=== PATIENT | female | born 1965 | race Caucasian/White ===

== ENCOUNTER 2016-06-07 19:28 | Inpatient (IN) | payer MEDICAID ==
[~2016-06-07] VITALS: Ht 157.5 cm; Wt 58.5 kg
[~2016-06-07 19:28] MED LIST: ADVAIR 250/501 DISK INH; ALBUTEROL2.5 MG/3 M UPD; AUGMENTIN 875-11 TAB PO; BENZONATATE200 MG PO; BROVANA15 MCG/2 M INH; CARDIZEM CD120 MG PO; CARDIZEM60 MG PO; CEFTIN PO; CLONAZEPAM2 MG/TAB; CLONAZEPAM2 MG/TAB PO; COMBIVENT RESPIM4 GM; COMBIVENT RESPIM4 GM INH; DALIRESP500 MCG PO; DIAMOX250 MG PO; DOXYCYCLINE HY100 M2 PO; DUONEB 2.5-0.5 M3 ML UPD; FLUTICASONE PRO16 GM NASAL; HYDROCODONE-APA1 TAB PO; IPRAT-ALBUT 0.5-3 ML UPD; KLONOPIN0.5 MG PO; KLONOPIN1 MG PO; LASIX20 MG PO; MEDROL DOSE PACK4 MG PO; MUCINEX DM ER1 EAC1 PO; MUCINEX600 MG PO; NORCO 10/325 TA1 TA1 PO; NORCO 7.5/325 T1 TA1 PO; OMEPRAZOLE20 M1 PO; OMNICEF300 MG PO; POTASSIUM20 MEQ/11 PO; PREDNISONE10 MG PO; PREDNISONE20 MG; PREDNISONE20 MG PO; PRILOSEC20 MG PO; PROLASTIN; PROTONIX40 MG PO; PROVENTIL/2.5 MG/3 M INH; PULMICORT0.5 MG/21 INH; PULMICORT0.5 MG/21 UPD; PULMICORT180 MCG/AE INH; SINGULAIR10 MG PO; SPIRIVA18 MCG INH; STERAPRED 5MG 125 MG PO; THEO-24300 MG PO; THEOCHRON200 MG; THEOCHRON300 MG PO; THEOPHYLLINE A300 MG PO; TIAZAC/CARDIZE180 MG PO; VENTOLIN HFA18 GM INH; VIBRAMYCIN 100100 MG PO; VIBRAMYCIN50 MG/5 ML PO; XANAX0.25 MG PO; XANAX0.5 MG PO; ZANTAC150 MG PO; ZITHROMAX500 MG PO
[2016-06-07 20:49] LABS: BASOPHILS 0.1 % (0.0-2.0); EOSINOPHILS 0 % (0-7); HEMATOCRIT 41.9 % (36.0-48.0); HEMOGLOBIN 13.3 g/dL (12-16); IMMATURE GRANULOCYTES 0.4 % (0-5); LYMPHOCYTES 6.6 % (15-50); MCH 28.3 pg (26.0-34.0); MCHC 31.7 g/dL (31.0-37.0); MCV 89.1 fL (80.0-100.0); MEAN PLATELET VOLUME 9.6 fL (7.4-10.4); MONOCYTES 8.4 % (2-11); NEUTROPHILS 84.5 % (40-80); RDW 14.7 % (11.5-14.5); WBC 8.2 10x3/uL (4.8-10.8)
[2016-06-07 20:50] LABS: PLATELET COUNT 230 10x3/uL (130-400)
[2016-06-07 21:00] LABS: ALBUMIN 3.2 g/dL (3.4-5.0); ALKALINE PHOSPHATASE 74 U/L (46-116); ALT (SGPT) 21 U/L (10-68); BILIRUBIN - TOTAL 0.82 mg/dL (0.2-1.3); CALC OSMOLALITY 270 mosm/kg (275-300); CALCIUM 9.6 mg/dL (8.5-10.1); CARBON DIOXIDE 28.3 mmol/L (21.0-32.0); CHLORIDE - SERUM 97 mmol/L (98-107); CREATININE - SERUM 0.5 mg/dL (0.6-1.3); GLUCOSE 117 mg/dL (74-106); POTASSIUM - SERUM 3.9 mmol/L (3.5-5.1); PROTEIN - SERUM 7.1 g/dL (6.4-8.2); SODIUM 136 mmol/L (136-145); UREA NITROGEN 8 mg/dL (7-18); eGFR NON AFRICAN AMERICAN > 90 mL/min (90-120)
[2016-06-07 21:05] LABS: THEOPHYLLINE 5.6 ug/mL (10.0-20.0)
[2016-06-07 21:11] LABS: TROPONIN-I < 0.017 ng/mL (0.000-0.060)
[2016-06-08 00:14] VITALS: BP 104/66; BMI 23.6
--- NOTE | 2016-06-08 05:07 | NUR ---
SOLUMEDROL GIVEN PER MAR ALONG WITH PRN NORCO FOR C/O BACK PAIN, ELTON WELL, CL IN REACH
[2016-06-08 05:30] LABS: BASOPHILS 0 % (0.0-2.0); EOSINOPHILS 0 % (0-7); HEMATOCRIT 39.5 % (36.0-48.0); HEMOGLOBIN 12.9 g/dL (12-16); IMMATURE GRANULOCYTES 0.4 % (0-5); LYMPHOCYTES 5.8 % (15-50); MCH 28.7 pg (26.0-34.0); MCHC 32.7 g/dL (31.0-37.0); MEAN PLATELET VOLUME 9.9 fL (7.4-10.4); MONOCYTES 3.1 % (2-11); NEUTROPHILS 90.7 % (40-80); PLATELET COUNT 238 10x3/uL (130-400); RBC 4.49 10x6/uL (4.00-5.40); RDW 14.5 % (11.5-14.5); WBC 8.4 10x3/uL (4.8-10.8)
[2016-06-08 05:55] LABS: CALC OSMOLALITY 276 mosm/kg (275-300); CALCIUM 9.1 mg/dL (8.5-10.1); CARBON DIOXIDE 29.8 mmol/L (21.0-32.0); CHLORIDE - SERUM 99 mmol/L (98-107); CREATININE - SERUM 0.5 mg/dL (0.6-1.3); GLUCOSE 129 mg/dL (74-106); POTASSIUM - SERUM 3.7 mmol/L (3.5-5.1); SODIUM 138 mmol/L (136-145); UREA NITROGEN 9 mg/dL (7-18); eGFR NON AFRICAN AMERICAN > 90 mL/min (90-120)
--- NOTE | 2016-06-08 07:15 | NUR ---
PATIENT RECEIVED ALERT IN HIGH PEREIRA POSITION. RESPIRATIONS EVEN AND UNLABORED. SIDE RAILS UP X1. BED IN LOW POSITION. CALL LIGHT IN REACH. GUEST AT BEDSIDE.
[2016-06-08 08:13] VITALS: BP 107/65
--- NOTE | 2016-06-08 09:27 | NUR ---
PATIENT ALERT IN BED. FAMILY AT BEDSIDE. SCHEDULED MEDICATION ADMINISTERED. SIDE RAILS UP X2. BED IN LOW POSITION. CALL LIGHT IN REACH.
--- NOTE | 2016-06-08 10:10 | NUR ---
IV TO LEFT HAND SALINE LOCKED PER ORDER.
--- NOTE | 2016-06-08 10:45 | NUR ---
ALERT IN BED WITH FAMILY PRESENT. REFUSES SCDS
[2016-06-08 11:00] VITALS: Ht 157.5 cm; Wt 58.5 kg
[2016-06-08 11:56] VITALS: BP 112/70
--- NOTE | 2016-06-08 13:30 | NUR ---
PATIENT SITTING UP IN BED ALERT. NO SIGNS OF DISTRESS NOTED. NORCO PER PRN ORDER. FAMILY AT BEDSIDE. SIDE RAILS UPX2. BED IN LOW POSITION. CALL LIGHT IN REACH.
[2016-06-08 15:52] VITALS: BP 119/64
--- NOTE | 2016-06-08 16:19 | NUR ---
Patient Name: NEEL MARIE Admission Status: ER Accout number: [id number] Admission Date: 06-07-2016 : 1965 Admission Diagnosis: Attending: LOS Current LOS: 1 Anticipated DC Date: 06-13-2016 Planned Disposition: Home with Home Health Primary Insurance: MEDICAID [place] Discharge Planning Comments: CM MET WITH PATIENT AND SPOUSE (SHWETHA) REGARDING D/C NEEDS AND PLANS. PATIENT STATED HER SPOUSE WILL DRIVE HER HOME AT DISCHARGE. THERE ARE 3 STEPS W/RAILS TO ENTER HOME AND NO STAIRS INSIDE. PATIENT STATED SHE WALKS WITH A WALKER AT HOME AND ALSO HAS A SHOWER CHAIR, OXYGEN, NEBULIZER, AND PORTABLE O2 AT HOME. PATIENTS PCP IS DR. MCCALL IN [facility] AND USES [facility] IN [place]. PATIENT IS CURRENT WITH [facility]. PCP DR MCCALL [facility] [place]- [phone] SHWETHA (SPOUSE) [phone] Sand Mixer: Ethel Florian
--- NOTE | 2016-06-08 16:30 | NUR ---
PATIENT SITTING UP IN BED. FAMILY AT BEDSIDE. SCHEDULED MEDICATION ADMINISTERED. DENIES NEEDS. SIDE RAILS UP X2. BED IN LOW POSITION. CALL LIGHT IN REACH.
--- NOTE | 2016-06-08 17:45 | NUR ---
SITTING UP ALERT IN BED. C/O PAIN 01/29. 1 TAB NORCO PER PRN ORDER. SIDE RAILS UP X2. BED IN LOW POSITION. CALL LIGHT IN REACH.
[2016-06-08 21:32] VITALS: BP 165/47
[2016-06-09 01:00] VITALS: BP 123/72
--- NOTE | 2016-06-09 02:30 | NUR ---
PATIENT STATED SHE NEEDS SOMETHING FOR 10/10 PAIN. ADMINISTERED PAIN MEDS DUE.
[2016-06-09 05:49] LABS: BASOPHILS 0 % (0.0-2.0); EOSINOPHILS 0 % (0-7); HEMATOCRIT 33.9 % (36.0-48.0); IMMATURE GRANULOCYTES 0.1 % (0-5); LYMPHOCYTES 4.3 % (15-50); MCH 28.4 pg (26.0-34.0); MCHC 32.4 g/dL (31.0-37.0); MCV 87.6 fL (80.0-100.0); MEAN PLATELET VOLUME 10.3 fL (7.4-10.4); MONOCYTES 5.1 % (2-11); NEUTROPHILS 90.5 % (40-80); PLATELET COUNT 235 10x3/uL (130-400); RBC 3.87 10x6/uL (4.00-5.40); RDW 14.6 % (11.5-14.5); WBC 7.7 10x3/uL (4.8-10.8)
[2016-06-09 06:24] LABS: ALBUMIN 2.8 g/dL (3.4-5.0); ALKALINE PHOSPHATASE 55 U/L (46-116); ALT (SGPT) 21 U/L (10-68); BILIRUBIN - TOTAL 0.32 mg/dL (0.2-1.3); CALC OSMOLALITY 281 mosm/kg (275-300); CALCIUM 9.4 mg/dL (8.5-10.1); CARBON DIOXIDE 33.4 mmol/L (21.0-32.0); CHLORIDE - SERUM 100 mmol/L (98-107); CREATININE - SERUM 0.5 mg/dL (0.6-1.3); GLUCOSE 149 mg/dL (74-106); MAGNESIUM - SERUM 1.8 mg/dL (1.8-2.4); PHOSPHOROUS 2.2 mg/dL (2.5-4.9); POTASSIUM - SERUM 3.8 mmol/L (3.5-5.1); PRO BNP 145 pg/mL (0-125); PROTEIN - SERUM 5.9 g/dL (6.4-8.2); SODIUM 140 mmol/L (136-145); UREA NITROGEN 12 mg/dL (7-18); eGFR NON AFRICAN AMERICAN > 90 mL/min (90-120)
--- NOTE | 2016-06-09 07:10 | NUR ---
PATIENT RECEIVED ALERT IN BED. NO SIGNS OF DISTRESS NOTED. IV TO LEFT HAND SALINE LOCKED. SIDE RAILS UP X2. BED IN LOW POSITION. CALL LIGHT IN REACH.
[2016-06-09 08:19] VITALS: BP 106/69
--- NOTE | 2016-06-09 08:43 | NUR ---
PATIENT SITTING UPRIGHT IN BED. FAMILY AT BEDSIDE. SCHEDULED MEDICATION ADMINISTERED WELL PRN ZOFRAN. BED IN LOW POSITION. CALL LIGHT IN REACH.
--- NOTE | 2016-06-09 11:45 | NUR ---
PATIENT IN MID PEREIRA POSITION RESTING WITH EYES CLOSED. RESPIRATIONS EVEN AND UNLABORED. SIDE RAILS UP X2. BED IN LOW POSITION. CALL LIGHT IN REACH.
[2016-06-09 11:53] VITALS: BP 148/62
--- NOTE | 2016-06-09 14:24 | NUR ---
ALERT IN BED. FAMILY AT BEDSIDE. SCHEDULED MEDICATION ADMINISTERED. BED IN LOW POSITION. CALL LIGHT IN REACH.
--- NOTE | 2016-06-09 17:32 | NUR ---
SITTING UP IN BED EATING DINNER. TOLERATING WELL. FAMILY AT BEDSIDE. SIDE RAILS UP X2. BED IN LOW POSITION. CALL LIGHT IN REACH.
[2016-06-09 17:34] VITALS: BP 121/74
[2016-06-09 21:00] VITALS: BP 118/67
[2016-06-10 01:00] VITALS: BP 110/68
[2016-06-10 05:00] VITALS: BP 133/84
[2016-06-10 05:40] LABS: BASOPHILS 0 % (0.0-2.0); EOSINOPHILS 0 % (0-7); HEMATOCRIT 33.3 % (36.0-48.0); HEMOGLOBIN 10.4 g/dL (12-16); IMMATURE GRANULOCYTES 0.5 % (0-5); LYMPHOCYTES 10.1 % (15-50); MCHC 31.2 g/dL (31.0-37.0); MCV 89.5 fL (80.0-100.0); MEAN PLATELET VOLUME 10.1 fL (7.4-10.4); MONOCYTES 5.6 % (2-11); NEUTROPHILS 83.8 % (40-80); PLATELET COUNT 225 10x3/uL (130-400); RBC 3.72 10x6/uL (4.00-5.40); RDW 14.6 % (11.5-14.5)
[2016-06-10 05:55] LABS: WBC 3.8 10x3/uL (4.8-10.8)
[2016-06-10 06:01] LABS: % SATURATION 37 % (15-55); IRON 100 ug/dl (35-150); TOTAL IRON BIND CAPACITY 268 ug/dl (260-445); UNSAT IRON BIND CAPACITY 168 ug/dl (150-375)
[2016-06-10 06:16] LABS: ALBUMIN 2.7 g/dL (3.4-5.0); ALKALINE PHOSPHATASE 60 U/L (46-116); BILIRUBIN - TOTAL 0.22 mg/dL (0.2-1.3); CARBON DIOXIDE 37.3 mmol/L (21.0-32.0); CHLORIDE - SERUM 100 mmol/L (98-107); CREATININE - SERUM 0.6 mg/dL (0.6-1.3); FERRITIN 207 ng/mL (3-244); GLUCOSE 124 mg/dL (74-106); POTASSIUM - SERUM 4.2 mmol/L (3.5-5.1); PROTEIN - SERUM 6.4 g/dL (6.4-8.2); SODIUM 140 mmol/L (136-145); eGFR NON AFRICAN AMERICAN > 90 mL/min (90-120)
[2016-06-10 06:17] LABS: ALT (SGPT) 68 U/L (10-68); CALC OSMOLALITY 281 mosm/kg (275-300); UREA NITROGEN 17 mg/dL (7-18)
--- NOTE | 2016-06-10 07:32 | NUR ---
PATIENT AWAKE, LYING IN BED, ALERT/ORIENT. C/O OF NAUSEA. OXYGEN ON AT 2L PER N/C. CALL LIGHT WITHIN REACH.
[2016-06-10 08:32] VITALS: BP 128/68
--- NOTE | 2016-06-10 11:25 | NUR ---
PRN PAIN MEDICATION GIVEN FOR GENERALIZED AND ALL OVER PAIN/DISC
[2016-06-10 11:50] VITALS: BP 147/82
--- NOTE | 2016-06-10 12:10 | NUR ---
NUTRITION MONITORING & EVAL CHART REVIEWED, PT VISIT. REG DIET WITH 50% INTAKE. DRINKING ENSURE WITH MEALS. RD FOLLOWING
--- NOTE | 2016-06-10 14:43 | NUR ---
DR. MADISON IN SEE PATIENT. NEW ORDERS RECEIVED
--- NOTE | 2016-06-10 14:53 | NUR ---
PRN ZOFRAN GIVEN FOR NAUSEA
[2016-06-10 16:17] VITALS: BP 120/76
--- NOTE | 2016-06-10 16:40 | EC ---
PATIENT:NEEL MARIE DATE OF SERVICE: 06/07/16 SEX: F MEDICAL RECORD: [id number] DATE OF : 63 LOCATION:[facility] AGE OF PATIENT: 50 ADMISSION DATE: 06/07/16 REFERRING PHYSICIAN: INTERPRETING PHYSICIAN: ROSE MARC MD ECHOCARDIOGRAM REPORT ECHO CHARGES 4 ECHO COMPLETE CLINICAL DIAGNOSIS: SOB HX COPD/PALPS ECHOCARDIOGRAPHIC MEASUREMENTS (adult normal given) AC root (d.<3.7cm) 2.8 LV Septum d (<1.2 cm> 1.3 Valve Excursion 1.3 LV Septum (systole) 1.7 Left Atria (s.<4.0cm> 2.4 LVPW d(<1.2cm) 1.4 RV (d.<2.3cm) 2.9 LVPW (sytole) 1.5 LV diastole(<5.6CM) 4.6 MV E-F(>70mm/sec) LV systole 3.3 LVOT Diameter 1.5 MV exc.(>10mm) 1.7 Est.ejection fraction (50-75%) Pericardial Effusion N DOPPLER: LVIT A 108 E 83.0 LA RVSP 33 LVOT 113 AOP1/2T Asc. Ao 122 RVOT 79 RA PA 128 AV Gradient Peak 6.0 AV Mean 2.73 AV Area 1.5 MV Gradient Peak 6.90 MV Mean 3.6 MV Area COMMENTS: Software Installer: Brittany FLYNN Generator Worker:Estefania Marc TAPE# PACS DATE OF SERVICE: 06/09/2016 Echocardiogram FINDINGS: 1. Left ventricular chamber size is within normal limits. Left ventricular systolic function is normal. Overall ejection fraction estimated at 55%. 2. Left atrium, right atrium and right ventricular chamber sizes are within normal limits. 3. Valvular structures have normal structure and motion. ECHOCARDIOGRAM REPORT [id number] NEEL MARIE 4. Doppler interrogation reveals mild tricuspid regurgitation. No other valvular insufficiency or stenosis. 5. No evidence of pericardial effusion or left ventricular thrombus. TRANSINT:[id number] Voice Confirmation ID: [id number] DOCUMENT ID: [id number] ROSE MARC MD at 1640 CC: [id number] DICTATION DATE: 06/10/16 1052 CABLE REELER: 06/10/16 1446 ADM IN [facility] [address] [id number]
--- NOTE | 2016-06-10 18:11 | NUR ---
RELIEF FROM PRN ZOFRAN. ABLE TO EAT 25% OF SUPPER
[2016-06-10 20:19] VITALS: BP 109/66
[2016-06-11 04:20] VITALS: BP 145/78
[2016-06-11 05:24] LABS: BASOPHILS 0 % (0.0-2.0); EOSINOPHILS 0 % (0-7); HEMATOCRIT 35.1 % (36.0-48.0); HEMOGLOBIN 10.5 g/dL (12-16); IMMATURE GRANULOCYTES 5.6 % (0-5); LYMPHOCYTES 12.6 % (15-50); MCH 27.3 pg (26.0-34.0); MCHC 29.9 g/dL (31.0-37.0); MCV 91.2 fL (80.0-100.0); MEAN PLATELET VOLUME 10.1 fL (7.4-10.4); NEUTROPHILS 74.8 % (40-80); PLATELET COUNT 258 10x3/uL (130-400); RBC 3.85 10x6/uL (4.00-5.40); RDW 14.7 % (11.5-14.5)
[2016-06-11 05:46] LABS: ALBUMIN 2.8 g/dL (3.4-5.0); ALKALINE PHOSPHATASE 66 U/L (46-116); CALC OSMOLALITY 281 mosm/kg (275-300); CALCIUM 9.2 mg/dL (8.5-10.1); CARBON DIOXIDE 39.2 mmol/L (21.0-32.0); CHLORIDE - SERUM 100 mmol/L (98-107); CREATININE - SERUM 0.5 mg/dL (0.6-1.3); GLUCOSE 131 mg/dL (74-106); POTASSIUM - SERUM 4.4 mmol/L (3.5-5.1); PROTEIN - SERUM 6.2 g/dL (6.4-8.2); SODIUM 139 mmol/L (136-145); UREA NITROGEN 17 mg/dL (7-18); eGFR NON AFRICAN AMERICAN > 90 mL/min (90-120)
[2016-06-11 05:48] LABS: ALT (SGPT) 124 U/L (10-68)
--- NOTE | 2016-06-11 07:36 | NUR ---
AWAKE AND ALERT. ORIENTED X3. REQUESTED AND GIVNE ONE HYDROCODONE FOR C/O GENERALIZED PAIN AND 4MG ZOFRAN SLOW IVP FOR C/O NAUSEA. NON PRODUCTIVE COUGH NOTED. LUNGS WITH CRACKLES AND WHEEZES THROUGHOUT LUNG MONTERO. SKIN IS INTACT WITHOUT REDNESS. IV TO LEFT HAND IS PATNET WITHOUT REDNESS AT INSERTION SITE. REFUSED SCD'S.
--- NOTE | 2016-06-11 09:00 | NUR ---
TOOK AM MEDS WITHOUT DIFFICULTY. REPORTS PAIN IMPROVED WITH USE OF HYDROCODONE. NO NAUSEA AT THIS TIME.
[2016-06-11 10:06] VITALS: BP 134/86
--- NOTE | 2016-06-11 11:41 | NUR ---
REQUESTED AND GIVNE ONE HYDROCODONE PO FOR C/O GENERALIZED PAIN THAT IS CHRONIC. WILL MONITOR.
--- NOTE | 2016-06-11 12:30 | NUR ---
SITTING UP IN BED EATING LUNCH. AT BEDSIDE. DR. MADISON ROUNDED AND CHANGED PAIN MEDS PER 'S REQUEST. WILL MONITOR.
[2016-06-11 13:01] VITALS: BP 137/85
--- NOTE | 2016-06-11 14:45 | NUR ---
GETTING VERY ANXIOUS AT THIS TIME. SOME SOB NOTED AT THIS TIME. REQUESTED AND GIVEN 0.5 MG CLONIPIN FOR SAME. WILL MONITOR.
--- NOTE | 2016-06-11 17:30 | NUR ---
REQUESTED AND GIVEN ONE HYDROCODONE PO FOR C/O GENERALIZED PAIN LEVEL 10. WILL MONITOR. ATE PART OF SUPPER BUT C/O NAUSEA. WILL MONITOR.
--- NOTE | 2016-06-11 18:05 | NUR ---
REQUESTED AND GIVEN 4MG ZOFRAN SLOW IVP FOR NAUSEA. WILL MONITOR. NO CHANGES NOTED.
[2016-06-11 18:48] VITALS: BP 132/85
[2016-06-11 20:28] VITALS: BP 146/89
--- NOTE | 2016-06-11 23:24 | NUR ---
REC'D IN BED WITH EYES CLOSED EASILY AROUSED WHEN NAME IS CALLED. RESP EVEN AND SLIGHTLY LABORED. HAS BI-PAP IN USE. CAN EXPRESS NEEDS AND WANT. TAKE ALL PO MEDS WHOLE AND WITHOUT DIFFICULTY NOTED. ASSESSMENT COMPLETED. AT BEDSIDE. C/L IN REACH.
[2016-06-12] VITALS (7 sets, daily range): BP systolic 118–148; BP diastolic 70–89
--- NOTE | 2016-06-12 02:06 | NUR ---
RESTING WITH EYES CLOSED, NC IN PLACE, NO ACUTE DISTRESS NOTED, SR'S UP, CL IN REACH
[2016-06-12 04:53] LABS: BASOPHILS 0.5 % (0.0-2.0); EOSINOPHILS 0 % (0-7); HEMATOCRIT 37.9 % (36.0-48.0); HEMOGLOBIN 11.5 g/dL (12-16); IMMATURE GRANULOCYTES 10.5 % (0-5); LYMPHOCYTES 9.1 % (15-50); MCH 27.6 pg (26.0-34.0); MCHC 30.3 g/dL (31.0-37.0); MCV 90.9 fL (80.0-100.0); MEAN PLATELET VOLUME 9.6 fL (7.4-10.4); MONOCYTES 6.4 % (2-11); NEUTROPHILS 73.5 % (40-80); PLATELET COUNT 287 10x3/uL (130-400); RBC 4.17 10x6/uL (4.00-5.40); RDW 14.5 % (11.5-14.5); WBC 5.6 10x3/uL (4.8-10.8)
[2016-06-12 05:11] LABS: ALBUMIN 2.9 g/dL (3.4-5.0); ALKALINE PHOSPHATASE 90 U/L (46-116); CALC OSMOLALITY 285 mosm/kg (275-300); CALCIUM 8.7 mg/dL (8.5-10.1); CARBON DIOXIDE 39.9 mmol/L (21.0-32.0); CHLORIDE - SERUM 97 mmol/L (98-107); CREATININE - SERUM 0.5 mg/dL (0.6-1.3); GLUCOSE 133 mg/dL (74-106); POTASSIUM - SERUM 4.1 mmol/L (3.5-5.1); PROTEIN - SERUM 6.5 g/dL (6.4-8.2); SODIUM 141 mmol/L (136-145); UREA NITROGEN 20 mg/dL (7-18); eGFR NON AFRICAN AMERICAN > 90 mL/min (90-120)
[2016-06-12 05:15] LABS: ALT (SGPT) 418 U/L (10-68)
--- NOTE | 2016-06-12 08:35 | NUR ---
AWAKE AND ALERT. ORIENTED X 3. C/O BACK PAIN AT THIS TIME. LUNGS HAVE CRACKLES AND EXPIRATORY WHEZZES THROUGHOUT. SKIN IS INTACT WITHOUT REDNESS. IV TO LEFT HAND PATENT WITHOUT REDNESS AT INSERTION SIGHT. DENEIES NEEDS.
--- NOTE | 2016-06-12 09:45 | NUR ---
REQUESTED AND GIVNE O.5MG CLONIPIN PO FOR C/O AGITATION AND ANXIETY. WILL MONITOR.
--- NOTE | 2016-06-12 10:30 | NUR ---
RESTING QUIETLY WITH EYES CLOSED. BIPAP IN PLACE AT THIS TIME. AT BEDSIDE.
--- NOTE | 2016-06-12 12:35 | NUR ---
LUNCH SERVED IN ROOM. REQUESTED AND GIVNE ONE HYDROCODONE PO FOR C/O GENERALIZED PAIN LEVEL 10. WILL MONITOR.
--- NOTE | 2016-06-12 18:00 | NUR ---
C/O BEING SWIMMY HEADED. GIVEN 25MG ANITVERT PO. WILL MONITOR.
--- NOTE | 2016-06-12 18:30 | NUR ---
REQUESTED AND GIVEN ONE HYDROCODONE PO FOR C/O GENERALIZED PAIN LEVEL 9. WILL MONITOR.
--- NOTE | 2016-06-12 19:30 | NUR ---
REC'D IN BED AWAKE AND ALERT. RESP LABORED AT THIS TIME. CAN EXPRESS NEEDS AND WANTS. NO C/O NOTED OR VOICED AT THIS TIME. TURN AND REPOSITION SELF AB BORIS. ASSESSMENT COMPLETED. AT BEDSIDE. C/L IN REACH AT BEDSIDE.
--- NOTE | 2016-06-13 04:00 | NUR ---
PT IN BED WITH NO NEEDS. IV TO LEFT HAND INTACT AND SALINE LOC. PT REFUSING SCD'S. O2 @ 2 PER NASAL CANNULA. CRACKLES AND WHEEZED HEARD IN LUNG MONTERO. AT BEDSIDE. SIDE RAILS ARE UP X 2. BED IS LOW. CALL LIGHT IS IN REACH.
--- NOTE | 2016-06-13 04:59 | NUR ---
NO CHANGES NOTED AT THIS TIME WITH NO C/O NOTED OR VOICED AT THIS TIME. C/L IN REACH AT BEDSIDE
[2016-06-13 05:54] VITALS: BP 129/74
--- NOTE | 2016-06-13 06:11 | NUR ---
UNABLE TO START MORNING ABTX AT THIS TIME D/T PT IV INFILTRATED AND SHE REFUSING TO BE RESITED AT THIS TIME. WILL INFORM ONCOMING NURSE OF PT REFUSAL. PT VERY ANXIOUS AT THIS TIME. C/L IN REACH AT BEDSIDE.
[2016-06-13 06:40] LABS: BASOPHILS 0.1 % (0.0-2.0); EOSINOPHILS 0.1 % (0-7); HEMATOCRIT 40.5 % (36.0-48.0); HEMOGLOBIN 12.1 g/dL (12-16); IMMATURE GRANULOCYTES 9.5 % (0-5); LYMPHOCYTES 7.8 % (15-50); MCH 27.6 pg (26.0-34.0); MCHC 29.9 g/dL (31.0-37.0); MCV 92.3 fL (80.0-100.0); MONOCYTES 6.8 % (2-11); NEUTROPHILS 75.7 % (40-80); PLATELET COUNT 307 10x3/uL (130-400); RBC 4.39 10x6/uL (4.00-5.40); RDW 14.5 % (11.5-14.5)
[2016-06-13 06:42] LABS: WBC 8.8 10x3/uL (4.8-10.8)
[2016-06-13 07:06] LABS: ALBUMIN 3.2 g/dL (3.4-5.0); ALKALINE PHOSPHATASE 83 U/L (46-116); ALT (SGPT) 325 U/L (10-68); CALC OSMOLALITY 287 mosm/kg (275-300); CALCIUM 8.9 mg/dL (8.5-10.1); CHLORIDE - SERUM 96 mmol/L (98-107); CREATININE - SERUM 0.5 mg/dL (0.6-1.3); GLUCOSE 148 mg/dL (74-106); POTASSIUM - SERUM 4.3 mmol/L (3.5-5.1); PROTEIN - SERUM 6.4 g/dL (6.4-8.2); SODIUM 142 mmol/L (136-145); UREA NITROGEN 19 mg/dL (7-18); eGFR NON AFRICAN AMERICAN > 90 mL/min (90-120)
[2016-06-13 07:25] LABS: CARBON DIOXIDE 44.2 mmol/L (21.0-32.0)
--- NOTE | 2016-06-13 07:30 | NUR ---
AWAKE AND ALERT. ORIENTED X3. C/O INTENSE BACK PAIN AND GENERALIZED PAIN AT THIS TIME. UNABLE TO GIVE PRN DUE TO TIME CONSTRANTS. LUNGS HAVE CRACKLES WHEEZES THROUGHOUT LUNG MONTERO. OCCASSIONALLLY PRODUCTIVE COUGH NOTED. SL TO RIGHT HAND PATENT WITHOUT REDNESS AT INSERTION SITE. DENIES NEEDS.
--- NOTE | 2016-06-13 11:31 | NUR ---
REQUESTED AND GIVEN ONE HYDROCODONE PO FOR C/O GENERALIZED PAIN LEVEL 10. WILL MONITOR.
[2016-06-13 12:57] VITALS: BP 139/84
[2016-06-13 16:10] VITALS: BP 123/75
--- NOTE | 2016-06-13 17:30 | NUR ---
REQUESTED AND GIVEN ONE HYDROCODONE PO FOR C/O GENERALIZED PAIN LEVEL 10. WILL MONITOR.
--- NOTE | 2016-06-13 18:43 | NUR ---
BACK IN ROOM. SITTING UP EATING DINNER. REPORTS PAIN IMPROVED. DENIES NEEDS. NO CHANGES NOTED.
--- NOTE | 2016-06-13 19:55 | NUR ---
ASSESSMENT COMPLETED, NO ACUTE DISTRESS NOTED, NC IN PLACE, SR'S UP X2, CL IN REACH, SPOUSE IN ROOM, WILL MONITOR
[2016-06-13 21:00] VITALS: BP 131/79
--- NOTE | 2016-06-13 21:14 | NUR ---
MEDS GIVEN PER MAR, ELTON WELL, NO ACUTE DISTRESS NOTED, SPOUSE IN ROOM, CL IN REACH
--- NOTE | 2016-06-13 21:30 | NUR ---
KLONAZEPAM GIVEN PER PT REQUEST, ELTON WELL
[2016-06-14 01:00] VITALS: BP 125/70
--- NOTE | 2016-06-14 01:57 | NUR ---
PRN PAIN MED GIVEN FOR C/O "HEAD TO TOE PAIN" 02/28, ELTON WELL, SPOUSE IN ROOM CL IN REACH
[2016-06-14 05:00] VITALS: BP 155/78
--- NOTE | 2016-06-14 05:17 | NUR ---
PRN KLONIPIN GIVEN PER REQUEST FOR ANXIETY ALONG WITH ROUTINE MEDS, ELTON WELL, CL IN REACH, SPOUSE IN ROOM
[2016-06-14 05:51] LABS: BASOPHILS 0.3 % (0.0-2.0); EOSINOPHILS 0 % (0-7); HEMOGLOBIN 13.4 g/dL (12-16); IMMATURE GRANULOCYTES 9.4 % (0-5); LYMPHOCYTES 10.7 % (15-50); MCH 27.9 pg (26.0-34.0); MCHC 30.5 g/dL (31.0-37.0); MCV 91.7 fL (80.0-100.0); MEAN PLATELET VOLUME 9.6 fL (7.4-10.4); MONOCYTES 9.4 % (2-11); NEUTROPHILS 70.2 % (40-80); PLATELET COUNT 391 10x3/uL (130-400); RDW 14.6 % (11.5-14.5); WBC 13.9 10x3/uL (4.8-10.8)
[2016-06-14 06:10] LABS: ALBUMIN 3.3 g/dL (3.4-5.0); ALKALINE PHOSPHATASE 85 U/L (46-116); ALT (SGPT) 250 U/L (10-68); BILIRUBIN - TOTAL 0.31 mg/dL (0.2-1.3); CALC OSMOLALITY 286 mosm/kg (275-300); CALCIUM 9.4 mg/dL (8.5-10.1); CHLORIDE - SERUM 96 mmol/L (98-107); CREATININE - SERUM 0.5 mg/dL (0.6-1.3); GLUCOSE 112 mg/dL (74-106); POTASSIUM - SERUM 4.4 mmol/L (3.5-5.1); PROTEIN - SERUM 6.6 g/dL (6.4-8.2); SODIUM 143 mmol/L (136-145); UREA NITROGEN 15 mg/dL (7-18); eGFR NON AFRICAN AMERICAN > 90 mL/min (90-120)
[2016-06-14 06:31] LABS: CARBON DIOXIDE 46.8 mmol/L (21.0-32.0)
--- NOTE | 2016-06-14 07:00 | NUR ---
REPORT RECIEVED ASSUMED CARE. PATIENT IN BED WITH IV INTACT. NO COMPLAINTS. CALL LIGHT WITHIN REACH.
[2016-06-14 09:14] VITALS: BP 139/88
[2016-06-14 11:10] VITALS: BP 159/85
[2016-06-14 15:46] VITALS: BP 129/74
--- NOTE | 2016-06-14 16:50 | NUR ---
PATIENT IN BED WITH IV INTACT. NO COMPLAINTS. FAMILY AT BEDSIDE. CALL LIGHT WITHIN REACH.
--- NOTE | 2016-06-14 18:36 | NUR ---
PATIENT RECIEVED PROTONIX AND ZOFRAN FOR NAUSEA. IV INTACT. NO OTHER COMPLAINTS. FAMILY AT BEDSIDE. CALL LIGHT WITHIN REACH.
--- NOTE | 2016-06-14 20:10 | NUR ---
ASSESSMENT COMPLETED, NO ACUTE DISTRESS NOTED, SR'S UP X2, CL IN REACH, SPOUSE AT BEDSIDE, WILL MONITOR
--- NOTE | 2016-06-14 20:54 | NUR ---
MEDS GIVE PER MAR ALONG WITH PRN PAIN MEDS, ELTON WELL, CL IN REACH, SPOUSE IN ROOM
[2016-06-14 21:00] VITALS: BP 139/79
--- NOTE | 2016-06-14 23:15 | NUR ---
RESTING WITH EYES CLOSED, NO RESP DISTRESS NOTED, HOB ELEVATED, NC IN PLACE, CL IN REACH, SPOUSE AT BEDSIDE
--- NOTE | 2016-06-15 03:48 | NUR ---
NORCO GIVEN PER MAR FOR C/O GENERALIZED PAIN 02/28, ELTON WELL, CL IN REACH
[2016-06-15 05:00] VITALS: BP 125/76
[2016-06-15 05:48] LABS: BASOPHILS 0.2 % (0.0-2.0); EOSINOPHILS 0 % (0-7); HEMATOCRIT 43.2 % (36.0-48.0); HEMOGLOBIN 12.8 g/dL (12-16); IMMATURE GRANULOCYTES 8.9 % (0-5); LYMPHOCYTES 12.4 % (15-50); MCH 27.2 pg (26.0-34.0); MCHC 29.6 g/dL (31.0-37.0); MCV 91.7 fL (80.0-100.0); MEAN PLATELET VOLUME 9.4 fL (7.4-10.4); MONOCYTES 9.8 % (2-11); NEUTROPHILS 68.7 % (40-80); PLATELET COUNT 385 10x3/uL (130-400); RBC 4.71 10x6/uL (4.00-5.40); RDW 14.8 % (11.5-14.5)
[2016-06-15 05:50] LABS: WBC 9.6 10x3/uL (4.8-10.8)
[2016-06-15 06:20] LABS: ALKALINE PHOSPHATASE 73 U/L (46-116); BILIRUBIN - TOTAL 0.33 mg/dL (0.2-1.3); CALC OSMOLALITY 286 mosm/kg (275-300); CALCIUM 9.2 mg/dL (8.5-10.1); CHLORIDE - SERUM 98 mmol/L (98-107); CREATININE - SERUM 0.4 mg/dL (0.6-1.3); GLUCOSE 98 mg/dL (74-106); POTASSIUM - SERUM 3.8 mmol/L (3.5-5.1); PROTEIN - SERUM 6.3 g/dL (6.4-8.2); SODIUM 143 mmol/L (136-145); UREA NITROGEN 17 mg/dL (7-18); eGFR NON AFRICAN AMERICAN > 90 mL/min (90-120)
[2016-06-15 06:22] LABS: CARBON DIOXIDE 45.8 mmol/L (21.0-32.0)
[2016-06-15 06:23] LABS: ALT (SGPT) 163 U/L (10-68)
[2016-06-15 08:11] VITALS: BP 131/84
--- NOTE | 2016-06-15 08:58 | NUR ---
SCHEDULED MEDICATIONS ADMINISTERED AT THIS TIME WELL PRN ZOFRAN FOR C.O NAUSEA AT THIS TIME.
--- NOTE | 2016-06-15 09:51 | NUR ---
NUTRITION MONITORING & EVAL CHART REVIEWED. REG DIET, 25% INTAKE BREAKFAST. ENSURE WITH MEALS. WILL HONOR FOOD PREFERENCES, PROVIDE ENSURE. RD FOLLOWING
--- NOTE | 2016-06-15 10:25 | NUR ---
C/O DIZZINESS AT THIS TIME. VITAL SIGNS OBTAINED. BP 151/82 AND PULSE 109. WILL ADMINISTER ANTIVERT AND NORCO-5.
--- NOTE | 2016-06-15 10:44 | NUR ---
CM REASSESSMENT NOTE: CM MET WITH PATIENT AND SPOUSE THIS AM. SPOUSE STATED THEY DECIDED LAST NIGHT NOT TO GO WITH HOSPICE. STATED THEY WOULD STAY WITH [facility] FOR NOW. HOSPICE WAS NOTIFIED OF PATIENTS DECISION
[2016-06-15] MEDS ORDERED: CEFUROXIME250 MG PO (12:00)
[2016-06-15] MEDS ORDERED: MEDROL DOSE PACK4 MG PO (12:01)
--- NOTE | 2016-06-15 12:10 | NUR ---
PT TO D/C HOME TODAY. DENIES NEEDS AT THIS TIME. WILL CONTINUE WITH PLAN OF CARE.
[2016-06-15 12:13] VITALS: BP 132/86
--- NOTE | 2016-06-15 14:19 | NUR ---
CM REASSESSMENT NOTE: PATIENT IS DISCHARGING HOME TODAY-SPOUSE DRIVING PATIENT HOME. PATIENT IS CURRENT WITH [facility] AND THEY ARE AWARE OF DISCHARGE.
--- NOTE | 2016-06-15 14:55 | NUR ---
DISCHARGE PAPERWORK REVIEWED AND GIVEN TO PT. IV TO RIGHT HAND D/C WITH CATH TIP INTACT. DENIES QUESTIONS OR CONCERNS. D/C HOME WITH VIA PRIVATE VEHICLE.
[2016-06-17 16:15] LABS: AEROBE ID Final report (())
--- NOTE | 2016-08-18 11:10 | DS ---
PATIENT:NEEL MARIE :63 MEDICAL RECORD: [id number] DISCHARGE SUMMARY ADMISSION DATE: 06/07/16 DISCHARGE DATE: 06/15/16 DATE OF ADMISSION: 06/07/2016 DATE OF DISCHARGE: 06/15/2016 DISCHARGE DIAGNOSES: 1. Acute exacerbation of chronic obstructive pulmonary disease. 2. Pneumonia. 3. ____. 4. Allergic rhinitis. 5. Anxiety. 6. Usups-nl-vpnmpdj hypoxic hypercapnic respiratory failure. 7. Severe end-stage chronic obstructive pulmonary disease. CONSULTS: Vasyl Sterling MD. DIAGNOSTIC TEST OR STUDIES: 1. Chest x-ray, which shows emphysema and bilateral infiltrates and effusions. 2. MRI of the brain, which showed no acute pathology. 3. CT of the abdomen and pelvis, which showed no acute abdominal or pelvic pathology, hepatic stenosis and hepatomegaly. HOSPITAL COURSE: The full H&P is listed elsewhere on the chart for this 50-year-old patient with end-stage renal disease, who presented with [id number] hypoxic and hypercapnic respiratory failure, required an inpatient admit. The patient was started on aggressive pulmonary toilet with broad-spectrum antibiotic therapy and steroids. The patient did have some transient tachycardia. It was felt to be due to her respiratory medications. Her theophylline was discontinued. Her Cardizem was increased due to the tachycardia for rate control. The patient's clinical condition improved with aggressive pulmonary toilet. Antibiotic therapy was deescalated. The patient was thought to be stable for discharge to home with follow up in the outpatient setting. TRANSINT:[id number] Voice Confirmation ID: [id number] DOCUMENT ID: [id number] Dictated By: JODIE JAMES I have interviewed/examined the above patient and agree with these documented findings. MAHIN STAPLETON MD at 1110 at 0811 CC: [id number] DICTATION DATE: 08/17/16 0915 CATERER'S AIDE: 08/18/16 0055 DIS IN 06/15/16 [facility] [address] [place] [address]
== END 2016-06-15 15:00 | disposition home health service (06) | DRG 189 ==
LOC: D.ER 19:28 → D.MS 20:28
PROVIDERS: Emergency Medicine; Family Medicine; Internal Medicine Pulmonary Disease; ADMIT Family Medicine
DX: J96.22 Acute and chronic respiratory failure with hypercapnia (principal); J18.9 Pneumonia, unspecified organism; J44.0 Chronic obstructive pulmonary disease with (acute) lower respiratory infection; J98.11 Atelectasis; E46 Unspecified protein-calorie malnutrition; I50.30 Unspecified diastolic (congestive) heart failure; J44.1 Chronic obstructive pulmonary disease with (acute) exacerbation; J96.21 Acute and chronic respiratory failure with hypoxia; Z99.81 Dependence on supplemental oxygen; Z68.23 Body mass index [BMI] 23.0-23.9, adult; J30.9 Allergic rhinitis, unspecified; K21.9 Gastro-esophageal reflux disease without esophagitis; F41.9 Anxiety disorder, unspecified; Z91.19 Patient's noncompliance with other medical treatment and regimen; D64.9 Anemia, unspecified; R42 Dizziness and giddiness

== ENCOUNTER 2016-11-10 21:45 | Inpatient (IN) | payer MEDICAID ==
[~2016-11-10] VITALS: Ht 157.5 cm; Wt 51.9 kg
[~2016-11-10 21:45] MED LIST changes: +CEFUROXIME250 MG PO
[2016-11-10 22:51] LABS: BASOPHILS 0.3 % (0-2); EOSINOPHILS 6.4 % (0-7); IMMATURE GRANULOCYTES 0.1 % (0-5); LYMPHOCYTES 20.1 % (15-50); MCH 28.6 pg (26.0-34.0); MCHC 29.7 g/dL (31.0-37.0); MCV 96.1 fL (80.0-100.0); MEAN PLATELET VOLUME 10.2 fL (7.4-10.4); MONOCYTES 15.7 % (2-11); NEUTROPHILS 57.4 % (40-80); RBC 3.85 10x6/uL (4.00-5.40); RDW 13.3 % (11.5-14.5); WBC 7.8 10x3/uL (4.8-10.8)
[2016-11-10 22:53] LABS: PLATELET COUNT 242 10x3/uL (130-400)
[2016-11-10 23:06] LABS: ALBUMIN 2.9 g/dL (3.4-5.0); ALKALINE PHOSPHATASE 83 U/L (46-116); ALT (SGPT) 17 U/L (10-68); BILIRUBIN - TOTAL 0.52 mg/dL (0.2-1.3); CALC OSMOLALITY 284 mosm/kg (275-300); CALCIUM 9.1 mg/dL (8.5-10.1); CHLORIDE - SERUM 100 mmol/L (98-107); CREATININE - SERUM 0.6 mg/dL (0.6-1.3); GLUCOSE 128 mg/dL (74-106); MAGNESIUM - SERUM 1.9 mg/dL (1.8-2.4); POTASSIUM - SERUM 3.8 mmol/L (3.5-5.1); PROTEIN - SERUM 6.4 g/dL (6.4-8.2); SODIUM 142 mmol/L (136-145); UREA NITROGEN 13 mg/dL (7-18); eGFR NON AFRICAN AMERICAN > 90 mL/min (90-120)
[2016-11-10 23:15] LABS: CARBON DIOXIDE 41.8 mmol/L (21.0-32.0)
[2016-11-11 02:14] VITALS: BP 111/63; BMI 20.9
[2016-11-11 04:00] VITALS: BP 110/60
--- NOTE | 2016-11-11 07:45 | NUR ---
INTRODUCED MYSELF TO PT PRIMARY RN FOR TODAYS SHIFT. SHIFT ASSESSMENT COMPLETED. PT IS RESTING QUIETLY IN BED ON HER BIPAP. DENIES ANY CURRENT NEEDS AND WOULD LIKE TO CONTINUE RESTING AT THIS TIME. CL IN REACH, BED IN LOWEST, SIDE RAILS X2. WILL CTM.
[2016-11-11 08:00] VITALS: BP 129/79
--- NOTE | 2016-11-11 08:00 | NUR ---
PT REQUESTING TO HAVE HER BIPAP OFF TO EAT BREAKFAST SO I ALLOWED HER TO. PT WEARING HER NC @2L AND PULSE OX IS 95% PT C/O NECK AND GENERALIZED PAIN AND WAS PROVIDED WITH HER NORCO. UPDATED MED REC R/T IT BEING INCORRECT AND IS NOW MOST ACCURATE. PT HAS AT BEDSIDE AND DENIES ANY FURTHER NEEDS AT THIS TIME. CL IN REACH, BED IN LOWEST, SIDE RAILS X2. WILL CTM.
--- NOTE | 2016-11-11 10:21 | NUR ---
PT REFUSED TO PUT BIPAP BACK ON AT THIS TIME BUT STATES SHE WILL IN A LITTLE BIT. PT RR ARE EVEN AND NONLABORED WITH NC @2L IN PLACE AND PULSE OX 95% PT DENIES ANY SOB AND STATES SHE IS FEELING PRETTY GOOD. NO FURTHER NEEDS. WILL CTM.
[2016-11-11 12:00] VITALS: BP 99/53
[2016-11-11 12:32] VITALS: Ht 157.5 cm; Wt 51.9 kg
--- NOTE | 2016-11-11 14:34 | NUR ---
PTS L.AC PIV INFILTRATED. D/C WITH CATHETER TIP FULLY INTACT. WILL GET NEW IV ACCESS AND CTM.
--- NOTE | 2016-11-11 15:19 | NUR ---
PT RESTING IN BED WITH AT BEDSIDE. PROVIDED PT WITH SCHEDULED MEDS VIA L.FA PIV. SITE FLUSHES EASILY AND HAS GOOD BLOOD RETURN. PROVIDED PT WITH LOVENOX FOR DVT PROPHYLACTICS. PT DENIES ANY FURTHER NEEDS AT THIS TIME. CL IN REACH, BED IN LOWEST, SIDE RAILS X2. WILL CTM.
[2016-11-11 16:00] VITALS: BP 105/66
[2016-11-11 18:50] LABS: % SATURATION 18 % (15-55); IRON 45 ug/dl (35-150); TOTAL IRON BIND CAPACITY 250 ug/dl (260-445); UNSAT IRON BIND CAPACITY 205 ug/dl (150-375)
[2016-11-11 19:00] VITALS: BP 124/70
--- NOTE | 2016-11-11 19:10 | NUR ---
REC UPDRAFT TX. DENIES ANY NEEDS. RATES PAIN LEVEL AT 10 ON NUMBER SCALE, DESCRIBED ACHING, THROBBING "ALL OVER". IV IN L FA INTACT SL. HER IS PRESENT IN ROOM.
--- NOTE | 2016-11-11 23:00 | NUR ---
CALLED DR ROSARIO RE: PATIENT'S REQUEST FOR HOME MED CLONOPIN 1 MG PO THAT SHE TAKES FOR ANXIETY.
[2016-11-12] VITALS: BP 92/57
--- NOTE | 2016-11-12 00:05 | NUR ---
ADMIN CLONOPIN 1MG PO AND NORCO 7.5MG PO FOR C/O PAIN AND ANXIETY.
--- NOTE | 2016-11-12 00:05 | NUR ---
ADMIN CLONOPIN 1MG PO AND NORCO 7.5MG PO PER REQUEST FOR C/O CHRONIC PAIN "ALL OVER" DESCRIBED ACHING, THROBBING. REQUESTED BIPAP ON. WILL CALL RT.
--- NOTE | 2016-11-12 06:10 | NUR ---
ADMIN NORCO PO PER REQUEST FOR C/O ACHING, THROBBING PAIN LEVEL 10 "ALL OVER". REQUESTED MORE COFFEE.
[2016-11-12 06:40] LABS: BASOPHILS 0 % (0-2); EOSINOPHILS 0 % (0-7); HEMATOCRIT 34.6 % (36.0-48.0); HEMOGLOBIN 10.4 g/dL (12-16); IMMATURE GRANULOCYTES 0.3 % (0-5); LYMPHOCYTES 12.2 % (15-50); MCHC 30.1 g/dL (31.0-37.0); MCV 93.3 fL (80.0-100.0); MEAN PLATELET VOLUME 10.1 fL (7.4-10.4); MONOCYTES 4.8 % (2-11); NEUTROPHILS 82.7 % (40-80); PLATELET COUNT 278 10x3/uL (130-400); RBC 3.71 10x6/uL (4.00-5.40); RDW 13.3 % (11.5-14.5); WBC 3.8 10x3/uL (4.8-10.8)
[2016-11-12 06:54] LABS: CALC OSMOLALITY 284 mosm/kg (275-300); CALCIUM 9.5 mg/dL (8.5-10.1); CARBON DIOXIDE 39.1 mmol/L (21.0-32.0); CHLORIDE - SERUM 98 mmol/L (98-107); CREATININE - SERUM 0.6 mg/dL (0.6-1.3); GLUCOSE 145 mg/dL (74-106); SODIUM 141 mmol/L (136-145); UREA NITROGEN 14 mg/dL (7-18); eGFR NON AFRICAN AMERICAN > 90 mL/min (90-120)
--- NOTE | 2016-11-12 07:54 | NUR ---
INTRODUCED MYSELF TO PT PRIMARY RN FOR TODAYS SHIFT. PT IS A&O RESTING QUIETLY IN BED. RR NONLABORED WITH NC @2L IN PLACE. PT IS TO WEAR HER BIPAP OVERNIGHT AND STATES SHE DID. SHIFT ASSESSMENT COMPLETED. PT HAS A L.FA PIV WITH DRSG CDI AND SWAB CAPS IN USE. PT STATES SHE SLEPT WELL OVERALL AND HAD A GOOD NIGHT, DENIES ANY CURRENT PAIN OR NEEDS. CL IN REACH, BED IN LOWEST, SIDE RAILS X2. WILL CPOC.
[2016-11-12 08:00] VITALS: BP 116/68
--- NOTE | 2016-11-12 09:33 | NUR ---
MORNING MEDICATION PASS COMPLETED. PT REFUSED HER LOVENOX TODAY R/T IT HURTING ON ADMINSTRATION. I WENT INTO GREAT DETAIL OF REASONING AND PURPOSES OF THIS MED TO PREVENT BLOOD CLOTS AND PT STATES "I STILL DONT NEED IT I GET UP AND WALK AND MOVE AROUND A LOT" PT ALSO REFUSES TO WEAR SCDS BUT SHE IS AMBULATORY AND UP AD BORIS. PT RESTING IN BED WITH AT BEDSIDE. PT ALSO REFUSES HER KLONOPIN AND STATES SHE ONLY NEEDS IT PRN. CL IN REACH, BED IN LOWEST, SIDE RAILS X2. WILL CTM.
[2016-11-12 12:00] VITALS: BP 114/71
--- NOTE | 2016-11-12 12:50 | NUR ---
PT SITTING UP IN BED RESTING QUIETLY WITH AT BEDSIDE. RR NONLABORED WITH NC @2L IN PLACE. ENCOURAGED PT TO DEEP BREATHE AND DID TEACHING ON HOW TO PERFORM. PT DOESNT PERFORM CORRECTLY AND IS A MOUTH BREATHER BUT STATES SHE WILL WORK ON IT. NO FURTHER NEEDS AT THIS TIME. CL IN REACH, BED IN LOWEST, SIDE RAILS X2. WILL CTM.
--- NOTE | 2016-11-12 15:30 | NUR ---
PT RESTING IN BED QUIETLY VISITING WITH FAMILY DENIES ANY CURRENT NEEDS. WILL CTM.
[2016-11-12 16:00] VITALS: BP 119/71
--- NOTE | 2016-11-12 18:29 | NUR ---
PT C/O PAIN AND NAUSEA AND IRRITABILITY. PT NOT ABLE TO HAVE ANY MEDS TO TREAT IT AT THIS TIME. OFFERED PT AN ICE PACK BUT SHE DENIES WANTING IT. TURNED OUT LIGHTS AND PT IS GOING TO TRY AND REST. NO FURTHER NEEDS AT THIS TIME.
[2016-11-12 19:00] VITALS: BP 122/65
--- NOTE | 2016-11-12 19:15 | NUR ---
PT IN BED WITH AT BEDSIDE C/O NAUSEA AND ASKING ABOUT PAIN MEDICATION. TOLD HER LAST DOSE WAS 1730 AND NEXT DOSE ISNT TIL 2330. OFFERED [facility] [place] TO HELP. IV TO LEFT FORARM INTACT AND SALINE LOCKED.
--- NOTE | 2016-11-12 22:51 | NUR ---
PT C/O UNABLE TO SLEEP DUE TO PAIN ASKED FOR HER NORCO. GAVE HYDROCODONE 7.5 PER REQUEST,
[2016-11-13] VITALS (7 sets, daily range): BP systolic 119–150; BP diastolic 63–81
[2016-11-13 05:29] LABS: BASOPHILS 0 % (0-2); EOSINOPHILS 0 % (0-7); HEMATOCRIT 34.4 % (36.0-48.0); HEMOGLOBIN 10.5 g/dL (12-16); IMMATURE GRANULOCYTES 0.2 % (0-5); LYMPHOCYTES 7.8 % (15-50); MCH 28.1 pg (26.0-34.0); MCHC 30.5 g/dL (31.0-37.0); MEAN PLATELET VOLUME 9.5 fL (7.4-10.4); MONOCYTES 2.2 % (2-11); NEUTROPHILS 89.8 % (40-80); PLATELET COUNT 286 10x3/uL (130-400); RBC 3.74 10x6/uL (4.00-5.40); RDW 13.6 % (11.5-14.5)
[2016-11-13 05:44] LABS: CALC OSMOLALITY 280 mosm/kg (275-300); CALCIUM 9.3 mg/dL (8.5-10.1); CARBON DIOXIDE 37.6 mmol/L (21.0-32.0); CHLORIDE - SERUM 98 mmol/L (98-107); GLUCOSE 143 mg/dL (74-106); POTASSIUM - SERUM 4.1 mmol/L (3.5-5.1); SODIUM 139 mmol/L (136-145); UREA NITROGEN 15 mg/dL (7-18); eGFR NON AFRICAN AMERICAN 80 mL/min (90-120)
[2016-11-13 05:45] LABS: CREATININE - SERUM 0.8 mg/dL (0.6-1.3)
--- NOTE | 2016-11-13 10:00 | NUR ---
MORNING MEDICATIONS GIVEN. PT REFUSED HER LOVENOX AGAIN TODAY AND WAS QUESTIONING ALL HER OTHER MEDICATIONS. THOROUGH TEACHING PROVIDED AND PT AGREED TO TAKE HER OTHER MEDICATIONS BUT STILL SEEMS SKEPTICAL AND VERBALIZED UNDERSTANDING. PT STATES SHE IS NOT FEELING GOOD RIGHT NOW I PROVIDED HER WITH PRN PAIN MEDICATION AND SHE STILL IS COMPLAINING SHE ISNT FEELING WELL AND STATES SHES JUST SICK BUT CANT EXPLAIN HOW SHE FEELS SHE STATES. PT DENIES WANTING ANYTHING ELSE FROM ME AT THIS TIME. CL IN REACH, BED IN LOWEST, SIDE RAILS X2. WILL CPOC.
--- NOTE | 2016-11-13 19:00 | NUR ---
INITIAL ROUNDS MADE. PT SITTING UP IN BED WATCHING TV. RT IN ROOM FOR SCHEDULED UPD. DENIES NEEDS OR C/O AT THIS TIME. WILL CONT TO MONITOR.
--- NOTE | 2016-11-13 21:27 | NUR ---
HS MEDS GIVEN WITHOUT DIFFICULTY. WILL CONT TO MONITOR.
[2016-11-14 04:00] VITALS: BP 126/78
[2016-11-14 05:11] LABS: BASOPHILS 0 % (0-2); EOSINOPHILS 0 % (0-7); HEMATOCRIT 35.1 % (36.0-48.0); HEMOGLOBIN 10.7 g/dL (12-16); IMMATURE GRANULOCYTES 0.4 % (0-5); MCH 28.3 pg (26.0-34.0); MCHC 30.5 g/dL (31.0-37.0); MCV 92.9 fL (80.0-100.0); MEAN PLATELET VOLUME 9.9 fL (7.4-10.4); MONOCYTES 4.5 % (2-11); NEUTROPHILS 86.1 % (40-80); PLATELET COUNT 304 10x3/uL (130-400); RBC 3.78 10x6/uL (4.00-5.40); RDW 13.9 % (11.5-14.5); WBC 4.9 10x3/uL (4.8-10.8)
[2016-11-14 05:28] LABS: CALC OSMOLALITY 280 mosm/kg (275-300); CALCIUM 8.9 mg/dL (8.5-10.1); CARBON DIOXIDE 37.2 mmol/L (21.0-32.0); CHLORIDE - SERUM 101 mmol/L (98-107); GLUCOSE 131 mg/dL (74-106); SODIUM 140 mmol/L (136-145); UREA NITROGEN 12 mg/dL (7-18)
[2016-11-14 05:29] LABS: CREATININE - SERUM 0.5 mg/dL (0.6-1.3); POTASSIUM - SERUM 4.8 mmol/L (3.5-5.1); eGFR NON AFRICAN AMERICAN > 90 mL/min (90-120)
--- NOTE | 2016-11-14 07:57 | NUR ---
AM ROUNDING DONE WITH PATIENT RECEIVED A BREATHING TREATMENT AT THIS TIME. BIPAP AT BEDSIDE. DENIES NEEDS WHEN ASKED. ON 2L PER NC. LEFT FA SEEN WITH SALINE LOCK. ON EP, LAB VALUES ARE WNL.
[2016-11-14 08:21] VITALS: BP 138/82
--- NOTE | 2016-11-14 10:54 | NUR ---
Is the patient Alert and Oriented? Yes 0 * How many steps to enter\exit or inside your home? Three 0 * PCP DR Reed 0 * Pharmacy [facility] in [place], [place] 0 * Preadmission Environment Home with Family 0 * Partial ADLs (Assistance needed) Ambulation Bathing Dressing Medication Management 0 * Equipment Nebulizer Oxygen Rolling Walker 0 * Other Equipment Had BIPAP with [facility]- picked up today due to noncompliance as per Medicaid Oxygen and Nebulizer with [employer] 0 * List name and contact numbers for known caregivers / representatives who currently or will assist patient after discharge: Elsy Salazar [facility]- [phone] Rafael Amparo- [facility]- [phone] 0 * Additional services required to return to the preadmission environment? Yes 0 * Can the patient safely return to the preadmission environment? Yes 0 * Has this patient been hospitalized within the prior 30 days at any hospital? No 0
--- NOTE | 2016-11-14 11:15 | NUR ---
CM met w/ the patient and her , Arias, at the bedside. Naya plans on returning to home at discharge w/ family. She states she has had home health in the past with [facility]. Does not feel she will need h/h at discharge. Will advise CM if needed. CM received MD order to explore issue with patient's BIPAP and supplier. TC to [facility] regarding DME. Spoke with Landen at [facility]/ [facility]. They provide her oxygen and nebulizer but not the BIPAP. Patient gave permission to call the daughter, Elsy, she "handles all of those things". TC to [facility]. She did not know if patient had BIPAP, CPAP or Trilogy. But [facility] was the supplier. She states they had picked up the machine this AM. TC to [facility]. Spoke w/ Sandra. She stated the patient had BIPAP. Medicaid had been denying payment due to patient's noncompliance. They had apparently taken a previous machine away for same issue. Unable to resolve issue favorable for the patient. PCP DR Reed [facility]- [facility] in [place]. DME- oxygen. nebulizer, walker DME provider- [facility] TC to daughter. Advised her to call Medicaid and speak with hem personally as she states the patient has been complaint. Patient has 3 steps with side rail to enter her home. Denies any need at this time.
[2016-11-14 12:18] VITALS: BP 115/73
[2016-11-14 13:13] LABS: FOLATE (FOLIC ACID) - SERUM 9.2 ng/mL (>3.0)
[2016-11-14] MEDS ORDERED: Levaquin PO (16:06)
[2016-11-14] MEDS ORDERED: IPRAT-ALBUT 0.5-3 ML INH (16:07)
--- NOTE | 2016-11-14 17:57 | NUR ---
COMPLAINTS OF NAUSEA, ZOFRAN GIVEN. INFORMED PATIENT THAT SHE NEEDED TO WAIT 30 MIN BEFORE DISCHARGE.
--- NOTE | 2016-11-14 18:44 | NUR ---
ALERT AND ORIENTED X4. AT BEDSIDE. ANXIOUS TO GO HOME. EXPRESSES BEING MAD PAIN MEDICATIONS NO GIVEN DUE TO IT BEING 1 HOUR TOO SOON. DC LT HAND IV TIP INTACT. DISCHARGE INSTRUCTIONS GIVEN. WRITTEN LEVAQUIN PRESCRIPTION PROVIDED. DISCHARGE PAPERS SIGNED ON CHART. ESCORT TO RIDE VIA WHEELCHAIR. REMAINS FREE FROM INJURY.
--- NOTE | 2016-11-15 09:03 | NUR ---
Patient Name: NEEL MARIE Encounter No: [id number] : 1965 Primary Insurance: MEDICAID [facility] DC Date: Planned Disposition: Home LATE ENTRY FROM 11-14-16 AT APPROXIMATELY 1500 HOURS DCP follow-up note: CM RECEIVED TELEPHONE MESSAGE FROM PT'S DAUGHTER, REQUESTING RETURN CALL FROM CM. CM CALLED AND SPOKE TO LIBAN MARIE, . LIBAN REPORTS THAT SHE HAS SPOKEN TO JANICE CASAS [employer] WHO IS GOING TO DOWNLOAD THE CHIP FROM THE [employer] MACHINE AND SUBMIT TO MEDICAID TO SEE IF THAT WILL HELP PT GET THE MACHINE BACK. LIBAN ASKED WHAT ELSE COULD BE DONE. CM INFORMED PT THAT IF INSURANCE REFUSES TO PAY, PT HAS OPTION TO PAY [employer] FOR MACHINE OR TO ASK FOR REVIEW BY MEDICAID OR BOTH; CM OFFERED TO PROVIDE NUMBER TO MEDICAID DENIAL LINE, LIBAN REFUSED AND STATED PT CANNOT AFFORD THE MACHINE WITHOUT INSURANCE PROVIDING IT AND SHE HAS A DENIAL LETTER IN HER HAND THAT STATES THE APPEAL MUST BE IN WRITING. YONNY WILL ASSIST PT WITH THE APPEAL TO MEDICAID TO REINSTATE TRILOGY MACHINE PAYMENT. Chun Orozco, CASE MANAGEMENT
== END 2016-11-14 18:46 | disposition home or self-care (01) | DRG 189 ==
LOC: D.ER 21:45 → D.M2 23:23
PROVIDERS: Emergency Medicine; ADMIT Family Medicine
PROC: 5A09457 Assistance with Respiratory Ventilation, 24-96 Consecutive Hours, Continuous Positive Airway Pressure (ICD-10-PCS; principal; 2016-11-10)
DX: J96.22 Acute and chronic respiratory failure with hypercapnia (principal); J44.1 Chronic obstructive pulmonary disease with (acute) exacerbation; E46 Unspecified protein-calorie malnutrition; I42.9 Cardiomyopathy, unspecified; J96.21 Acute and chronic respiratory failure with hypoxia; Z91.19 Patient's noncompliance with other medical treatment and regimen; Z87.891 Personal history of nicotine dependence; E88.01 Alpha-1-antitrypsin deficiency; K21.9 Gastro-esophageal reflux disease without esophagitis; J30.9 Allergic rhinitis, unspecified; G89.29 Other chronic pain; F41.9 Anxiety disorder, unspecified; I07.1 Rheumatic tricuspid insufficiency; D64.9 Anemia, unspecified; Z68.20 Body mass index [BMI] 20.0-20.9, adult

== ENCOUNTER 2017-03-04 22:29 | Emergency (ER) | payer MEDICAID ==
[2016-11-11 12:32] VITALS: BMI 20.8
[~2017-03-04 22:29] MED LIST changes: +IPRAT-ALBUT 0.5-3 ML INH; +Levaquin PO
[2017-03-04 23:27] LABS: BASOPHILS 0.4 % (0-2); EOSINOPHILS 5.9 % (0-7); HEMATOCRIT 39.7 % (36.0-48.0); HEMOGLOBIN 12.2 g/dL (12-16); IMMATURE GRANULOCYTES 0.2 % (0-5); LYMPHOCYTES 37.3 % (15-50); MCH 28.6 pg (26.0-34.0); MCHC 30.7 g/dL (31.0-37.0); MCV 93.2 fL (80.0-100.0); MEAN PLATELET VOLUME 9.8 fL (7.4-10.4); MONOCYTES 9.5 % (2-11); NEUTROPHILS 46.7 % (40-80); PLATELET COUNT 299 10x3/uL (130-400); RBC 4.26 10x6/uL (4.00-5.40); RDW 12.7 % (11.5-14.5); WBC 5.6 10x3/uL (4.8-10.8)
[2017-03-04 23:43] LABS: ALBUMIN 3.5 g/dL (3.4-5.0); ALKALINE PHOSPHATASE 70 U/L (46-116); ALT (SGPT) 14 U/L (10-68); BILIRUBIN - TOTAL 0.45 mg/dL (0.2-1.3); CALC OSMOLALITY 285 mosm/kg (275-300); CALCIUM 9.3 mg/dL (8.5-10.1); CARBON DIOXIDE 39.7 mmol/L (21.0-32.0); CHLORIDE - SERUM 101 mmol/L (98-107); CREATININE - SERUM 0.4 mg/dL (0.6-1.3); GLUCOSE 109 mg/dL (74-106); POTASSIUM - SERUM 3.5 mmol/L (3.5-5.1); PROTEIN - SERUM 7.2 g/dL (6.4-8.2); SODIUM 144 mmol/L (136-145); UREA NITROGEN 7 mg/dL (7-18); eGFR NON AFRICAN AMERICAN > 90 mL/min (90-120)
== END 2017-03-05 01:34 | disposition home or self-care (01) ==
LOC: D.ER 22:29
PROVIDERS: Emergency Medicine
DX: J44.1 Chronic obstructive pulmonary disease with (acute) exacerbation (principal); A08.4 Viral intestinal infection, unspecified

== ENCOUNTER 2017-05-13 19:07 | Inpatient (IN) | payer MEDICAID ==
[~2017-05-13] VITALS: Ht 162.6 cm; Wt 57.5 kg
--- NOTE | ~2017-05-13 | CN ---
PATIENT NAME:NEEL MARIE MEDICAL RECORD: [id number] : 63 LOCATION:[facility].2304 ADMIT DATE: 05/13/17 ACCOUNT: [id number] CONSULTING PHYSICIAN: KRIS DELEON MD REFERRING PHYSICIAN: JOSESITO DE JESUS MD DATE OF CONSULTATION: 05/14/2017 Pulmonary Consultation REASON FOR CONSULTATION: The patient has end-stage COPD, alpha-1 antitrypsin deficiency. She follows up Dr. Sterling. HISTORY OF PRESENT ILLNESS: The patient became very weak and lethargic. Her pulse ox was 60. The patient was brought into the ER and emergently intubated. Now, the patient is orally intubated and sedated. The history was taken by talking to the ER doctor as well as reviewing the patient's note. The initial ABG most likely done after the intubation, her CO2 was 50.5, pH was 7.45 and bicarb was 35.7. REVIEW OF SYSTEMS: The details not obtainable. PAST MEDICAL HISTORY: 1. COPD of severe degree, home oxygen dependent. 2. Chronic hypoxic respiratory failure. 3. Alpha-1 antitrypsin deficiency. 4. History of recurrent pneumonia. 5. History of respiratory failure, mechanical ventilation in the past. PAST SURGICAL HISTORY: She had and back surgery. ALLERGIES: SHE IS ALLERGIC TO LORAZEPAM, ASPIRIN, FLUOXETINE, AND TERAZOSIN. PRESENT MEDICATIONS: She is on ceftriaxone, Levaquin, albuterol/ipratropium nebulizer, methylprednisolone IV. PERSONAL AND SOCIAL HISTORY: The patient is an ex-smoker. She is a nondrinker. FAMILY HISTORY: Noncontributory. PHYSICAL EXAMINATION: GENERAL: Now, the patient is orally intubated and sedated. She is on assist control mechanical ventilation. Tidal volume of 550, PEEP of 5. HEENT: Conjunctivae pink. Sclerae nonicteric. NECK: Supple. No JVD. CHEST: There are decreased breath sounds at the bases. No wheezing, no crackles. HEART: Rate and rhythm regular, normal sound, no murmur. ABDOMEN: Soft. Bowel sounds present. No hepatosplenomegaly. RECTAL: Deferred. EXTREMITIES: No cyanosis, no clubbing, no pedal edema. SKIN: Warm, normal turgor. CENTRAL NERVOUS SYSTEM: The patient is orally intubated and sedated. LABORATORY DATA AND DIAGNOSTIC STUDIES: Chest radiograph: There is hyperinflation, no acute infiltrate. CBC: WBC 10.6, hemoglobin 13.4, CONSULT REPORT [id number] NEEL MARIE hematocrit 45.7, platelet count 262. Chemistry: Sodium 134, potassium 4.6, BUN is 21, creatinine is 1, glucose 305. ABG: The pH is 7.45, pCO2 is 50.4, pO2 was 538, bicarb is 35.7. IMPRESSION: 1. Nciuh-xw-ttqqbsc hypoxic hypercapnic respiratory failure. 2. Respiratory acidosis secondary to krbgv-xe-pjfoktr hypoxic hypercapnic respiratory failure. 3. Acute exacerbation of end-stage chronic obstructive pulmonary disease. 4. Tracheobronchitis, possible pneumonitis. 5. Alpha-1 antitrypsin deficiency. RECOMMENDATIONS: 1. We will continue mechanical ventilation, adjust the setting, change to SIMV. 2. Albuterol/ipratropium nebulizer, Brovana/budesonide nebulizer, methylprednisolone IV, IV Levaquin and Rocephin. We will follow GI and DVT prophylaxis. 3. Follow labs and chest radiograph. Dr. De Jesus, thank you for involving me in the care of Ms. Marie. Critical care time is 55 minutes. TRANSINT:[id number] Voice Confirmation ID: [id number] DOCUMENT ID: [id number] KRIS DELEON MD at 1406 CC: JOSESITO DE JESUS MD [id number] DICTATION DATE: 05/14/17 1009 TANKERMAN: 05/14/17 1150 ADM IN [facility] [address] [id number]
[2017-05-13 20:17] LABS: BASOPHILS 0.1 % (0-2); EOSINOPHILS 0.5 % (0-7); HEMATOCRIT 45.7 % (36.0-48.0); HEMOGLOBIN 13.4 g/dL (12-16); IMMATURE GRANULOCYTES 0.3 % (0-5); LYMPHOCYTES 13.5 % (15-50); MCH 28.5 pg (26.0-34.0); MCHC 29.3 g/dL (31.0-37.0); MCV 97.2 fL (80.0-100.0); MEAN PLATELET VOLUME 10.6 fL (7.4-10.4); MONOCYTES 4.4 % (2-11); NEUTROPHILS 81.2 % (40-80); PLATELET COUNT 262 10x3/uL (130-400); RDW 13.7 % (11.5-14.5); WBC 10.6 10x3/uL (4.8-10.8)
[2017-05-13 20:32] LABS: APPEARANCE CLEAR (CLEAR); BILIRUBIN NEGATIVE (NEGATIVE); COLOR DK YELLOW (YELLOW); GLUCOSE NEGATIVE (NEGATIVE); KETONE NEGATIVE (NEGATIVE); NITRITE NEGATIVE (NEGATIVE); PROTEIN 2+ mg/dL (NEGATIVE); UROBILINOGEN NORMAL (NORMAL)
[2017-05-13 20:34] LABS: BACTERIA FEW /hpf (NONE SEEN)
[2017-05-13 21:09] LABS: ALBUMIN 3.2 g/dL (3.4-5.0); ALKALINE PHOSPHATASE 78 U/L (46-116); ALT (SGPT) 19 U/L (10-68); BILIRUBIN - TOTAL 0.53 mg/dL (0.2-1.3); CALCIUM 8.5 mg/dL (8.5-10.1); CHLORIDE - SERUM 96 mmol/L (98-107); CREATINE KINASE 38 UL (21-215); CREATININE - SERUM 0.5 mg/dL (0.6-1.3); POTASSIUM - SERUM 5.8 mmol/L (3.5-5.1); PROTEIN - SERUM 6.1 g/dL (6.4-8.2); SODIUM 138 mmol/L (136-145); UREA NITROGEN 10 mg/dL (7-18); eGFR NON AFRICAN AMERICAN > 90 mL/min (90-120)
[2017-05-13 21:16] LABS: CALC OSMOLALITY 278 mosm/kg (275-300); GLUCOSE 162 mg/dL (74-106)
[2017-05-13 21:17] LABS: CARBON DIOXIDE 40.4 mmol/L (21.0-32.0); TROPONIN-I < 0.017 ng/mL (0.000-0.060)
[2017-05-13 23:11] VITALS: BP 127/76
[2017-05-13 23:15] VITALS: BP 45/29
[2017-05-13 23:17] LABS: CREATINE KINASE 36 UL (21-215); TROPONIN-I 0.021 ng/mL (0.000-0.060)
[2017-05-13 23:30] VITALS: BP 90/42
[2017-05-13 23:45] VITALS: BP 126/121
[2017-05-14] VITALS (75 sets, daily range): BP systolic 41–180; BP diastolic 35–123; BMI 21.5; BMI 21.4
[2017-05-14 05:54] LABS: BASOPHILS 0.2 % (0-2); EOSINOPHILS 0 % (0-7); HEMATOCRIT 44.2 % (36.0-48.0); HEMOGLOBIN 13.7 g/dL (12-16); IMMATURE GRANULOCYTES 0.2 % (0-5); MCH 28.4 pg (26.0-34.0); MEAN PLATELET VOLUME 10.3 fL (7.4-10.4); MONOCYTES 4.3 % (2-11); NEUTROPHILS 83.3 % (40-80); PLATELET COUNT 264 10x3/uL (130-400); RBC 4.82 10x6/uL (4.00-5.40); RDW 13.7 % (11.5-14.5)
[2017-05-14 05:57] LABS: MCV 91.7 fL (80.0-100.0); WBC 4.9 10x3/uL (4.8-10.8)
[2017-05-14 06:22] LABS: CALCIUM 8.8 mg/dL (8.5-10.1); CHLORIDE - SERUM 96 mmol/L (98-107); CKMB 1.5 U/L (0.0-3.6); CREATINE KINASE 52 UL (21-215); MAGNESIUM - SERUM 1.6 mg/dL (1.8-2.4); SODIUM 134 mmol/L (136-145)
[2017-05-14 06:25] LABS: CALC OSMOLALITY 281 mosm/kg (275-300); GLUCOSE 305 mg/dL (74-106); UREA NITROGEN 21 mg/dL (7-18)
[2017-05-14 06:26] LABS: CARBON DIOXIDE 28.2 mmol/L (21.0-32.0); POTASSIUM - SERUM 4.6 mmol/L (3.5-5.1); TROPONIN-I 0.298 ng/mL (0.000-0.060); eGFR NON AFRICAN AMERICAN 62 mL/min (90-120)
[2017-05-14 11:05] LABS: CKMB 2.3 U/L (0.0-3.6); CREATINE KINASE 102 UL (21-215)
[2017-05-14 11:07] LABS: TROPONIN-I 0.781 ng/mL (0.000-0.060)
[2017-05-15] VITALS (22 sets, daily range): BP systolic 93–134; BP diastolic 58–98; Ht 162.6 cm; Wt 57.5 kg
[2017-05-15 05:13] LABS: BASOPHILS 0 % (0-2); EOSINOPHILS 0 % (0-7); HEMATOCRIT 39.9 % (36.0-48.0); HEMOGLOBIN 12.6 g/dL (12-16); IMMATURE GRANULOCYTES 0.1 % (0-5); LYMPHOCYTES 6.1 % (15-50); MCH 28.3 pg (26.0-34.0); MCHC 31.6 g/dL (31.0-37.0); MEAN PLATELET VOLUME 10.4 fL (7.4-10.4); MONOCYTES 8.3 % (2-11); NEUTROPHILS 85.5 % (40-80); PLATELET COUNT 216 10x3/uL (130-400); RBC 4.45 10x6/uL (4.00-5.40); RDW 14.2 % (11.5-14.5)
[2017-05-15 05:24] LABS: MCV 89.7 fL (80.0-100.0); WBC 7.2 10x3/uL (4.8-10.8)
[2017-05-15 05:39] LABS: CARBON DIOXIDE 32.3 mmol/L (21.0-32.0); CHLORIDE - SERUM 99 mmol/L (98-107); CREATININE - SERUM 0.8 mg/dL (0.6-1.3); SODIUM 140 mmol/L (136-145); UREA NITROGEN 26 mg/dL (7-18); eGFR NON AFRICAN AMERICAN 80 mL/min (90-120)
[2017-05-15 05:53] LABS: CALC OSMOLALITY 286 mosm/kg (275-300); GLUCOSE 150 mg/dL (74-106); MAGNESIUM - SERUM 2.2 mg/dL (1.8-2.4)
[2017-05-16] VITALS (24 sets, daily range): BP systolic 94–144; BP diastolic 81–98
[2017-05-16 06:03] LABS: BASOPHILS 0.1 % (0-2); EOSINOPHILS 0 % (0-7); HEMATOCRIT 37.7 % (36.0-48.0); HEMOGLOBIN 11.9 g/dL (12-16); IMMATURE GRANULOCYTES 0.4 % (0-5); MCH 28.4 pg (26.0-34.0); MCHC 31.6 g/dL (31.0-37.0); MEAN PLATELET VOLUME 11.1 fL (7.4-10.4); MONOCYTES 7.6 % (2-11); NEUTROPHILS 86.9 % (40-80); PLATELET COUNT 244 10x3/uL (130-400); RBC 4.19 10x6/uL (4.00-5.40)
[2017-05-16 06:13] LABS: WBC 9.9 10x3/uL (4.8-10.8)
[2017-05-16 06:24] LABS: CALC OSMOLALITY 282 mosm/kg (275-300); CALCIUM 8.5 mg/dL (8.5-10.1); CARBON DIOXIDE 30.8 mmol/L (21.0-32.0); CHLORIDE - SERUM 102 mmol/L (98-107); GLUCOSE 148 mg/dL (74-106); MAGNESIUM - SERUM 2.4 mg/dL (1.8-2.4); SODIUM 138 mmol/L (136-145); UREA NITROGEN 23 mg/dL (7-18)
[2017-05-16 06:25] LABS: CREATININE - SERUM 0.5 mg/dL (0.6-1.3)
[2017-05-16 06:26] LABS: POTASSIUM - SERUM 4.4 mmol/L (3.5-5.1); eGFR NON AFRICAN AMERICAN > 90 mL/min (90-120)
[2017-05-17] VITALS (24 sets, daily range): BP systolic 102–150; BP diastolic 80–99
[2017-05-17 04:25] LABS: BASOPHILS 0.1 % (0-2); EOSINOPHILS 0 % (0-7); HEMATOCRIT 40.7 % (36.0-48.0); HEMOGLOBIN 12.9 g/dL (12-16); LYMPHOCYTES 5.1 % (15-50); MCH 28.8 pg (26.0-34.0); MCHC 31.7 g/dL (31.0-37.0); MCV 90.8 fL (80.0-100.0); MEAN PLATELET VOLUME 11.2 fL (7.4-10.4); MONOCYTES 8.4 % (2-11); NEUTROPHILS 85.4 % (40-80); PLATELET COUNT 273 10x3/uL (130-400); RBC 4.48 10x6/uL (4.00-5.40); RDW 15.1 % (11.5-14.5)
[2017-05-17 04:42] LABS: CALC OSMOLALITY 284 mosm/kg (275-300); CALCIUM 8.8 mg/dL (8.5-10.1); CARBON DIOXIDE 29.1 mmol/L (21.0-32.0); CHLORIDE - SERUM 100 mmol/L (98-107); CREATININE - SERUM 0.6 mg/dL (0.6-1.3); GLUCOSE 157 mg/dL (74-106); MAGNESIUM - SERUM 2.4 mg/dL (1.8-2.4); SODIUM 137 mmol/L (136-145); eGFR NON AFRICAN AMERICAN > 90 mL/min (90-120)
[2017-05-17 04:53] LABS: UREA NITROGEN 35 mg/dL (7-18)
[2017-05-18] VITALS (21 sets, daily range): BP systolic 112–162; BP diastolic 77–99
[2017-05-18 04:58] LABS: BASOPHILS 0 % (0-2); EOSINOPHILS 0 % (0-7); HEMATOCRIT 37.9 % (36.0-48.0); HEMOGLOBIN 11.6 g/dL (12-16); IMMATURE GRANULOCYTES 1.1 % (0-5); LYMPHOCYTES 7.8 % (15-50); MCH 28.2 pg (26.0-34.0); MCHC 30.6 g/dL (31.0-37.0); MCV 92.2 fL (80.0-100.0); MEAN PLATELET VOLUME 11.1 fL (7.4-10.4); MONOCYTES 7.3 % (2-11); NEUTROPHILS 83.8 % (40-80); PLATELET COUNT 244 10x3/uL (130-400); RBC 4.11 10x6/uL (4.00-5.40); RDW 14.7 % (11.5-14.5); WBC 12.7 10x3/uL (4.8-10.8)
[2017-05-18 05:06] LABS: CALCIUM 8.4 mg/dL (8.5-10.1); CHLORIDE - SERUM 104 mmol/L (98-107); SODIUM 143 mmol/L (136-145); UREA NITROGEN 28 mg/dL (7-18)
[2017-05-18 05:14] LABS: CALC OSMOLALITY 291 mosm/kg (275-300); CARBON DIOXIDE 36.6 mmol/L (21.0-32.0); CREATININE - SERUM 0.4 mg/dL (0.6-1.3); GLUCOSE 109 mg/dL (74-106); POTASSIUM - SERUM 3.9 mmol/L (3.5-5.1); eGFR NON AFRICAN AMERICAN > 90 mL/min (90-120)
[2017-05-19] VITALS (24 sets, daily range): BP systolic 95–164; BP diastolic 59–102
[2017-05-19 04:52] LABS: BASOPHILS 0.1 % (0-2); EOSINOPHILS 0 % (0-7); HEMATOCRIT 36.2 % (36.0-48.0); HEMOGLOBIN 11.2 g/dL (12-16); IMMATURE GRANULOCYTES 0.9 % (0-5); LYMPHOCYTES 6.7 % (15-50); MCH 28.2 pg (26.0-34.0); MCHC 30.9 g/dL (31.0-37.0); MCV 91.2 fL (80.0-100.0); MEAN PLATELET VOLUME 10.7 fL (7.4-10.4); MONOCYTES 4.4 % (2-11); NEUTROPHILS 87.9 % (40-80); PLATELET COUNT 241 10x3/uL (130-400); RBC 3.97 10x6/uL (4.00-5.40); RDW 14.3 % (11.5-14.5); WBC 9.9 10x3/uL (4.8-10.8)
[2017-05-19 06:07] LABS: CALC OSMOLALITY 286 mosm/kg (275-300); CALCIUM 8.8 mg/dL (8.5-10.1); CARBON DIOXIDE 34.7 mmol/L (21.0-32.0); CHLORIDE - SERUM 99 mmol/L (98-107); CREATININE - SERUM 0.4 mg/dL (0.6-1.3); GLUCOSE 105 mg/dL (74-106); POTASSIUM - SERUM 3.8 mmol/L (3.5-5.1); SODIUM 142 mmol/L (136-145); UREA NITROGEN 23 mg/dL (7-18); eGFR NON AFRICAN AMERICAN > 90 mL/min (90-120)
[2017-05-20] VITALS (24 sets, daily range): BP systolic 109–157; BP diastolic 82–101
[2017-05-20 05:12] LABS: BASOPHILS 0 % (0-2); EOSINOPHILS 0 % (0-7); HEMATOCRIT 38.2 % (36.0-48.0); HEMOGLOBIN 11.9 g/dL (12-16); IMMATURE GRANULOCYTES 0.7 % (0-5); LYMPHOCYTES 8.5 % (15-50); MCH 28.5 pg (26.0-34.0); MCHC 31.2 g/dL (31.0-37.0); MCV 91.6 fL (80.0-100.0); MEAN PLATELET VOLUME 11.3 fL (7.4-10.4); MONOCYTES 7.2 % (2-11); NEUTROPHILS 83.6 % (40-80); PLATELET COUNT 218 10x3/uL (130-400); RBC 4.17 10x6/uL (4.00-5.40); RDW 14.3 % (11.5-14.5); WBC 9.6 10x3/uL (4.8-10.8)
[2017-05-20 05:45] LABS: ALBUMIN 3.4 g/dL (3.4-5.0); ALKALINE PHOSPHATASE 102 U/L (46-116); ALT (SGPT) 102 U/L (10-68); BILIRUBIN - TOTAL 0.55 mg/dL (0.2-1.3); CALC OSMOLALITY 284 mosm/kg (275-300); CARBON DIOXIDE 37.1 mmol/L (21.0-32.0); CHLORIDE - SERUM 98 mmol/L (98-107); CREATININE - SERUM 0.3 mg/dL (0.6-1.3); GLUCOSE 95 mg/dL (74-106); MAGNESIUM - SERUM 1.9 mg/dL (1.8-2.4); PHOSPHOROUS 3.9 mg/dL (2.5-4.9); POTASSIUM - SERUM 3.7 mmol/L (3.5-5.1); PROTEIN - SERUM 6.2 g/dL (6.4-8.2); SODIUM 142 mmol/L (136-145); THYROID STIMULATING HORMONE 0.72 uIU/mL (0.36-3.74); eGFR NON AFRICAN AMERICAN > 90 mL/min (90-120)
[2017-05-20 05:51] LABS: UREA NITROGEN 17 mg/dL (7-18)
[2017-05-21] VITALS (24 sets, daily range): BP systolic 90–153; BP diastolic 59–97
[2017-05-21 03:41] LABS: BASOPHILS 0 % (0-2); EOSINOPHILS 0 % (0-7); HEMATOCRIT 37.1 % (36.0-48.0); HEMOGLOBIN 11.4 g/dL (12-16); IMMATURE GRANULOCYTES 0.7 % (0-5); LYMPHOCYTES 7.4 % (15-50); MCH 28.6 pg (26.0-34.0); MCHC 30.7 g/dL (31.0-37.0); MCV 93.2 fL (80.0-100.0); MEAN PLATELET VOLUME 9.7 fL (7.4-10.4); MONOCYTES 7.4 % (2-11); NEUTROPHILS 84.5 % (40-80); PLATELET COUNT 239 10x3/uL (130-400); RBC 3.98 10x6/uL (4.00-5.40); RDW 14.1 % (11.5-14.5); WBC 9.1 10x3/uL (4.8-10.8)
[2017-05-21 03:53] LABS: CALC OSMOLALITY 285 mosm/kg (275-300); CALCIUM 8.7 mg/dL (8.5-10.1); CHLORIDE - SERUM 100 mmol/L (98-107); CREATININE - SERUM 0.4 mg/dL (0.6-1.3); GLUCOSE 123 mg/dL (74-106); POTASSIUM - SERUM 3.3 mmol/L (3.5-5.1); SODIUM 143 mmol/L (136-145); UREA NITROGEN 12 mg/dL (7-18); eGFR NON AFRICAN AMERICAN > 90 mL/min (90-120)
[2017-05-21 03:54] LABS: CARBON DIOXIDE 43.8 mmol/L (21.0-32.0)
[2017-05-22] VITALS (24 sets, daily range): BP systolic 90–159; BP diastolic 66–101
[2017-05-22 05:21] LABS: BASOPHILS 0 % (0-2); EOSINOPHILS 0 % (0-7); HEMATOCRIT 44.4 % (36.0-48.0); HEMOGLOBIN 13.1 g/dL (12-16); LYMPHOCYTES 5.2 % (15-50); MCH 28.4 pg (26.0-34.0); MCHC 29.5 g/dL (31.0-37.0); MONOCYTES 1.3 % (2-11); NEUTROPHILS 92.5 % (40-80); RBC 4.62 10x6/uL (4.00-5.40)
[2017-05-22 05:27] LABS: MCV 96.1 fL (80.0-100.0); PLATELET COUNT 308 10x3/uL (130-400)
[2017-05-22 05:31] LABS: ALBUMIN 3.9 g/dL (3.4-5.0); ALKALINE PHOSPHATASE 104 U/L (46-116); ALT (SGPT) 84 U/L (10-68); BILIRUBIN - TOTAL 0.57 mg/dL (0.2-1.3); CALC OSMOLALITY 285 mosm/kg (275-300); CALCIUM 9.7 mg/dL (8.5-10.1); CHLORIDE - SERUM 99 mmol/L (98-107); CREATININE - SERUM 0.4 mg/dL (0.6-1.3); GLUCOSE 156 mg/dL (74-106); MAGNESIUM - SERUM 2.3 mg/dL (1.8-2.4); PHOSPHOROUS 4.4 mg/dL (2.5-4.9); PROTEIN - SERUM 6.8 g/dL (6.4-8.2); SODIUM 142 mmol/L (136-145); UREA NITROGEN 12 mg/dL (7-18); eGFR NON AFRICAN AMERICAN > 90 mL/min (90-120)
[2017-05-22 05:34] LABS: POTASSIUM - SERUM 4.4 mmol/L (3.5-5.1)
[2017-05-22 05:35] LABS: CARBON DIOXIDE 41.1 mmol/L (21.0-32.0)
[2017-05-23] VITALS (24 sets, daily range): BP systolic 73–141; BP diastolic 54–96
[2017-05-23 04:31] LABS: BASOPHILS 0 % (0-2); EOSINOPHILS 0 % (0-7); HEMATOCRIT 41.4 % (36.0-48.0); HEMOGLOBIN 12.6 g/dL (12-16); IMMATURE GRANULOCYTES 0.4 % (0-5); LYMPHOCYTES 4.3 % (15-50); MCH 28.3 pg (26.0-34.0); MCHC 30.4 g/dL (31.0-37.0); MEAN PLATELET VOLUME 9.8 fL (7.4-10.4); MONOCYTES 2.6 % (2-11); NEUTROPHILS 92.7 % (40-80); PLATELET COUNT 322 10x3/uL (130-400); RBC 4.46 10x6/uL (4.00-5.40); RDW 14.1 % (11.5-14.5); WBC 7.8 10x3/uL (4.8-10.8)
[2017-05-23 04:45] LABS: MCV 92.8 fL (80.0-100.0)
[2017-05-23 05:10] LABS: CALCIUM 9.7 mg/dL (8.5-10.1); CARBON DIOXIDE 33.8 mmol/L (21.0-32.0); CHLORIDE - SERUM 100 mmol/L (98-107); CREATININE - SERUM 0.4 mg/dL (0.6-1.3); GLUCOSE 137 mg/dL (74-106); PHOSPHOROUS 3.5 mg/dL (2.5-4.9); SODIUM 141 mmol/L (136-145); THYROID STIMULATING HORMONE 0.18 uIU/mL (0.36-3.74); eGFR NON AFRICAN AMERICAN > 90 mL/min (90-120)
[2017-05-23 05:21] LABS: CALC OSMOLALITY 284 mosm/kg (275-300); POTASSIUM - SERUM 3.6 mmol/L (3.5-5.1); UREA NITROGEN 19 mg/dL (7-18)
[2017-05-24] VITALS (22 sets, daily range): BP systolic 76–134; BP diastolic 55–686
[2017-05-24 05:01] LABS: CALCIUM 9.5 mg/dL (8.5-10.1); CARBON DIOXIDE 38.2 mmol/L (21.0-32.0); CHLORIDE - SERUM 101 mmol/L (98-107); SODIUM 144 mmol/L (136-145); UREA NITROGEN 22 mg/dL (7-18)
[2017-05-24 05:03] LABS: CALC OSMOLALITY 294 mosm/kg (275-300); CREATININE - SERUM 0.6 mg/dL (0.6-1.3); GLUCOSE 187 mg/dL (74-106); eGFR NON AFRICAN AMERICAN > 90 mL/min (90-120)
[2017-05-25] VITALS (23 sets, daily range): BP systolic 90–153; BP diastolic 66–95
[2017-05-26] VITALS (24 sets, daily range): BP systolic 84–136; BP diastolic 63–92
[2017-05-26 05:54] LABS: BASOPHILS 0 % (0-2); EOSINOPHILS 0 % (0-7); HEMATOCRIT 40.3 % (36.0-48.0); HEMOGLOBIN 12.3 g/dL (12-16); IMMATURE GRANULOCYTES 0.3 % (0-5); LYMPHOCYTES 2.8 % (15-50); MCH 28.6 pg (26.0-34.0); MCHC 30.5 g/dL (31.0-37.0); MCV 93.7 fL (80.0-100.0); MEAN PLATELET VOLUME 10.2 fL (7.4-10.4); NEUTROPHILS 94.9 % (40-80); PLATELET COUNT 287 10x3/uL (130-400); RDW 14.5 % (11.5-14.5)
[2017-05-26 06:08] LABS: CALC OSMOLALITY 287 mosm/kg (275-300); CALCIUM 9.1 mg/dL (8.5-10.1); CARBON DIOXIDE 38.9 mmol/L (21.0-32.0); CHLORIDE - SERUM 99 mmol/L (98-107); CREATININE - SERUM 0.5 mg/dL (0.6-1.3); GLUCOSE 158 mg/dL (74-106); PHOSPHOROUS 3.4 mg/dL (2.5-4.9); POTASSIUM - SERUM 4.3 mmol/L (3.5-5.1); SODIUM 141 mmol/L (136-145); UREA NITROGEN 23 mg/dL (7-18); eGFR NON AFRICAN AMERICAN > 90 mL/min (90-120)
[2017-05-27] VITALS (14 sets, daily range): BP systolic 88–133; BP diastolic 60–88
[2017-05-27 05:29] LABS: BASOPHILS 0 % (0-2); EOSINOPHILS 0 % (0-7); HEMATOCRIT 38.5 % (36.0-48.0); HEMOGLOBIN 11.9 g/dL (12-16); IMMATURE GRANULOCYTES 0.3 % (0-5); LYMPHOCYTES 2.5 % (15-50); MCH 28.7 pg (26.0-34.0); MCHC 30.9 g/dL (31.0-37.0); MCV 92.8 fL (80.0-100.0); MEAN PLATELET VOLUME 9.8 fL (7.4-10.4); NEUTROPHILS 95.2 % (40-80); PLATELET COUNT 259 10x3/uL (130-400); RBC 4.15 10x6/uL (4.00-5.40); RDW 14.6 % (11.5-14.5); WBC 7.1 10x3/uL (4.8-10.8)
[2017-05-27 05:57] LABS: ALBUMIN 3.2 g/dL (3.4-5.0); ALKALINE PHOSPHATASE 60 U/L (46-116); ALT (SGPT) 89 U/L (10-68); CALC OSMOLALITY 282 mosm/kg (275-300); CALCIUM 8.9 mg/dL (8.5-10.1); CARBON DIOXIDE 38.5 mmol/L (21.0-32.0); CHLORIDE - SERUM 99 mmol/L (98-107); GLUCOSE 136 mg/dL (74-106); POTASSIUM - SERUM 4.2 mmol/L (3.5-5.1); PROTEIN - SERUM 5.6 g/dL (6.4-8.2); SODIUM 140 mmol/L (136-145); UREA NITROGEN 19 mg/dL (7-18)
[2017-05-27 05:58] LABS: CREATININE - SERUM 0.3 mg/dL (0.6-1.3); eGFR NON AFRICAN AMERICAN > 90 mL/min (90-120)
[2017-05-28] VITALS: BP 90/59
[2017-05-28 04:00] VITALS: BP 100/65
[2017-05-28 08:47] VITALS: BP 142/73
[2017-05-28 18:42] VITALS: BP 130/66
[2017-05-28 20:00] VITALS: BP 125/74
[2017-05-29] VITALS: BP 124/81
[2017-05-29 04:00] VITALS: BP 88/61
[2017-05-29 08:21] VITALS: BP 126/71
[2017-05-29 15:52] VITALS: BP 102/61
[2017-05-30] VITALS: BP 94/64
[2017-05-30 05:40] LABS: CALC OSMOLALITY 272 mosm/kg (275-300); CALCIUM 8.5 mg/dL (8.5-10.1); CARBON DIOXIDE 35.2 mmol/L (21.0-32.0); CHLORIDE - SERUM 100 mmol/L (98-107); CREATININE - SERUM 0.5 mg/dL (0.6-1.3); POTASSIUM - SERUM 3.8 mmol/L (3.5-5.1); SODIUM 136 mmol/L (136-145); UREA NITROGEN 18 mg/dL (7-18); eGFR NON AFRICAN AMERICAN > 90 mL/min (90-120)
[2017-05-30 05:41] LABS: GLUCOSE 87 mg/dL (74-106)
[2017-05-30] MEDS ORDERED: ATROVENT 0.02%2.5 ML UPD (08:04)
[2017-05-30] MEDS ORDERED: XOPENEX 0.0.63 MG/3 UPD (08:04)
[2017-05-30] MEDS ORDERED: CARDIZEM60 MG PO (08:05)
[2017-05-30] MEDS ORDERED: PREDNISONE20 MG PO (08:08)
[2017-05-30 08:45] VITALS: BP 114/66
== END 2017-05-30 14:06 | disposition home health service (06) | DRG 871 ==
LOC: D.ER 19:07 → D.ICU 22:42 → D.MS 05-27 21:36
PROVIDERS: Family Medicine; Internal Medicine Pulmonary Disease
PROC: 0BH17EZ Insertion of Endotracheal Airway into Trachea, Via Natural or Artificial Opening (ICD-10-PCS; principal; 2017-05-14)
PROC: 5A1945Z Respiratory Ventilation, 24-96 Consecutive Hours (ICD-10-PCS; 2017-05-14)
PROC: 5A09557 Assistance with Respiratory Ventilation, Greater than 96 Consecutive Hours, Continuous Positive Airway Pressure (ICD-10-PCS; 2017-05-17)
DX: A41.9 Sepsis, unspecified organism (principal); J96.21 Acute and chronic respiratory failure with hypoxia; J18.9 Pneumonia, unspecified organism; J96.22 Acute and chronic respiratory failure with hypercapnia; J44.1 Chronic obstructive pulmonary disease with (acute) exacerbation; E87.2 Acidosis; G72.81 Critical illness myopathy; E88.01 Alpha-1-antitrypsin deficiency; R00.0 Tachycardia, unspecified; Z78.1 Physical restraint status; E87.6 Hypokalemia; K21.9 Gastro-esophageal reflux disease without esophagitis; F41.9 Anxiety disorder, unspecified; D64.9 Anemia, unspecified; G89.29 Other chronic pain

== ENCOUNTER 2017-06-14 22:45 | Inpatient (IN) | payer MEDICAID ==
[~2017-06-14] VITALS: Ht 162.6 cm; Wt 59.1 kg
--- NOTE | ~2017-06-14 | HP ---
PATIENT: NEEL MARIE MEDICAL RECORD: [id number] ACCOUNT: [id number] LOCATION:[facility] D.2305 : [birth year] ADMISSION DATE: 06/15/17 HISTORY AND PHYSICAL EXAMINATION HISTORY OF PRESENT ILLNESS: Ms. Helm is a 51-year-old white female well known to me, whose primary care physician is Dr. Reed in [place]. She presents to the Emergency Room with increasing shortness of breath. Her nebulizer machine broke down yesterday and family has not been able to get it replaced or repaired, worsening shortness of breath. She is now being admitted to the ICU and is on BiPAP. She has a history of alpha-1 antitrypsin deficiency and severe COPD. She has had multiple hospitalizations in the past for pneumonia, COPD exacerbations, and has required mechanical ventilation on numerous times in the past. She is nonverbal right now, but is on BiPAP. Her vital signs seem stable. PAST MEDICAL HISTORY: Her other medical problems in the past include chronic pain, GERD, arrhythmia, DJD, anxiety, depression. PAST SURGICAL HISTORY: Previous surgeries include and back surgery. ALLERGIES: To LORAZEPAM, ASPIRIN, IBUPROFEN, FLUOXETINE, and TRAZODONE. HOME MEDICATIONS: List at this time shows Xopenex, DuoNeb, diltiazem 60 t.i.d., hydrocodone, clonazepam, budesonide, fluticasone, ranitidine, and recently finished a tapering dose of prednisone. It is unclear how compliant she has been with these medications at home. FAMILY HISTORY: Unavailable at this time. SOCIAL HISTORY: She is a past smoker. REVIEW OF SYSTEMS: The patient is nonverbal right now, on BiPAP. PHYSICAL EXAMINATION: HEENT: Head is normocephalic, sclerae nonicteric. HEART: Slightly tachycardic. LUNGS: With diminished breath sounds bilaterally with some coarse adventitious sounds. ABDOMEN: Soft. LOWER EXTREMITIES: Little puffy. NEUROLOGIC: Incomplete. IMPRESSION: Chronic obstructive pulmonary disease exacerbation, toymv-bw-riggwcu renal failure, alpha-1 antitrypsin deficiency, chronic pain, chronic anxiety. PLAN: Admit to ICU, BiPAP for now. Discussed with Dr. Preciado. We will see how she does over the next 24 hours. Pulmonary toilet, steroids. TRANSINT:[id number] Voice Confirmation ID: [id number] DOCUMENT ID: [id number] HISTORY AND PHYSICAL [id number] NEEL MARIE MATTHEW DO at 1203 CC: [id number] DICTATION DATE: 06/15/17 1104 DIRECTOR DERMATOLOGY: 06/15/17 1137 ADM IN [facility] [address] [id number]
[~2017-06-14 22:45] MED LIST changes: +ATROVENT 0.02%2.5 ML UPD; +XOPENEX 0.0.63 MG/3 UPD
[2017-06-14 23:04] LABS: BASOPHILS 0.2 % (0-2); EOSINOPHILS 2.4 % (0-7); HEMOGLOBIN 11.4 g/dL (12-16); IMMATURE GRANULOCYTES 0.5 % (0-5); LYMPHOCYTES 11.6 % (15-50); MCH 28.4 pg (26.0-34.0); MCV 94.8 fL (80.0-100.0); MEAN PLATELET VOLUME 9.4 fL (7.4-10.4); MONOCYTES 11.6 % (2-11); NEUTROPHILS 73.7 % (40-80); PLATELET COUNT 235 10x3/uL (130-400); RBC 4.01 10x6/uL (4.00-5.40); RDW 13.6 % (11.5-14.5); WBC 6.7 10x3/uL (4.8-10.8)
[2017-06-14 23:25] LABS: ALKALINE PHOSPHATASE 93 U/L (46-116); ALT (SGPT) 39 U/L (10-68); BILIRUBIN - TOTAL 0.35 mg/dL (0.2-1.3); CALCIUM 8.8 mg/dL (8.5-10.1); CHLORIDE - SERUM 89 mmol/L (98-107); CREATININE - SERUM 0.3 mg/dL (0.6-1.3); POTASSIUM - SERUM 3.3 mmol/L (3.5-5.1); PROTEIN - SERUM 6.7 g/dL (6.4-8.2); SODIUM 136 mmol/L (136-145); UREA NITROGEN 6 mg/dL (7-18); eGFR NON AFRICAN AMERICAN > 90 mL/min (90-120)
[2017-06-14 23:30] LABS: CALC OSMOLALITY 271 mosm/kg (275-300); CARBON DIOXIDE 45.5 mmol/L (21.0-32.0); GLUCOSE 138 mg/dL (74-106)
[2017-06-14 23:33] LABS: CREATINE KINASE 17 UL (21-215); MAGNESIUM - SERUM 1.9 mg/dL (1.8-2.4); PRO BNP 120 pg/mL (0-125)
[2017-06-14 23:34] LABS: TROPONIN-I < 0.017 ng/mL (0.000-0.060)
[2017-06-15] VITALS (44 sets, daily range): BP systolic 88–147; BP diastolic 64–90; Ht 162.6 cm; Wt 59.1 kg
[2017-06-16] VITALS (24 sets, daily range): BP systolic 88–132; BP diastolic 64–85
[2017-06-16 04:21] LABS: BASOPHILS 0 % (0-2); EOSINOPHILS 0 % (0-7); HEMATOCRIT 32.7 % (36.0-48.0); HEMOGLOBIN 9.7 g/dL (12-16); LYMPHOCYTES 11.3 % (15-50); MCH 27.6 pg (26.0-34.0); MCHC 29.7 g/dL (31.0-37.0); MCV 92.9 fL (80.0-100.0); MEAN PLATELET VOLUME 9.5 fL (7.4-10.4); MONOCYTES 2.6 % (2-11); NEUTROPHILS 86.1 % (40-80); PLATELET COUNT 264 10x3/uL (130-400); RBC 3.52 10x6/uL (4.00-5.40)
[2017-06-16 04:27] LABS: WBC 2.7 10x3/uL (4.8-10.8)
[2017-06-16 04:40] LABS: ALBUMIN 2.4 g/dL (3.4-5.0); ALKALINE PHOSPHATASE 84 U/L (46-116); ALT (SGPT) 46 U/L (10-68); BILIRUBIN - TOTAL 0.35 mg/dL (0.2-1.3); CALCIUM 8.8 mg/dL (8.5-10.1); CHLORIDE - SERUM 97 mmol/L (98-107); SODIUM 140 mmol/L (136-145)
[2017-06-16 04:44] LABS: CALC OSMOLALITY 282 mosm/kg (275-300); CREATININE - SERUM 0.6 mg/dL (0.6-1.3); GLUCOSE 192 mg/dL (74-106); POTASSIUM - SERUM 4.5 mmol/L (3.5-5.1); UREA NITROGEN 11 mg/dL (7-18); eGFR NON AFRICAN AMERICAN > 90 mL/min (90-120)
[2017-06-16 04:45] LABS: CARBON DIOXIDE 40.1 mmol/L (21.0-32.0)
[2017-06-17] VITALS (22 sets, daily range): BP systolic 91–138; BP diastolic 56–92
[2017-06-17 04:35] LABS: BASOPHILS 0 % (0-2); EOSINOPHILS 0 % (0-7); HEMOGLOBIN 9.2 g/dL (12-16); IMMATURE GRANULOCYTES 0.5 % (0-5); LYMPHOCYTES 6.5 % (15-50); MCH 28.1 pg (26.0-34.0); MCHC 30.7 g/dL (31.0-37.0); MCV 91.7 fL (80.0-100.0); MEAN PLATELET VOLUME 9.3 fL (7.4-10.4); MONOCYTES 3.4 % (2-11); NEUTROPHILS 89.6 % (40-80); PLATELET COUNT 303 10x3/uL (130-400); RBC 3.27 10x6/uL (4.00-5.40); RDW 14.8 % (11.5-14.5)
[2017-06-17 04:42] LABS: WBC 4.1 10x3/uL (4.8-10.8)
[2017-06-17 04:56] LABS: ALBUMIN 2.4 g/dL (3.4-5.0); ALKALINE PHOSPHATASE 76 U/L (46-116); ALT (SGPT) 53 U/L (10-68); BILIRUBIN - TOTAL 0.25 mg/dL (0.2-1.3); CALC OSMOLALITY 287 mosm/kg (275-300); CALCIUM 8.6 mg/dL (8.5-10.1); CARBON DIOXIDE 38.5 mmol/L (21.0-32.0); CHLORIDE - SERUM 101 mmol/L (98-107); CREATININE - SERUM 0.5 mg/dL (0.6-1.3); GLUCOSE 155 mg/dL (74-106); POTASSIUM - SERUM 4.5 mmol/L (3.5-5.1); PROTEIN - SERUM 5.5 g/dL (6.4-8.2); SODIUM 142 mmol/L (136-145); eGFR NON AFRICAN AMERICAN > 90 mL/min (90-120)
[2017-06-17 04:57] LABS: UREA NITROGEN 18 mg/dL (7-18)
[2017-06-17 11:23] LABS: CREATINE KINASE 80 UL (21-215)
[2017-06-17 11:24] LABS: TROPONIN-I < 0.017 ng/mL (0.000-0.060)
[2017-06-17 17:16] LABS: CKMB 0.9 U/L (0.0-3.6); CREATINE KINASE 22 UL (21-215); TROPONIN-I < 0.017 ng/mL (0.000-0.060)
[2017-06-17 23:14] LABS: CKMB 0.9 U/L (0.0-3.6); CREATINE KINASE 18 UL (21-215)
[2017-06-18] VITALS (20 sets, daily range): BP systolic 95–150; BP diastolic 63–94
[2017-06-18 05:30] LABS: BASOPHILS 0 % (0-2); EOSINOPHILS 0 % (0-7); HEMATOCRIT 32.1 % (36.0-48.0); HEMOGLOBIN 9.6 g/dL (12-16); LYMPHOCYTES 7.8 % (15-50); MCH 27.8 pg (26.0-34.0); MCHC 29.9 g/dL (31.0-37.0); MEAN PLATELET VOLUME 9.7 fL (7.4-10.4); NEUTROPHILS 85.2 % (40-80); RBC 3.45 10x6/uL (4.00-5.40); RDW 15.2 % (11.5-14.5); WBC 4.6 10x3/uL (4.8-10.8)
[2017-06-18 05:36] LABS: PLATELET COUNT 382 10x3/uL (130-400)
[2017-06-18 05:56] LABS: ALBUMIN 2.6 g/dL (3.4-5.0); ALKALINE PHOSPHATASE 80 U/L (46-116); ALT (SGPT) 52 U/L (10-68); CALC OSMOLALITY 288 mosm/kg (275-300); CALCIUM 8.5 mg/dL (8.5-10.1); CARBON DIOXIDE 37.6 mmol/L (21.0-32.0); CHLORIDE - SERUM 102 mmol/L (98-107); CREATININE - SERUM 0.5 mg/dL (0.6-1.3); GLUCOSE 130 mg/dL (74-106); POTASSIUM - SERUM 4.5 mmol/L (3.5-5.1); PROTEIN - SERUM 5.7 g/dL (6.4-8.2); SODIUM 143 mmol/L (136-145); UREA NITROGEN 17 mg/dL (7-18); eGFR NON AFRICAN AMERICAN > 90 mL/min (90-120)
[2017-06-19 04:00] VITALS: BP 133/82
[2017-06-19 05:18] LABS: BASOPHILS 0 % (0-2); EOSINOPHILS 0 % (0-7); HEMATOCRIT 33.4 % (36.0-48.0); HEMOGLOBIN 9.8 g/dL (12-16); IMMATURE GRANULOCYTES 1.7 % (0-5); LYMPHOCYTES 9.1 % (15-50); MCH 27.7 pg (26.0-34.0); MCHC 29.3 g/dL (31.0-37.0); MCV 94.4 fL (80.0-100.0); MEAN PLATELET VOLUME 9.6 fL (7.4-10.4); MONOCYTES 8.7 % (2-11); NEUTROPHILS 80.5 % (40-80); PLATELET COUNT 390 10x3/uL (130-400); RBC 3.54 10x6/uL (4.00-5.40); WBC 5.2 10x3/uL (4.8-10.8)
[2017-06-19 05:44] LABS: ALBUMIN 2.6 g/dL (3.4-5.0); ALKALINE PHOSPHATASE 77 U/L (46-116); ALT (SGPT) 58 U/L (10-68); BILIRUBIN - TOTAL 0.25 mg/dL (0.2-1.3); CALC OSMOLALITY 285 mosm/kg (275-300); CALCIUM 8.9 mg/dL (8.5-10.1); CARBON DIOXIDE 39.4 mmol/L (21.0-32.0); CHLORIDE - SERUM 101 mmol/L (98-107); CREATININE - SERUM 0.5 mg/dL (0.6-1.3); GLUCOSE 119 mg/dL (74-106); POTASSIUM - SERUM 4.4 mmol/L (3.5-5.1); PROTEIN - SERUM 5.7 g/dL (6.4-8.2); SODIUM 143 mmol/L (136-145); eGFR NON AFRICAN AMERICAN > 90 mL/min (90-120)
[2017-06-19 05:45] LABS: UREA NITROGEN 12 mg/dL (7-18)
[2017-06-19 09:26] VITALS: BP 125/76
[2017-06-19 12:44] VITALS: BP 134/84
[2017-06-19 17:46] VITALS: BP 126/71
[2017-06-19 20:00] VITALS: BP 109/70
[2017-06-20 04:00] VITALS: BP 114/70
[2017-06-20 04:50] LABS: BASOPHILS 0 % (0-2); EOSINOPHILS 0 % (0-7); HEMATOCRIT 33.1 % (36.0-48.0); HEMOGLOBIN 9.8 g/dL (12-16); IMMATURE GRANULOCYTES 1.4 % (0-5); LYMPHOCYTES 10.4 % (15-50); MCHC 29.6 g/dL (31.0-37.0); MCV 94.6 fL (80.0-100.0); MEAN PLATELET VOLUME 9.4 fL (7.4-10.4); MONOCYTES 7.7 % (2-11); NEUTROPHILS 80.5 % (40-80); PLATELET COUNT 391 10x3/uL (130-400); RDW 14.9 % (11.5-14.5); WBC 6.5 10x3/uL (4.8-10.8)
[2017-06-20 05:10] LABS: ALBUMIN 2.4 g/dL (3.4-5.0); ALKALINE PHOSPHATASE 68 U/L (46-116); ALT (SGPT) 48 U/L (10-68); BILIRUBIN - TOTAL 0.27 mg/dL (0.2-1.3); CALC OSMOLALITY 281 mosm/kg (275-300); CALCIUM 8.3 mg/dL (8.5-10.1); CHLORIDE - SERUM 100 mmol/L (98-107); CREATININE - SERUM 0.5 mg/dL (0.6-1.3); GLUCOSE 107 mg/dL (74-106); PROTEIN - SERUM 5.2 g/dL (6.4-8.2); SODIUM 142 mmol/L (136-145); UREA NITROGEN 9 mg/dL (7-18); eGFR NON AFRICAN AMERICAN > 90 mL/min (90-120)
[2017-06-20 09:47] VITALS: BP 127/72
[2017-06-20 12:02] VITALS: BP 138/86
[2017-06-20 16:09] VITALS: BP 109/75
[2017-06-20 19:43] VITALS: BP 115/70
[2017-06-20] MEDS ORDERED: CARDIZEM60 MG PO (19:48)
[2017-06-20 20:00] VITALS: BP 118/72
[2017-06-21 04:00] VITALS: BP 113/71
[2017-06-21 05:05] LABS: BASOPHILS 0 % (0-2); EOSINOPHILS 0 % (0-7); HEMATOCRIT 32.5 % (36.0-48.0); HEMOGLOBIN 9.6 g/dL (12-16); IMMATURE GRANULOCYTES 1.8 % (0-5); MCH 27.9 pg (26.0-34.0); MCHC 29.5 g/dL (31.0-37.0); MCV 94.5 fL (80.0-100.0); MEAN PLATELET VOLUME 9.4 fL (7.4-10.4); MONOCYTES 9.6 % (2-11); NEUTROPHILS 78.6 % (40-80); PLATELET COUNT 378 10x3/uL (130-400); RBC 3.44 10x6/uL (4.00-5.40); RDW 15.1 % (11.5-14.5); WBC 5.5 10x3/uL (4.8-10.8)
[2017-06-21 05:29] LABS: ALBUMIN 2.4 g/dL (3.4-5.0); ALKALINE PHOSPHATASE 60 U/L (46-116); ALT (SGPT) 37 U/L (10-68); BILIRUBIN - TOTAL 0.31 mg/dL (0.2-1.3); CALCIUM 8.2 mg/dL (8.5-10.1); CHLORIDE - SERUM 100 mmol/L (98-107); GLUCOSE 107 mg/dL (74-106); POTASSIUM - SERUM 3.7 mmol/L (3.5-5.1); SODIUM 143 mmol/L (136-145)
[2017-06-21 05:33] LABS: CALC OSMOLALITY 284 mosm/kg (275-300); CREATININE - SERUM 0.3 mg/dL (0.6-1.3); UREA NITROGEN 12 mg/dL (7-18); eGFR NON AFRICAN AMERICAN > 90 mL/min (90-120)
[2017-06-21 05:34] LABS: CARBON DIOXIDE 42.2 mmol/L (21.0-32.0)
[2017-06-21 09:40] VITALS: BP 127/77
[2017-06-21 11:48] VITALS: BP 125/73
[2017-06-21 16:28] VITALS: BP 101/69
[2017-06-21 20:00] VITALS: BP 102/78
[2017-06-22 04:00] VITALS: BP 114/69
[2017-06-22 05:15] LABS: BASOPHILS 0 % (0-2); EOSINOPHILS 0 % (0-7); HEMATOCRIT 36.6 % (36.0-48.0); HEMOGLOBIN 10.8 g/dL (12-16); IMMATURE GRANULOCYTES 2.3 % (0-5); LYMPHOCYTES 9.8 % (15-50); MCHC 29.5 g/dL (31.0-37.0); MCV 94.8 fL (80.0-100.0); MEAN PLATELET VOLUME 9.6 fL (7.4-10.4); MONOCYTES 7.1 % (2-11); NEUTROPHILS 80.8 % (40-80); PLATELET COUNT 430 10x3/uL (130-400); RBC 3.86 10x6/uL (4.00-5.40); RDW 15.2 % (11.5-14.5)
[2017-06-22 05:21] LABS: WBC 8.3 10x3/uL (4.8-10.8)
[2017-06-22 05:39] LABS: ALBUMIN 2.9 g/dL (3.4-5.0); ALKALINE PHOSPHATASE 66 U/L (46-116); ALT (SGPT) 41 U/L (10-68); CALC OSMOLALITY 284 mosm/kg (275-300); CALCIUM 8.8 mg/dL (8.5-10.1); CARBON DIOXIDE 33.7 mmol/L (21.0-32.0); CHLORIDE - SERUM 104 mmol/L (98-107); GLUCOSE 123 mg/dL (74-106); POTASSIUM - SERUM 3.8 mmol/L (3.5-5.1); SODIUM 142 mmol/L (136-145); UREA NITROGEN 14 mg/dL (7-18)
[2017-06-22 05:40] LABS: CREATININE - SERUM 0.5 mg/dL (0.6-1.3); eGFR NON AFRICAN AMERICAN > 90 mL/min (90-120)
[2017-06-22 09:02] VITALS: BP 138/75
[2017-06-22 12:24] VITALS: BP 112/70
[2017-06-22 16:21] VITALS: BP 90/56
[2017-06-22 20:00] VITALS: BP 129/79
[2017-06-23] VITALS: BP 83/50
[2017-06-23 04:00] VITALS: BP 87/54
[2017-06-23 05:30] LABS: BASOPHILS 0 % (0-2); EOSINOPHILS 0 % (0-7); HEMATOCRIT 36.3 % (36.0-48.0); HEMOGLOBIN 10.7 g/dL (12-16); IMMATURE GRANULOCYTES 2.2 % (0-5); LYMPHOCYTES 9.8 % (15-50); MCH 28.2 pg (26.0-34.0); MCHC 29.5 g/dL (31.0-37.0); MCV 95.5 fL (80.0-100.0); MEAN PLATELET VOLUME 9.3 fL (7.4-10.4); MONOCYTES 6.6 % (2-11); NEUTROPHILS 81.4 % (40-80); PLATELET COUNT 492 10x3/uL (130-400); RDW 15.4 % (11.5-14.5); WBC 9.2 10x3/uL (4.8-10.8)
[2017-06-23 05:48] LABS: ALBUMIN 3.1 g/dL (3.4-5.0); ALKALINE PHOSPHATASE 68 U/L (46-116); ALT (SGPT) 48 U/L (10-68); BILIRUBIN - TOTAL 0.32 mg/dL (0.2-1.3); CALCIUM 8.8 mg/dL (8.5-10.1); CARBON DIOXIDE 35.1 mmol/L (21.0-32.0); CHLORIDE - SERUM 104 mmol/L (98-107); CREATININE - SERUM 0.5 mg/dL (0.6-1.3); GLUCOSE 110 mg/dL (74-106); MAGNESIUM - SERUM 2.2 mg/dL (1.8-2.4); PHOSPHOROUS 3.8 mg/dL (2.5-4.9); SODIUM 142 mmol/L (136-145); eGFR NON AFRICAN AMERICAN > 90 mL/min (90-120)
[2017-06-23 05:49] LABS: CALC OSMOLALITY 285 mosm/kg (275-300); POTASSIUM - SERUM 4.4 mmol/L (3.5-5.1); UREA NITROGEN 19 mg/dL (7-18)
[2017-06-23 08:55] VITALS: BP 134/80
[2017-06-23 13:01] VITALS: BP 113/65
[2017-06-23] MEDS ORDERED: GABAPENTIN100 MG PO (14:54)
[2017-06-23] MEDS ORDERED: DIAMOX250 MG PO (14:54)
== END 2017-06-23 15:57 | disposition home or self-care (01) | DRG 189 ==
LOC: D.ER 22:45 → D.ICU 06-15 06:02 → D.MS 06-18 19:05
PROVIDERS: Emergency Medicine; Family Medicine; Internal Medicine Pulmonary Disease
PROC: 5A09457 Assistance with Respiratory Ventilation, 24-96 Consecutive Hours, Continuous Positive Airway Pressure (ICD-10-PCS; principal; 2017-06-14)
DX: J96.20 Acute and chronic respiratory failure, unspecified whether with hypoxia or hypercapnia (principal); J44.1 Chronic obstructive pulmonary disease with (acute) exacerbation; J98.11 Atelectasis; E88.01 Alpha-1-antitrypsin deficiency; G89.29 Other chronic pain; K21.9 Gastro-esophageal reflux disease without esophagitis; F41.9 Anxiety disorder, unspecified; F32.9 Major depressive disorder, single episode, unspecified; Z87.891 Personal history of nicotine dependence; R91.8 Other nonspecific abnormal finding of lung field; J31.0 Chronic rhinitis; Z99.81 Dependence on supplemental oxygen; M19.90 Unspecified osteoarthritis, unspecified site; B02.9 Zoster without complications; D64.9 Anemia, unspecified

== ENCOUNTER 2017-06-26 17:33 | Inpatient (IN) | payer MEDICAID ==
[~2017-06-26] VITALS: Ht 162.6 cm; Wt 72.5 kg
--- NOTE | ~2017-06-26 | PN ---
PATIENT:NEEL MARIE MEDICAL RECORD: [id number] LOCATION:D.ICU D.230 ADMISSION DATE: 06/26/17 PROGRESS NOTE DATE OF SERVICE: 07/02/2017 ADDENDUM CHIEF COMPLAINT: None. The patient continues to be mechanically ventilated. She has a small air leak, this is improved. I have personally reviewed the chest x-ray images. I have personally reviewed the chest x-ray report. The patient due to her ventilated state is under sedation and is unable to provide me with any aggravating or alleviating factors. For the typed portion of the progress note, please see the chart. This would include the past medical and surgical history, current medications, allergies, social history as well as family history. REVIEW OF SYSTEMS: Unobtainable from the patient due to her ventilated and sedated state. PHYSICAL EXAMINATION: GENERAL: The patient appears acutely ill. Also appears chronically ill. The entire physical examination was performed in the presence of a female nurse. VITAL SIGNS: Reviewed. HEENT: Ears: External ears appear normal. Eyes: Extraocular movements are intact. NECK: Trachea is midline. CHEST: No intercostal retractions. PULMONARY: Mildly labored intercostal retractions. No stridor. ABDOMEN: No peritonitis with movement. INTEGUMENT: There is an intertriginous rash. PSYCHIATRIC: Unable to assess due to sedation. NEUROLOGIC: Unable to assess due to sedation. BACK: Mild thoracic kyphosis is present. IMPRESSION: Indwelling right-sided chest tube to treat a tension pneumothorax. PLAN: Continue chest tube suction to 20 cm of water. TRANSINT:[id number] Voice Confirmation ID: [id number] DOCUMENT ID: [id number] PROGRESS NOTE [id number] CYNTHIAFELIPENEELCANDI LONG MD at 1034 CC: [id number] DICTATION DATE: 07/02/171956 EARLY CHILDHOOD EDUCATION COORDINATOR: 07/03/17 0854 ADM IN [facility] [address] [place] [address]
--- NOTE | ~2017-06-26 | CN ---
PATIENT NAME:NEEL MARIE MEDICAL RECORD: [id number] : 63 LOCATION:[facility]2 ADMIT DATE: 06/26/17 ACCOUNT: [id number] CONSULTING PHYSICIAN: KRIS DELEON MD REFERRING PHYSICIAN: SIERRA STAPLETON MD DATE OF CONSULTATION: 06/27/2017 CONSULT REQUESTING PHYSICIAN: Sierra Stapleton MD REASON FOR CONSULTATION: Vent management, respiratory failure. HISTORY OF PRESENT ILLNESS: Ms. Marie is a 51-year-old female, very well known to our service. The patient has end-stage COPD; alpha 1 deficiency, on replacement therapy. The patient was just discharged on the 23 of June for COPD exacerbation. While at home, she was using her inhaler. She started coughing and she went into acute respiratory distress. EMS was called and the patient was intubated on her way to the ER. She was also tachycardic with rate of 160 to 170 and her CO2 was in 70s. Now, the patient is orally intubated and sedated. The history was taken by reviewing the patient's note and talking to the patient's . REVIEW OF THE SYSTEMS: As in history of present illness. PAST MEDICAL HISTORY: 1. COPD of severe degree. 2. Chronic hypoxic respiratory failure. 3. Alpha-1 antitrypsin deficiency, MZ type. 4. Depression and anxiety. PAST SURGICAL HISTORY: She had and back surgery. ALLERGIES: SHE IS ALLERGIC TO LORAZEPAM, ASPIRIN, FLUOXETINE, TRAZODONE, AND BUPROPION. MEDICATIONS: [employer] was reviewed. PERSONAL AND SOCIAL HISTORY: The patient is and lives with her . She was smoking until 2 years ago. She is nondrinker. FAMILY HISTORY: Noncontributory. PHYSICAL EXAMINATION: GENERAL: Now, the patient is orally intubated and sedated. VITAL SIGNS: The blood pressure is 116/83 to 116/99, pulse is 124, temperature is 99.9, SpO2 is 93%. She is on SIMV. Tidal volume of 550. HEENT: Conjunctivae pink. Sclerae nonicteric. NECK: Neck is supple. No JVD. CHEST: The chest excursion is minimal on both sides with crackles at the left base. HEART: Rhythm regular. Normal sounds. No murmur. ABDOMEN: Abdomen is soft. Bowel sounds present. No hepatosplenomegaly. RECTAL: Deferred. EXTREMITIES: No cyanosis. No clubbing. No pedal edema. SKIN: The skin is warm. Normal turgor. CENTRAL NERVOUS SYSTEM: There is no obvious cranial nerve abnormality. The CONSULT REPORT [id number] NEEL MARIE patient is orally intubated and sedated. CHEST RADIOGRAPH: There is infiltrate in left lower lobe. ET tube is in good position. CBC; the WBC is 33,000, hemoglobin 12, hematocrit 40.1, platelet count is 448. Chemistry; sodium is 140, potassium 3.2, BUN is 16, creatinine 0.8. ABG; the pH is 7.37, pCO2 is 70.3, the pO2 is 108. IMPRESSION: 1. Jepbn-sh-qrszhqr hypoxic hypercapnic respiratory failure. 2. Respiratory acidosis secondary to #1. 3. Acute exacerbation of COPD. 4. Hypotension secondary to sepsis. 5. Elevated cardiac enzymes. 6. Pneumonia, left lower lobe, most likely hospital-acquired pneumonia with recent hospitalization. 7. Alpha-1 antitrypsin deficiency. 8. Leukocytosis. RECOMMENDATION: 1. Start methylprednisolone IV, Brovana and budesonide nebulizer b.i.d., albuterol and ipratropium nebulizer, propofol for sedation. 2. GI bleeding ulcer prevention. 3. DVT prophylaxis. 4. Levaquin IV, cefepime IV, vancomycin IV to treat for gram-negative rods as there is questionable MRSA and hospital-acquired pneumonia. 5. Followup labs and chest radiograph. Discussed with the patient's . Labs and charts reviewed. The critical care time is [address] Stapleton, thank you for involving me in the care of Ms. Marie. TRANSINT:[id number] Voice Confirmation ID: [id number] DOCUMENT ID: [id number] KRIS DELEON MD at 1148 CC: SIERRA STAPLETON MD [id number] DICTATION DATE: 06/27/171801 MANUFACTURING ENGINEER SUPERVISOR: 06/27/17 1855 ADM IN [id number] [place] [address]
--- NOTE | ~2017-06-26 | PN ---
PATIENT:NEEL MARIE MEDICAL RECORD: [id number] LOCATION:D.[facility] D.230 ADMISSION DATE: 06/26/17 PROGRESS NOTE DATE OF SERVICE: 07/04/2017 PROGRESS NOTE ADDENDUM CHIEF COMPLAINT: None. The patient continues to be mechanically ventilated. I have personally reviewed her chest x-ray images from this morning. I have personally reviewed the chest x-ray report. There is no air leak. She continues at 20 cm of water suction. There are 2 pneumothoraces on the right. Both are small. One is apical and one is basilar. The patient is being mechanically ventilated and is being sedated. Due to the sedation, she is unable to provide me with any aggravating or alleviating factors or the severity of any discomfort. This is a progress note addendum. For the typed portion of the progress note, please see the chart. This would include the past medical and surgical history, current medications, allergies, social history as well as family history. REVIEW OF SYSTEMS: Unobtainable from the patient as she is being mechanically ventilated and is sedated. PHYSICAL EXAMINATION: GENERAL: The patient appears acutely ill. Also appears chronically ill. VITAL SIGNS: Reviewed. The entire physical examination was performed in the presence of a female nurse. EARS: External ears appear normal. EYES: Extraocular movements are intact. NECK: Trachea is midline. CHEST: Intercostal retractions are present. Rhonchi bilaterally. ABDOMEN: Unable to assess due to sedation. NEUROLOGIC: Unable to assess due to sedation. PSYCHIATRIC: Unable to assess due to sedation. EXTREMITIES: No peripheral cyanosis. She has peripheral edema, however. BACK: Mild thoracic kyphosis is present. IMPRESSION: Small pneumothoraces following the chest tube placement for tension pneumothorax. PLAN: Continue chest tube suction at 20 cm of water for now. TRANSINT:[id number] Voice Confirmation ID: [id number] DOCUMENT ID: [id number] PROGRESS NOTE [id number] CYNTHIAFELIPENEELFROILAN BRAR, CANDI BOYD at 1034 CC: [id number] DICTATION DATE: 07/04/17 1503 CUSTOM MILLER: 07/04/17 1543 ADM IN [id number] [place] [address]
--- NOTE | ~2017-06-26 | PN ---
PATIENT:NEEL MARIE MEDICAL RECORD: [id number] LOCATION:D.ICU D.230 ADMISSION DATE: 06/26/17 PROGRESS NOTE DATE OF SERVICE: 07/03/2017 ADDENDUM CHIEF COMPLAINT: None. HISTORY OF PRESENT ILLNESS: The entire examination was performed in the presence of a female nurse. The patient has a persistent air leak; however, it is smaller. She had a good bit of subcutaneous emphysema, which has resolved largely. I am going to continue her at 20 cm water suction. Due to her ventilated and sedated state she is unable to provide me with any review of systems or aggravating or alleviating factors. This is a progress note addendum. For entire portion of the progress note, please see the chart. The typed portion of the chart will include past medical and surgical history and current medications, allergies, social history as well as family history. REVIEW OF SYSTEMS: Unobtainable from the patient due to her ventilated and sedated state. PHYSICAL EXAMINATION: GENERAL: The patient appears acutely ill. Also appears chronically ill. VITAL SIGNS: Reviewed. EARS: External ears appear normal. EYES: Extraocular movements are intact. NECK: Trachea is midline. CHEST: Intercostal retractions are present. Bilateral rhonchi, right-sided chest tube. ABDOMEN: Unable to assess due to sedation. PSYCHIATRIC: Unable to assess due to sedation. NEUROLOGIC: Unable to assess due to sedation. EXTREMITIES: No peripheral cyanosis. INTEGUMENT: There is an intertriginous rash. BACK: Mild thoracic kyphosis. IMPRESSION: Tension pneumothorax, resolved with placement of right-sided 28-Montserratian chest tube. PLAN: Serial abdominal examinations. Serial chest x-rays. Continue suction to the chest tube. TRANSINT:[id number] Voice Confirmation ID: [id number] DOCUMENT ID: [id number] PROGRESS NOTE [id number] NEEL MARIE SUSHANT BRAR, CANDI BOYD at 1034 CC: [id number] DICTATION DATE: 07/04/17 0844 APPLICATIONS MANAGER: 07/04/17 1044 ADM IN [id number] [place] [place] [id number]
--- NOTE | ~2017-06-26 | OP ---
PATIENT NAME: NEEL MARIE MEDICAL RECORD: [id number] :63 LOCATION:D.[facility] D.2302 ADMISSION DATE:06/26/17 SURGEON: CANDI BRAR MD DATE OF OPERATION: 07/17/2017 PREOPERATIVE DIAGNOSES: 1. Prolonged mechanical ventilation. 2. Pneumonia. 3. Persistent air leak, right chest. 4. Prolonged indwelling nasogastric tube. POSTOPERATIVE DIAGNOSES: 1. Prolonged mechanical ventilation. 2. Pneumonia. 3. Persistent air leak, right chest. 4. Prolonged indwelling nasogastric tube. 5. Linear ulceration of the esophagus from the nasogastric tube. 6. Punctate areas with recent hemorrhage within the fundus of the stomach also from the indwelling nasogastric tube. 7. Moderate fundal gastritis. 8. Mucopurulent debris in the lower lobes of both lungs. 9. Possible yeast overgrowth within the tracheobronchial tree. PROCEDURES: 1. Diagnostic and therapeutic bronchoscopy with bronchoalveolar lavage. 2. Percutaneous tracheostomy placement, 7.0 mm. 3. EGD with antral biopsies. 4. Percutaneous endoscopic gastrostomy tube placement, 20 Andorran. 5. Right 32-Andorran chest tube change out with talc pleurodesis of the right chest. SURGEON: Candi Brar MD FLOOR SPECIALIST: None. BLOOD LOSS: Minimal. ANESTHESIA: General. COMPLICATIONS: None. The risks, possible complications, and alternatives to procedure were explained to the patient and her family. They elected to proceed. OPERATIVE COURSE: The patient was conveyed to the operating room electively on 07/17/2017. General anesthesia was induced by anesthesia staff. The right chest was sterilely prepped and draped. The indwelling chest tube was removed and the sutures were removed. I put my sterile gloved finger into the right hemithorax to ensure that there was a tract where I can place a chest tube. I then created a slurry of 16 grams of sterile talc with normal saline and instilled this in to the right chest. Once it had sat in the right chest for a little while, I advanced with a 32-Andorran chest tube to 14 cm and sutured in place with a 2-0 Prolene. I closed a little bit of the chest tube incision with another 2-0 nylon in a horizontal mattress fashion. The chest tube was attached to the chest tube canister which was attached to the suction and there was an OPERATIVE REPORT [id number] NEEL MARIEAN air leak. A sterile dressing was applied. The abdomen was sterilely prepped and draped. A bite block was inserted. A gastroscope was inserted into the mouth. It was advanced easily into the hypopharynx. The esophagus was easily intubated as were the stomach and duodenum. Upon withdrawal, retroflexed and angulus views were obtained. Antral biopsies were obtained. I then indented the anterior abdominal wall skin. I was able to visualize this endoscopically. A local anesthetic was used to infiltrate the skin and subcutaneous tissues overlying the left upper quadrant. A skin incision was accomplished. I advanced an Angiocath through the skin incision and punctured the anterior portion of the stomach on the first try. I advanced a wire through the Angiocath. This was grasped with an endoscopic snare and withdrawn out through the mouth. I then attached the guidewire to a pull-type of gastrostomy tube, which was then pulled into place. I re-endoscoped the patient's esophagus and stomach to ensure that no false passage or perforation had occurred. Indeed, there have been no false passage or perforation. Hub and flange devices were attached. The endoscope was withdrawn under direct vision. Attention was then turned to the bronchoscopy and percutaneous tracheostomy. A shoulder roll was placed under the patient's shoulders. The anterior neck was sterilely prepped and draped. I advanced a bronchoscope down through the endotracheal tube after attaching a bronchoscopic adapter trough the endotracheal tube. I first examined the left lung and then the right lung. Mucopurulent debris was identified in both lower lobes. I performed a bronchoalveolar lavage of all the segmental bronchi until they were all clear. Some mixed cultures were obtained as well through a Luki tube. I then went and performed a midline incision superior to the suprasternal notch. I dissected down through the skin and subcutaneous tissues and dissected down, the strap muscles and identifying the trachea. I then had the COMPLIANCE LEAD pull back the endotracheal tube and the bronchoscope as a single unit. I punctured the anterior surface of the trachea with an Angiocath. A guidewire passed easily. This was below the second tracheal ring. Over the guidewire, I dilated to a larger size. I then loaded the 7-mm percutaneous tracheostomy tube over the wire. It was advanced down into the trachea, then a balloon inflated. The obturator for the tracheostomy was then removed. I then quickly performed a bronchoscopy through the tracheostomy. It confirmed that there was intratracheal placement of the tracheostomy. I sutured the flanges of the tracheostomy tube to the surrounding skin with 2-0 silks. I then closed some of the skin around the tracheostomy tube with 3-0 Vicryls. I then instilled Abhishek for hemostasis around the tracheostomy tube. The patient was then conveyed to the intensive care unit while being mechanically ventilated, in critical condition. TRANSINT:[id number] Voice Confirmation ID: [id number] DOCUMENT ID: [id number] OPERATIVE REPORT [id number] NEEL MARIE, CANDI BOYD at 1019 CC: AYUSH ACUÑA MD, Bay DESAI and MAHIN STAPLETON MD [id number] DICTATION DATE: 07/17/17 1636 ROUTE SUPERVISOR: 07/18/17 0208 ADM IN [facility] [address] [id number]
--- NOTE | ~2017-06-26 | PN ---
PATIENT:NEEL MARIE MEDICAL RECORD: [id number] LOCATION:D.[facility] D.230 ADMISSION DATE: 06/26/17 PROGRESS NOTE DATE OF SERVICE: 07/11/2017 Progress Note Addendum CHIEF COMPLAINT: None. The patient remains mechanically ventilated. She is unable to provide us with any aggravating or alleviating factors. For the typed portion of the progress notes, please see the chart. This would include the patient's past medical and surgical history, current medications, allergies, social history as well as family history. REVIEW OF SYSTEMS: Really unobtainable from the patient due to her ventilated state. She is less sedated than in the past. PHYSICAL EXAMINATION: GENERAL: The patient appears acutely ill. Also appears chronically ill. VITAL SIGNS: Reviewed. HEAD: External ears appear normal. EYES: Extraocular movements are intact. NECK: Trachea is midline. CHEST: No intercostal retractions. PULMONARY: There are intercostal retractions. Rhonchi bilaterally. ABDOMEN: Doughy. EXTREMITIES: No peripheral cyanosis. INTEGUMENT: There is an intertriginous rash. BACK: Mild thoracic kyphosis. LYMPHATIC: No lymphangitic streaking of the exposed extremities. IMPRESSION: Improving appearance of the patient's chest x-ray. I note no pneumothorax today. The subcutaneous emphysema involving the right lateral chest wall appears to be stable. There is no air leak. PLAN: Continue chest tube to 20 cm of water suction. TRANSINT:[id number] Voice Confirmation ID: [id number] DOCUMENT ID: [id number] CANDI BRAR MD at 1034 CC: [id number] DICTATION DATE: 07/11/17 1608 ELECTRICAL MACHINIST: 07/11/17 2358 ADM IN [facility] [address] [id number]
--- NOTE | ~2017-06-26 | OP ---
PATIENT NAME: NEEL MARIE MEDICAL RECORD: [id number] :63 LOCATION:D.[facility] D.2302 ADMISSION DATE:06/26/17 SURGEON: RONY BRAR MD DATE OF OPERATION: 07/08/2017 PREOPERATIVE DIAGNOSES: 1. Malfunctioning right-sided chest tube. 2. Recurrent pneumothorax, right chest. 3. Subcutaneous emphysema, right chest wall. POSTOPERATIVE DIAGNOSES: 1. Malfunctioning right-sided chest tube. 2. Recurrent pneumothorax, right chest. 3. Subcutaneous emphysema, right chest wall. PROCEDURE: A 32-Nepali chest tube. SURGEON: Rony Brar MD CONTINUOUS PROCESS MACHINE OPERATOR: None. BLOOD LOSS: Minimal. ANESTHESIA: General. COMPLICATIONS: None. I wanted to perform this procedure in the operating room to ensure that we had the most sterile environment possible for insertion of the new chest tube. OPERATIVE COURSE: The patient was conveyed to the operating room electively on 07/08/2017. General anesthesia was induced by the anesthesia staff. The patient's right chest was sterilely prepped and draped. The old chest tube was removed. The sutures were cut. I then inserted my gloved finger into the right hemithorax. I ensured that there were no adhesions around the chest tube insertion site. I then inserted a 32-Nepali chest tube to 14 cm. It incision was sutured together with a horizontal mattress 2-0 nylon. The chest tube was then sutured in place with a 2-0 nylon. Additional horizontal mattress 2-0 Prolene was then wrapped around the chest tube with bone wax in order to keep it in place and this will be through the final closure once the chest tube has been removed. The chest tube was attached to the suction canister tubing. A dressing was applied. The patient was then conveyed back to the intensive care unit. TRANSINT:[id number] Voice Confirmation ID: [id number] DOCUMENT ID: [id number] OPERATIVE REPORT [id number] NEEL MARIE ROBERT MD at 1034 CC: [id number] DICTATION DATE: 07/08/172206 SEARCH ENGINE OPTIMIZER: 07/09/17 0742 ADM IN [facility] [address] [place] [address]
--- NOTE | ~2017-06-26 | PN ---
PATIENT:NEEL MARIE MEDICAL RECORD: [id number] LOCATION:D.ICU D.230 ADMISSION DATE: 06/26/17 PROGRESS NOTE DATE OF SERVICE: 07/05/2017 PROGRESS NOTE ADDENDUM CHIEF COMPLAINT: None. The patient is unable to provide me with any alleviating or aggravating factors. She is being mechanically ventilated and is sedated. I have personally reviewed her chest x-ray images. I have personally reviewed the chest x-ray report. The patient has an increase in subcutaneous emphysema along the right lateral chest wall. I think there is likely a small basilar pneumothorax as well and this is in the lateral most recess. The patient still has an air leak. She is still at 20 cm of water suction. For the typed portion of the progress note, please see the chart. This will include past medical and surgical history, current medications, allergies, social history as well as family history. REVIEW OF SYSTEMS: Unobtainable from the patient due to her ventilated and sedated state. PHYSICAL EXAMINATION: GENERAL: The patient appears acutely ill. Also appears chronically ill. VITAL SIGNS: Reviewed. The entire physical examination was performed in the presence of a female nurse. EARS: External ears appear normal. EYES: Extraocular movements are intact. NECK: Trachea is midline. CHEST: Intercostal retractions are present. Rhonchi are present bilaterally. ABDOMEN: No peritonitis with movement. INTEGUMENT: There is an intertriginous rash. EXTREMITIES: No peripheral cyanosis. PSYCHIATRIC: Unable to assess due to sedation. NEURO: Unable to assess due to sedation. BACK: Mild thoracic kyphosis is present. IMPRESSION: Increasing subcutaneous emphysema in a patient being mechanically ventilated, who has had a pneumothorax that was treated with a chest tube. TRANSINT:[id number] Voice Confirmation ID: [id number] DOCUMENT ID: [id number] PROGRESS NOTE [id number] CYNTHIAFELIPENEELCANDI LONG MD at 1034 CC: [id number] DICTATION DATE: 07/05/17 1348 HAND WELT BUTTER: 07/05/17 1454 ADM IN [facility] [address] [place] [address]
--- NOTE | ~2017-06-26 | OP ---
PATIENT NAME: NEEL MARIE MEDICAL RECORD: [id number] :63 LOCATION:[facility] D.2302 ADMISSION DATE:06/26/17 SURGEON: RONY BRAR MD DATE OF OPERATION: 07/01/2017 PREOPERATIVE DIAGNOSIS: Tension pneumothorax, right. POSTOPERATIVE DIAGNOSIS: Tension pneumothorax, right. PROCEDURE: Emergent right 28-German chest tube placement. SURGEON: Rony Brar MD COATING OPERATOR: None. BLOOD LOSS: Minimal. ANESTHESIA: Diprivan drip as well local. COMPLICATIONS: None. OPERATIVE COURSE: The patient was placed in the lateral decubitus position with the left side down. The right chest was sterilely prepped and draped. Local anesthetic was used to infiltrate the skin and subcutaneous tissues at the mid axillary line at approximately the level of the 7th intercostal space. An incision was accomplished. I entered the right hemithorax over rib. There was a oliveira of air. I then advanced a 28-German chest tube to 18 cm. It was sutured in place with a silk suture. A sterile dressing was applied. The chest tube was then attached to suction. TRANSINT:[id number] Voice Confirmation ID: [id number] DOCUMENT ID: [id number] RONY BRAR MD at 1034 CC: [id number] DICTATION DATE: 07/01/17 1555 EARTHMOVING PLANT OPERATOR: 07/01/17 1609 ADM IN [place] [id number] [place] [address]
--- NOTE | ~2017-06-26 | EC ---
PATIENT:NEEL MARIE DATE OF SERVICE: 06/26/17 SEX: F MEDICAL RECORD: [id number] DATE OF : 63 LOCATION:[facility] D230 AGE OF PATIENT: 51 ADMISSION DATE: 06/26/17 REFERRING PHYSICIAN: INTERPRETING PHYSICIAN: ROHAN MORELOS MD ECHOCARDIOGRAM REPORT ECHO CHARGES 5 ECHO LIMITED CLINICAL DIAGNOSIS: ELVATED TROPONIN,ABN EKG ECHOCARDIOGRAPHIC MEASUREMENTS (adult normal given) AC root (d.<3.7cm) 2.6 cm LV Septum d (<1.2 cm> 1.2 cm Valve Excursion cm LV Septum (systole) 1.4 cm Left Atria (s.<4.0cm> 2.8 cm LVPW d(<1.2cm) 1.4 cm RV (d.<2.3cm) 2.3 cm LVPW (sytole) 1.5 cm LV diastole(<5.6CM) 2.9 cm MV E-F(>70mm/sec) cm LV systole 1.7 cm LVOT Diameter 1.8 cm MV exc.(>10mm) cm Est.ejection fraction (50-75%) % Pericardial Effusion Y DOPPLER: LVIT cm/sec A cm/sec E cm/sec LA cm/sec RVSP mmHg LVOT cm/sec AOP1/2T m/s Asc. Ao cm/sec RVOT cm/sec RA cm/sec PA cm/sec AV Gradient Peak mmHg AV Mean mmHg AV Area cm MV Gradient Peak mmHg MV Mean mmHg MV Area cm COMMENTS: Home Visits Nurse: Brittany FLYNN [facility] Dentist: Chan Morelos TAPE# PACS DATE OF SERVICE: 06/27/2017 PROCEDURE: Transthoracic echocardiogram. FINDINGS: 1. Left ventricle has left ventricular hypertrophy. The ejection fraction is 85% to 90%. 2. The right ventricle shows right ventricular hypertrophy with normal function. 3. The mitral valve appears to be structurally normal. ECHOCARDIOGRAM REPORT [id number] NEEL MARIE 4. The left atrium is normal size, normal function. There is no measurable elevation in the right ventricular systolic pressures. The patient does have a small pericardial effusion without any evidence of tamponade. The IVC is dilated. CONCLUSION: The patient has hyperdynamic LV systolic function. No obvious regional wall motion abnormalities. No obvious increase in pulmonary pressures. She does have evidence of right ventricular hypertrophy. TRANSINT:[id number] Voice Confirmation ID: [id number] DOCUMENT ID: [id number] ROHAN MORELOS MD at 0957 CC: [id number] DICTATION DATE: 06/27/17 1642 TECHNICAL SPECIALIST: 06/27/17 1740 ADM IN [place] [id number] [place] [id number]
--- NOTE | ~2017-06-26 | CN ---
PATIENT NAME:NEEL MARIE MEDICAL RECORD: [id number] : 63 LOCATION:[facility] ADMIT DATE: 06/26/17 ACCOUNT: [id number] CONSULTING PHYSICIAN: CANDI BRAR MD REFERRING PHYSICIAN: MAHIN STAPLETON MD DATE OF CONSULTATION: 07/01/2017 CHIEF COMPLAINT: Pneumothorax. HISTORY OF PRESENT ILLNESS: This was an emergency consultation. I was informed that the radiologist had read a chest film that had revealed a large right pneumothorax. The interventional radiologist was overt at [facility] and was going to take a while for him to get to this side of [facility]. I was consulted to place a chest tube. I came to the hospital immediately from home. I visualized that there was a large pneumothorax on the right and it appeared to be under tension. As I had all my equipment necessary to place a right-sided chest tube, I elected to place a chest tube rather than an initial needle decompression of the chest. The patient was not hypotensive. We turned up a Diprivan and I placed a chest tube. That is dictated separately. This is consultation note addendum, for the typed portion of the consult note, please see the chart. This will include the past medical and surgical history, allergies, current medications, social history as well family history. REVIEW OF SYSTEMS: Unobtainable from the patient as she is sedated and is also being mechanically ventilated by an endotracheal tube. PHYSICAL EXAMINATION: GENERAL: The patient appears acutely ill. Also appears chronically ill. VITAL SIGNS: Reviewed. The entire physical examination was performed with the presence of a female nurse. EARS: External ears appear normal. EYES: Extraocular movements are intact. NECK: Trachea is midline. CHEST: Intercostal retractions are present. Decreased breath sounds on the right side. Rhonchi on the left. EXTREMITIES: No peripheral cyanosis. INTEGUMENT: There is an intertriginous rash. BACK: Thoracic kyphosis is present. PSYCHIATRIC: Unable to assess due to sedation. NEUROLOGIC: Unable to assess due to sedation. IMPRESSION: Right tension pneumothorax. The patient is being mechanically ventilated. PLAN: Emergent right-sided chest tube placement. TRANSINT:[id number] Voice Confirmation ID: [id number] DOCUMENT ID: [id number] CONSULT REPORT [id number] CYNTHIAFELIPENEELCANDI LONG MD at 1034 CC: [id number] DICTATION DATE: 07/01/17 1554 HEEL PACKER: 07/01/17 1627 ADM IN [place] [id number] [place] [id number]
[~2017-06-26 17:33] MED LIST changes: +GABAPENTIN100 MG PO
[2017-06-26 18:34] LABS: HEMATOCRIT 39.9 % (36.0-48.0); HEMOGLOBIN 11.9 g/dL (12-16); MCH 28.4 pg (26.0-34.0); MCHC 29.8 g/dL (31.0-37.0); MCV 95.2 fL (80.0-100.0); MEAN PLATELET VOLUME 9.6 fL (7.4-10.4); PLATELET COUNT 468 10x3/uL (130-400); RBC 4.19 10x6/uL (4.00-5.40); RDW 15.2 % (11.5-14.5); WBC 25.5 10x3/uL (4.8-10.8)
[2017-06-26 18:53] LABS: LYMPHOCYTES 4 % (15-50); MONOCYTES 1 % (2-11); NEUTROPHILS 73 % (40-80); PLATELET ESTIMATE INCREASED
[2017-06-26 19:59] LABS: ALBUMIN 2.6 g/dL (3.4-5.0); ALKALINE PHOSPHATASE 91 U/L (46-116); ALT (SGPT) 265 U/L (10-68); BILIRUBIN - TOTAL 0.88 mg/dL (0.2-1.3); CALC OSMOLALITY 288 mosm/kg (275-300); CALCIUM 8.1 mg/dL (8.5-10.1); CHLORIDE - SERUM 99 mmol/L (98-107); CKMB 1.1 U/L (0.0-3.6); CREATININE - SERUM 0.6 mg/dL (0.6-1.3); GLUCOSE 140 mg/dL (74-106); POTASSIUM - SERUM 3.3 mmol/L (3.5-5.1); PROTEIN - SERUM 5.4 g/dL (6.4-8.2); SODIUM 143 mmol/L (136-145); UREA NITROGEN 17 mg/dL (7-18); eGFR NON AFRICAN AMERICAN > 90 mL/min (90-120)
[2017-06-26 20:05] LABS: CARBON DIOXIDE 41.9 mmol/L (21.0-32.0)
[2017-06-26 20:06] LABS: TROPONIN-I 0.163 ng/mL (0.000-0.060)
[2017-06-26 22:11] LABS: TROPONIN-I 0.87 ng/mL (0.000-0.060)
[2017-06-26 22:40] VITALS: BP 102/64
[2017-06-26 22:50] VITALS: BP 123/62
[2017-06-26 22:55] VITALS: BP 93/65
[2017-06-26 23:10] VITALS: BP 85/41
[2017-06-26 23:30] VITALS: BP 98/77
[2017-06-26 23:45] VITALS: BP 92/65
[2017-06-27] VITALS (95 sets, daily range): BP systolic 78–133; BP diastolic 38–107; Ht 162.6 cm; Wt 72.5 kg
[2017-06-27 04:05] LABS: BASOPHILS 0.1 % (0-2); EOSINOPHILS 0 % (0-7); HEMATOCRIT 40.1 % (36.0-48.0); IMMATURE GRANULOCYTES 0.6 % (0-5); LYMPHOCYTES 2.1 % (15-50); MCH 28.4 pg (26.0-34.0); MCHC 29.9 g/dL (31.0-37.0); MCV 94.8 fL (80.0-100.0); MEAN PLATELET VOLUME 9.5 fL (7.4-10.4); MONOCYTES 2.1 % (2-11); NEUTROPHILS 95.1 % (40-80); PLATELET COUNT 448 10x3/uL (130-400); RBC 4.23 10x6/uL (4.00-5.40); RDW 15.5 % (11.5-14.5)
[2017-06-27 04:20] LABS: CALC OSMOLALITY 282 mosm/kg (275-300); CALCIUM 7.6 mg/dL (8.5-10.1); CARBON DIOXIDE 34.3 mmol/L (21.0-32.0); CHLORIDE - SERUM 100 mmol/L (98-107); CKMB 3.6 U/L (0.0-3.6); CREATINE KINASE 55 UL (21-215); GLUCOSE 154 mg/dL (74-106); POTASSIUM - SERUM 3.2 mmol/L (3.5-5.1); SODIUM 140 mmol/L (136-145); UREA NITROGEN 16 mg/dL (7-18)
[2017-06-27 04:23] LABS: CREATININE - SERUM 0.8 mg/dL (0.6-1.3); eGFR NON AFRICAN AMERICAN 80 mL/min (90-120)
[2017-06-27 04:24] LABS: TROPONIN-I 1.322 ng/mL (0.000-0.060)
[2017-06-27 19:05] LABS: CKMB 1.1 U/L (0.0-3.6); CREATINE KINASE 65 UL (21-215)
[2017-06-27 19:07] LABS: TROPONIN-I 1.593 ng/mL (0.000-0.060)
[2017-06-28] VITALS (42 sets, daily range): BP systolic 82–131; BP diastolic 64–95
[2017-06-28 04:28] LABS: BASOPHILS 0 % (0-2); EOSINOPHILS 0 % (0-7); HEMATOCRIT 36.9 % (36.0-48.0); HEMOGLOBIN 11.3 g/dL (12-16); IMMATURE GRANULOCYTES 0.4 % (0-5); LYMPHOCYTES 1.6 % (15-50); MCH 28.4 pg (26.0-34.0); MCHC 30.6 g/dL (31.0-37.0); MCV 92.7 fL (80.0-100.0); MONOCYTES 1.7 % (2-11); NEUTROPHILS 96.3 % (40-80); PLATELET COUNT 350 10x3/uL (130-400); RBC 3.98 10x6/uL (4.00-5.40); RDW 16.5 % (11.5-14.5)
[2017-06-28 04:34] LABS: CALC OSMOLALITY 291 mosm/kg (275-300); CALCIUM 7.8 mg/dL (8.5-10.1); CARBON DIOXIDE 30.7 mmol/L (21.0-32.0); CHLORIDE - SERUM 107 mmol/L (98-107); CREATININE - SERUM 0.6 mg/dL (0.6-1.3); GLUCOSE 142 mg/dL (74-106); MAGNESIUM - SERUM 1.7 mg/dL (1.8-2.4); SODIUM 145 mmol/L (136-145); UREA NITROGEN 16 mg/dL (7-18); eGFR NON AFRICAN AMERICAN > 90 mL/min (90-120)
[2017-06-28 04:44] LABS: POTASSIUM - SERUM 2.5 mmol/L (3.5-5.1)
[2017-06-28 23:29] LABS: VANCOMYCIN - TROUGH 12.7 ug/mL (10.0-20.0)
[2017-06-28 23:30] LABS: POTASSIUM - SERUM 4.2 mmol/L (3.5-5.1)
[2017-06-29] VITALS (24 sets, daily range): BP systolic 97–130; BP diastolic 66–89
[2017-06-29 05:49] LABS: BASOPHILS 0.1 % (0-2); EOSINOPHILS 0 % (0-7); HEMATOCRIT 29.9 % (36.0-48.0); IMMATURE GRANULOCYTES 0.4 % (0-5); LYMPHOCYTES 1.9 % (15-50); MCHC 30.1 g/dL (31.0-37.0); MCV 92.9 fL (80.0-100.0); MEAN PLATELET VOLUME 9.9 fL (7.4-10.4); NEUTROPHILS 95.6 % (40-80); RBC 3.22 10x6/uL (4.00-5.40); RDW 17.3 % (11.5-14.5)
[2017-06-29 06:12] LABS: PLATELET COUNT 212 10x3/uL (130-400); WBC 15.9 10x3/uL (4.8-10.8)
[2017-06-29 06:27] LABS: ALBUMIN 1.7 g/dL (3.4-5.0); ALKALINE PHOSPHATASE 66 U/L (46-116); ALT (SGPT) 174 U/L (10-68); BILIRUBIN - TOTAL 0.33 mg/dL (0.2-1.3); CALC OSMOLALITY 290 mosm/kg (275-300); CALCIUM 7.6 mg/dL (8.5-10.1); CARBON DIOXIDE 30.6 mmol/L (21.0-32.0); CHLORIDE - SERUM 109 mmol/L (98-107); CREATININE - SERUM 0.3 mg/dL (0.6-1.3); GLUCOSE 132 mg/dL (74-106); POTASSIUM - SERUM 4.4 mmol/L (3.5-5.1); PROTEIN - SERUM 4.9 g/dL (6.4-8.2); SODIUM 144 mmol/L (136-145); UREA NITROGEN 19 mg/dL (7-18); eGFR NON AFRICAN AMERICAN > 90 mL/min (90-120)
[2017-06-30] VITALS (25 sets, daily range): BP systolic 85–138; BP diastolic 48–97
[2017-06-30 04:41] LABS: BASOPHILS 0.1 % (0-2); EOSINOPHILS 0 % (0-7); HEMATOCRIT 28.9 % (36.0-48.0); HEMOGLOBIN 8.7 g/dL (12-16); IMMATURE GRANULOCYTES 1.9 % (0-5); LYMPHOCYTES 2.2 % (15-50); MCH 28.1 pg (26.0-34.0); MCHC 30.1 g/dL (31.0-37.0); MCV 93.2 fL (80.0-100.0); MEAN PLATELET VOLUME 9.9 fL (7.4-10.4); MONOCYTES 3.2 % (2-11); NEUTROPHILS 92.6 % (40-80); PLATELET COUNT 195 10x3/uL (130-400); RDW 17.3 % (11.5-14.5); WBC 13.6 10x3/uL (4.8-10.8)
[2017-06-30 04:58] LABS: ALBUMIN 1.8 g/dL (3.4-5.0); ALKALINE PHOSPHATASE 63 U/L (46-116); ALT (SGPT) 161 U/L (10-68); BILIRUBIN - TOTAL 0.34 mg/dL (0.2-1.3); CALC OSMOLALITY 292 mosm/kg (275-300); CALCIUM 7.5 mg/dL (8.5-10.1); CARBON DIOXIDE 32.7 mmol/L (21.0-32.0); CHLORIDE - SERUM 108 mmol/L (98-107); GLUCOSE 131 mg/dL (74-106); MAGNESIUM - SERUM 2.1 mg/dL (1.8-2.4); POTASSIUM - SERUM 3.9 mmol/L (3.5-5.1); PROTEIN - SERUM 5.2 g/dL (6.4-8.2); SODIUM 145 mmol/L (136-145); UREA NITROGEN 18 mg/dL (7-18)
[2017-06-30 04:59] LABS: CREATININE - SERUM 0.4 mg/dL (0.6-1.3); eGFR NON AFRICAN AMERICAN > 90 mL/min (90-120)
[2017-07-01] VITALS (23 sets, daily range): BP systolic 104–135; BP diastolic 69–97
[2017-07-01 04:54] LABS: WBC 21.4 10x3/uL (4.8-10.8)
[2017-07-01 04:55] LABS: BASOPHILS 0.2 % (0-2); EOSINOPHILS 0 % (0-7); HEMATOCRIT 36.8 % (36.0-48.0); IMMATURE GRANULOCYTES 6.6 % (0-5); LYMPHOCYTES 4.2 % (15-50); MCH 28.4 pg (26.0-34.0); MCHC 29.9 g/dL (31.0-37.0); MCV 94.8 fL (80.0-100.0); MEAN PLATELET VOLUME 10.5 fL (7.4-10.4); MONOCYTES 4.1 % (2-11); NEUTROPHILS 84.9 % (40-80); PLATELET COUNT 227 10x3/uL (130-400); RBC 3.88 10x6/uL (4.00-5.40); RDW 17.8 % (11.5-14.5)
[2017-07-01 05:12] LABS: ALKALINE PHOSPHATASE 84 U/L (46-116); ALT (SGPT) 197 U/L (10-68); CALCIUM 7.2 mg/dL (8.5-10.1); CARBON DIOXIDE 28.8 mmol/L (21.0-32.0); CHLORIDE - SERUM 109 mmol/L (98-107); CREATININE - SERUM 0.4 mg/dL (0.6-1.3); GLUCOSE 149 mg/dL (74-106); PROTEIN - SERUM 5.2 g/dL (6.4-8.2); SODIUM 142 mmol/L (136-145); eGFR NON AFRICAN AMERICAN > 90 mL/min (90-120)
[2017-07-01 05:23] LABS: CALC OSMOLALITY 291 mosm/kg (275-300); POTASSIUM - SERUM 4.7 mmol/L (3.5-5.1); UREA NITROGEN 28 mg/dL (7-18)
[2017-07-02] VITALS (24 sets, daily range): BP systolic 89–133; BP diastolic 52–82
[2017-07-02 05:38] LABS: ALBUMIN 1.7 g/dL (3.4-5.0); ALKALINE PHOSPHATASE 62 U/L (46-116); ALT (SGPT) 202 U/L (10-68); BILIRUBIN - TOTAL 0.44 mg/dL (0.2-1.3); CALC OSMOLALITY 289 mosm/kg (275-300); CARBON DIOXIDE 32.7 mmol/L (21.0-32.0); CHLORIDE - SERUM 107 mmol/L (98-107); CREATININE - SERUM 0.3 mg/dL (0.6-1.3); GLUCOSE 108 mg/dL (74-106); MAGNESIUM - SERUM 1.8 mg/dL (1.8-2.4); POTASSIUM - SERUM 4.2 mmol/L (3.5-5.1); PROTEIN - SERUM 4.3 g/dL (6.4-8.2); SODIUM 143 mmol/L (136-145); UREA NITROGEN 25 mg/dL (7-18); eGFR NON AFRICAN AMERICAN > 90 mL/min (90-120)
[2017-07-02 06:48] LABS: BASOPHILS 0.1 % (0-2); EOSINOPHILS 0 % (0-7); HEMATOCRIT 28.3 % (36.0-48.0); HEMOGLOBIN 8.7 g/dL (12-16); IMMATURE GRANULOCYTES 5.7 % (0-5); LYMPHOCYTES 3.7 % (15-50); MCH 28.2 pg (26.0-34.0); MCHC 30.7 g/dL (31.0-37.0); MCV 91.9 fL (80.0-100.0); MEAN PLATELET VOLUME 9.9 fL (7.4-10.4); MONOCYTES 3.8 % (2-11); NEUTROPHILS 86.7 % (40-80); PLATELET COUNT 188 10x3/uL (130-400); RBC 3.08 10x6/uL (4.00-5.40); RDW 16.9 % (11.5-14.5); WBC 23.3 10x3/uL (4.8-10.8)
[2017-07-03] VITALS (25 sets, daily range): BP systolic 88–124; BP diastolic 58–84
[2017-07-03 05:18] LABS: BASOPHILS 0.1 % (0-2); EOSINOPHILS 0 % (0-7); HEMATOCRIT 26.6 % (36.0-48.0); IMMATURE GRANULOCYTES 5.9 % (0-5); LYMPHOCYTES 2.2 % (15-50); MCH 28.1 pg (26.0-34.0); MCHC 30.1 g/dL (31.0-37.0); MCV 93.3 fL (80.0-100.0); MEAN PLATELET VOLUME 9.9 fL (7.4-10.4); MONOCYTES 2.8 % (2-11); PLATELET COUNT 196 10x3/uL (130-400); RBC 2.85 10x6/uL (4.00-5.40); WBC 18.7 10x3/uL (4.8-10.8)
[2017-07-03 05:38] LABS: ALBUMIN 1.6 g/dL (3.4-5.0); ALKALINE PHOSPHATASE 57 U/L (46-116); CALC OSMOLALITY 284 mosm/kg (275-300); CALCIUM 6.5 mg/dL (8.5-10.1); CARBON DIOXIDE 36.4 mmol/L (21.0-32.0); CHLORIDE - SERUM 105 mmol/L (98-107); CREATININE - SERUM 0.1 mg/dL (0.6-1.3); GLUCOSE 121 mg/dL (74-106); MAGNESIUM - SERUM 1.6 mg/dL (1.8-2.4); POTASSIUM - SERUM 3.8 mmol/L (3.5-5.1); PROTEIN - SERUM 4.3 g/dL (6.4-8.2); SODIUM 142 mmol/L (136-145); UREA NITROGEN 14 mg/dL (7-18); eGFR NON AFRICAN AMERICAN > 90 mL/min (90-120)
[2017-07-03 05:39] LABS: ALT (SGPT) 131 U/L (10-68)
[2017-07-03 06:47] LABS: % SATURATION 16 % (15-55); IRON 27 ug/dl (35-150); TOTAL IRON BIND CAPACITY 161 ug/dl (260-445); UNSAT IRON BIND CAPACITY 134 ug/dl (150-375)
[2017-07-04] VITALS (24 sets, daily range): BP systolic 85–122; BP diastolic 56–80
[2017-07-04 04:59] LABS: BASOPHILS 0.1 % (0-2); EOSINOPHILS 0 % (0-7); HEMATOCRIT 29.3 % (36.0-48.0); HEMOGLOBIN 8.9 g/dL (12-16); IMMATURE GRANULOCYTES 7.2 % (0-5); LYMPHOCYTES 2.5 % (15-50); MCH 28.7 pg (26.0-34.0); MCHC 30.4 g/dL (31.0-37.0); MCV 94.5 fL (80.0-100.0); MEAN PLATELET VOLUME 10.1 fL (7.4-10.4); MONOCYTES 2.7 % (2-11); NEUTROPHILS 87.5 % (40-80); RDW 17.2 % (11.5-14.5); WBC 16.2 10x3/uL (4.8-10.8)
[2017-07-04 05:07] LABS: PLATELET COUNT 258 10x3/uL (130-400)
[2017-07-04 05:29] LABS: CALC OSMOLALITY 282 mosm/kg (275-300); CALCIUM 7.2 mg/dL (8.5-10.1); CHLORIDE - SERUM 102 mmol/L (98-107); GLUCOSE 127 mg/dL (74-106); MAGNESIUM - SERUM 1.9 mg/dL (1.8-2.4); PHOSPHOROUS 2.6 mg/dL (2.5-4.9); POTASSIUM - SERUM 4.2 mmol/L (3.5-5.1); SODIUM 141 mmol/L (136-145); UREA NITROGEN 13 mg/dL (7-18)
[2017-07-04 05:31] LABS: CREATININE - SERUM 0.2 mg/dL (0.6-1.3); eGFR NON AFRICAN AMERICAN > 90 mL/min (90-120)
[2017-07-04 08:20] LABS: FOLATE (FOLIC ACID) - SERUM 8.4 ng/mL (>3.0)
[2017-07-05] VITALS (26 sets, daily range): BP systolic 90–119; BP diastolic 60–80
[2017-07-05 05:29] LABS: BASOPHILS 0.1 % (0-2); EOSINOPHILS 0.1 % (0-7); HEMATOCRIT 28.6 % (36.0-48.0); HEMOGLOBIN 8.7 g/dL (12-16); IMMATURE GRANULOCYTES 3.2 % (0-5); LYMPHOCYTES 6.5 % (15-50); MCH 28.1 pg (26.0-34.0); MCHC 30.4 g/dL (31.0-37.0); MCV 92.3 fL (80.0-100.0); MEAN PLATELET VOLUME 9.7 fL (7.4-10.4); MONOCYTES 2.9 % (2-11); NEUTROPHILS 87.2 % (40-80); PLATELET COUNT 273 10x3/uL (130-400); RDW 17.6 % (11.5-14.5); WBC 13.6 10x3/uL (4.8-10.8)
[2017-07-05 06:06] LABS: CALC OSMOLALITY 282 mosm/kg (275-300); CALCIUM 7.9 mg/dL (8.5-10.1); CARBON DIOXIDE 38.8 mmol/L (21.0-32.0); CHLORIDE - SERUM 103 mmol/L (98-107); CREATININE - SERUM 0.2 mg/dL (0.6-1.3); GLUCOSE 87 mg/dL (74-106); PHOSPHOROUS 2.8 mg/dL (2.5-4.9); SODIUM 142 mmol/L (136-145); UREA NITROGEN 15 mg/dL (7-18); eGFR NON AFRICAN AMERICAN > 90 mL/min (90-120)
[2017-07-05 06:22] LABS: POTASSIUM - SERUM 3.4 mmol/L (3.5-5.1)
[2017-07-06] VITALS (31 sets, daily range): BP systolic 81–152; BP diastolic 44–86
[2017-07-06 03:56] LABS: BASOPHILS 0.1 % (0-2); EOSINOPHILS 0.1 % (0-7); HEMATOCRIT 28.4 % (36.0-48.0); HEMOGLOBIN 8.7 g/dL (12-16); IMMATURE GRANULOCYTES 1.3 % (0-5); LYMPHOCYTES 3.3 % (15-50); MCH 28.2 pg (26.0-34.0); MCHC 30.6 g/dL (31.0-37.0); MCV 91.9 fL (80.0-100.0); MEAN PLATELET VOLUME 9.5 fL (7.4-10.4); MONOCYTES 2.4 % (2-11); NEUTROPHILS 92.8 % (40-80); PLATELET COUNT 284 10x3/uL (130-400); RBC 3.09 10x6/uL (4.00-5.40); RDW 18.1 % (11.5-14.5); WBC 13.5 10x3/uL (4.8-10.8)
[2017-07-06 04:13] LABS: CALC OSMOLALITY 281 mosm/kg (275-300); CALCIUM 8.1 mg/dL (8.5-10.1); CARBON DIOXIDE 32.4 mmol/L (21.0-32.0); CHLORIDE - SERUM 106 mmol/L (98-107); CREATININE - SERUM 0.2 mg/dL (0.6-1.3); GLUCOSE 96 mg/dL (74-106); MAGNESIUM - SERUM 1.9 mg/dL (1.8-2.4); POTASSIUM - SERUM 3.8 mmol/L (3.5-5.1); SODIUM 142 mmol/L (136-145); eGFR NON AFRICAN AMERICAN > 90 mL/min (90-120)
[2017-07-06 04:16] LABS: UREA NITROGEN 11 mg/dL (7-18)
[2017-07-07] VITALS (29 sets, daily range): BP systolic 82–134; BP diastolic 42–95
[2017-07-07 05:13] LABS: BASOPHILS 0.1 % (0-2); EOSINOPHILS 0.2 % (0-7); HEMOGLOBIN 8.8 g/dL (12-16); IMMATURE GRANULOCYTES 1.1 % (0-5); MCH 28.2 pg (26.0-34.0); MCHC 30.3 g/dL (31.0-37.0); MCV 92.9 fL (80.0-100.0); MEAN PLATELET VOLUME 9.7 fL (7.4-10.4); MONOCYTES 2.7 % (2-11); NEUTROPHILS 90.9 % (40-80); PLATELET COUNT 278 10x3/uL (130-400); RBC 3.12 10x6/uL (4.00-5.40); RDW 18.6 % (11.5-14.5)
[2017-07-07 05:30] LABS: WBC 18.7 10x3/uL (4.8-10.8)
[2017-07-07 05:32] LABS: CALC OSMOLALITY 286 mosm/kg (275-300); CALCIUM 8.1 mg/dL (8.5-10.1); CARBON DIOXIDE 31.1 mmol/L (21.0-32.0); CHLORIDE - SERUM 106 mmol/L (98-107); CREATININE - SERUM 0.2 mg/dL (0.6-1.3); GLUCOSE 123 mg/dL (74-106); MAGNESIUM - SERUM 1.7 mg/dL (1.8-2.4); SODIUM 144 mmol/L (136-145); UREA NITROGEN 9 mg/dL (7-18); eGFR NON AFRICAN AMERICAN > 90 mL/min (90-120)
[2017-07-07 05:34] LABS: POTASSIUM - SERUM 2.9 mmol/L (3.5-5.1)
[2017-07-08] VITALS (24 sets, daily range): BP systolic 78–140; BP diastolic 43–93
[2017-07-08 04:56] LABS: BASOPHILS 0.1 % (0-2); EOSINOPHILS 0 % (0-7); IMMATURE GRANULOCYTES 0.6 % (0-5); MCH 28.7 pg (26.0-34.0); MCHC 31.1 g/dL (31.0-37.0); MCV 92.4 fL (80.0-100.0); MEAN PLATELET VOLUME 9.9 fL (7.4-10.4); MONOCYTES 1.8 % (2-11); NEUTROPHILS 94.5 % (40-80); PLATELET COUNT 227 10x3/uL (130-400); RDW 18.9 % (11.5-14.5)
[2017-07-08 04:57] LABS: RBC 2.37 10x6/uL (4.00-5.40); WBC 7.8 10x3/uL (4.8-10.8)
[2017-07-08 04:59] LABS: HEMATOCRIT 21.9 % (36.0-48.0); HEMOGLOBIN 6.8 g/dL (12-16)
[2017-07-08 05:20] LABS: ALBUMIN 1.6 g/dL (3.4-5.0); ALKALINE PHOSPHATASE 76 U/L (46-116); ALT (SGPT) 112 U/L (10-68); BILIRUBIN - TOTAL 0.33 mg/dL (0.2-1.3); CALC OSMOLALITY 281 mosm/kg (275-300); CARBON DIOXIDE 27.8 mmol/L (21.0-32.0); CHLORIDE - SERUM 106 mmol/L (98-107); CREATININE - SERUM 0.2 mg/dL (0.6-1.3); MAGNESIUM - SERUM 1.7 mg/dL (1.8-2.4); POTASSIUM - SERUM 3.4 mmol/L (3.5-5.1); PROTEIN - SERUM 4.4 g/dL (6.4-8.2); SODIUM 139 mmol/L (136-145); UREA NITROGEN 11 mg/dL (7-18); eGFR NON AFRICAN AMERICAN > 90 mL/min (90-120)
[2017-07-08 05:21] LABS: GLUCOSE 187 mg/dL (74-106)
[2017-07-08 10:01] LABS: APTT 30.6 SECONDS (22.8-39.4); INR 1.08 (0.85-1.17); PROTIME 13.6 SECONDS (11.6-15.0)
[2017-07-08 10:42] LABS: BASOPHILS 0.1 % (0-2); EOSINOPHILS 0.2 % (0-7); IMMATURE GRANULOCYTES 0.8 % (0-5); LYMPHOCYTES 4.9 % (15-50); MCH 28.8 pg (26.0-34.0); MCHC 30.8 g/dL (31.0-37.0); MCV 93.4 fL (80.0-100.0); MONOCYTES 4.5 % (2-11); NEUTROPHILS 89.5 % (40-80); PLATELET COUNT 253 10x3/uL (130-400); RBC 2.57 10x6/uL (4.00-5.40); RDW 18.7 % (11.5-14.5); WBC 9.1 10x3/uL (4.8-10.8)
[2017-07-08 10:46] LABS: HEMOGLOBIN 7.4 g/dL (12-16)
[2017-07-08 22:54] LABS: CKMB 0.3 U/L (0.0-3.6); CREATINE KINASE 11 UL (21-215); TROPONIN-I < 0.017 ng/mL (0.000-0.060)
[2017-07-09] VITALS (22 sets, daily range): BP systolic 89–132; BP diastolic 64–97
[2017-07-09 05:20] LABS: BASOPHILS 0.1 % (0-2); EOSINOPHILS 0 % (0-7); IMMATURE GRANULOCYTES 0.8 % (0-5); LYMPHOCYTES 3.2 % (15-50); MCH 29.2 pg (26.0-34.0); MCHC 32.1 g/dL (31.0-37.0); MONOCYTES 6.2 % (2-11); NEUTROPHILS 89.7 % (40-80); PLATELET COUNT 242 10x3/uL (130-400); RDW 17.6 % (11.5-14.5)
[2017-07-09 05:23] LABS: HEMATOCRIT 41.1 % (36.0-48.0); HEMOGLOBIN 13.2 g/dL (12-16); RBC 4.52 10x6/uL (4.00-5.40); WBC 17.8 10x3/uL (4.8-10.8)
[2017-07-09 05:24] LABS: MCV 90.9 fL (80.0-100.0)
[2017-07-09 06:06] LABS: ALKALINE PHOSPHATASE 98 U/L (46-116); ALT (SGPT) 98 U/L (10-68); BILIRUBIN - TOTAL 0.66 mg/dL (0.2-1.3); CALC OSMOLALITY 279 mosm/kg (275-300); CALCIUM 8.5 mg/dL (8.5-10.1); CARBON DIOXIDE 27.6 mmol/L (21.0-32.0); CHLORIDE - SERUM 104 mmol/L (98-107); CREATININE - SERUM 0.2 mg/dL (0.6-1.3); GLUCOSE 108 mg/dL (74-106); MAGNESIUM - SERUM 2.1 mg/dL (1.8-2.4); POTASSIUM - SERUM 4.1 mmol/L (3.5-5.1); SODIUM 140 mmol/L (136-145); UREA NITROGEN 12 mg/dL (7-18); eGFR NON AFRICAN AMERICAN > 90 mL/min (90-120)
[2017-07-09 06:07] LABS: ALBUMIN 2.8 g/dL (3.4-5.0); PROTEIN - SERUM 5.7 g/dL (6.4-8.2)
[2017-07-10] VITALS (24 sets, daily range): BP systolic 85–120; BP diastolic 52–85
[2017-07-10 05:08] LABS: BASOPHILS 0.1 % (0-2); EOSINOPHILS 0 % (0-7); HEMATOCRIT 41.5 % (36.0-48.0); HEMOGLOBIN 13.3 g/dL (12-16); IMMATURE GRANULOCYTES 1.6 % (0-5); LYMPHOCYTES 4.3 % (15-50); MCH 29.2 pg (26.0-34.0); MEAN PLATELET VOLUME 10.4 fL (7.4-10.4); MONOCYTES 8.1 % (2-11); NEUTROPHILS 85.9 % (40-80); PLATELET COUNT 251 10x3/uL (130-400); RBC 4.56 10x6/uL (4.00-5.40); RDW 18.3 % (11.5-14.5)
[2017-07-10 05:13] LABS: WBC 12.8 10x3/uL (4.8-10.8)
[2017-07-10 05:26] LABS: APTT 23.2 SECONDS (22.8-39.4); INR 1.05 (0.85-1.17); PROTIME 13.3 SECONDS (11.6-15.0)
[2017-07-10 05:35] LABS: ALBUMIN 3.1 g/dL (3.4-5.0); ALKALINE PHOSPHATASE 114 U/L (46-116); BILIRUBIN - TOTAL 0.79 mg/dL (0.2-1.3); CALC OSMOLALITY 285 mosm/kg (275-300); CALCIUM 8.4 mg/dL (8.5-10.1); CARBON DIOXIDE 24.9 mmol/L (21.0-32.0); CHLORIDE - SERUM 107 mmol/L (98-107); CREATININE - SERUM 0.2 mg/dL (0.6-1.3); GLUCOSE 126 mg/dL (74-106); PROTEIN - SERUM 5.9 g/dL (6.4-8.2); SODIUM 142 mmol/L (136-145); UREA NITROGEN 14 mg/dL (7-18); eGFR NON AFRICAN AMERICAN > 90 mL/min (90-120)
[2017-07-10 05:36] LABS: ALT (SGPT) 123 U/L (10-68)
[2017-07-11] VITALS (24 sets, daily range): BP systolic 85–113; BP diastolic 54–87
[2017-07-11 04:23] LABS: HEMATOCRIT 33.2 % (36.0-48.0); HEMOGLOBIN 10.7 g/dL (12-16); LYMPHOCYTES 3.5 % (15-50); MCH 29.3 pg (26.0-34.0); MCHC 32.2 g/dL (31.0-37.0); MEAN PLATELET VOLUME 10.1 fL (7.4-10.4); NEUTROPHILS 90.5 % (40-80); PLATELET COUNT 208 10x3/uL (130-400); RBC 3.65 10x6/uL (4.00-5.40); RDW 18.5 % (11.5-14.5)
[2017-07-11 04:35] LABS: WBC 7.6 10x3/uL (4.8-10.8)
[2017-07-11 04:55] LABS: ALBUMIN 2.9 g/dL (3.4-5.0); ALKALINE PHOSPHATASE 84 U/L (46-116); ALT (SGPT) 108 U/L (10-68); BILIRUBIN - TOTAL 0.76 mg/dL (0.2-1.3); CALC OSMOLALITY 283 mosm/kg (275-300); CALCIUM 8.2 mg/dL (8.5-10.1); CARBON DIOXIDE 25.3 mmol/L (21.0-32.0); CHLORIDE - SERUM 107 mmol/L (98-107); CREATININE - SERUM 0.2 mg/dL (0.6-1.3); GLUCOSE 134 mg/dL (74-106); POTASSIUM - SERUM 3.4 mmol/L (3.5-5.1); PROTEIN - SERUM 5.6 g/dL (6.4-8.2); SODIUM 141 mmol/L (136-145); UREA NITROGEN 15 mg/dL (7-18); eGFR NON AFRICAN AMERICAN > 90 mL/min (90-120)
[2017-07-12] VITALS (24 sets, daily range): BP systolic 83–115; BP diastolic 55–90
[2017-07-12 04:33] LABS: BASOPHILS 0.9 % (0-2); EOSINOPHILS 0 % (0-7); HEMATOCRIT 32.2 % (36.0-48.0); HEMOGLOBIN 10.1 g/dL (12-16); IMMATURE GRANULOCYTES 0.6 % (0-5); LYMPHOCYTES 2.7 % (15-50); MCH 28.6 pg (26.0-34.0); MCHC 31.4 g/dL (31.0-37.0); MCV 91.2 fL (80.0-100.0); MEAN PLATELET VOLUME 10.6 fL (7.4-10.4); MONOCYTES 4.2 % (2-11); NEUTROPHILS 91.6 % (40-80); PLATELET COUNT 214 10x3/uL (130-400); RBC 3.53 10x6/uL (4.00-5.40); RDW 18.1 % (11.5-14.5); WBC 9.4 10x3/uL (4.8-10.8)
[2017-07-12 05:04] LABS: ALKALINE PHOSPHATASE 79 U/L (46-116); ALT (SGPT) 124 U/L (10-68); BILIRUBIN - TOTAL 1.05 mg/dL (0.2-1.3); CALC OSMOLALITY 282 mosm/kg (275-300); CALCIUM 8.3 mg/dL (8.5-10.1); CHLORIDE - SERUM 107 mmol/L (98-107); CREATININE - SERUM 0.2 mg/dL (0.6-1.3); GLUCOSE 127 mg/dL (74-106); POTASSIUM - SERUM 3.4 mmol/L (3.5-5.1); PROTEIN - SERUM 5.6 g/dL (6.4-8.2); SODIUM 141 mmol/L (136-145); UREA NITROGEN 12 mg/dL (7-18); eGFR NON AFRICAN AMERICAN > 90 mL/min (90-120)
[2017-07-13] VITALS (24 sets, daily range): BP systolic 96–129; BP diastolic 65–94
[2017-07-13 04:33] LABS: BASOPHILS 0 % (0-2); EOSINOPHILS 0.1 % (0-7); HEMATOCRIT 31.9 % (36.0-48.0); MCHC 31.3 g/dL (31.0-37.0); MCV 92.5 fL (80.0-100.0); MEAN PLATELET VOLUME 10.7 fL (7.4-10.4); MONOCYTES 3.1 % (2-11); NEUTROPHILS 91.8 % (40-80); PLATELET COUNT 195 10x3/uL (130-400); RBC 3.45 10x6/uL (4.00-5.40); RDW 18.5 % (11.5-14.5)
[2017-07-13 04:43] LABS: WBC 6.8 10x3/uL (4.8-10.8)
[2017-07-13 04:47] LABS: ALBUMIN 3.2 g/dL (3.4-5.0); ALKALINE PHOSPHATASE 78 U/L (46-116); ALT (SGPT) 108 U/L (10-68); BILIRUBIN - TOTAL 0.73 mg/dL (0.2-1.3); CALC OSMOLALITY 283 mosm/kg (275-300); CALCIUM 8.8 mg/dL (8.5-10.1); CARBON DIOXIDE 24.3 mmol/L (21.0-32.0); CHLORIDE - SERUM 108 mmol/L (98-107); CREATININE - SERUM 0.2 mg/dL (0.6-1.3); GLUCOSE 106 mg/dL (74-106); POTASSIUM - SERUM 3.6 mmol/L (3.5-5.1); PROTEIN - SERUM 5.8 g/dL (6.4-8.2); SODIUM 143 mmol/L (136-145); UREA NITROGEN 10 mg/dL (7-18); eGFR NON AFRICAN AMERICAN > 90 mL/min (90-120)
[2017-07-14] VITALS (24 sets, daily range): BP systolic 79–117; BP diastolic 64–99
[2017-07-14 03:09] LABS: BASOPHILS 0.2 % (0-2); EOSINOPHILS 0 % (0-7); HEMATOCRIT 33.6 % (36.0-48.0); HEMOGLOBIN 10.5 g/dL (12-16); IMMATURE GRANULOCYTES 1.1 % (0-5); LYMPHOCYTES 6.6 % (15-50); MCH 29.4 pg (26.0-34.0); MCHC 31.3 g/dL (31.0-37.0); MCV 94.1 fL (80.0-100.0); MEAN PLATELET VOLUME 10.2 fL (7.4-10.4); NEUTROPHILS 89.1 % (40-80); PLATELET COUNT 180 10x3/uL (130-400); RBC 3.57 10x6/uL (4.00-5.40); RDW 18.6 % (11.5-14.5); WBC 5.4 10x3/uL (4.8-10.8)
[2017-07-14 03:24] LABS: ALBUMIN 3.4 g/dL (3.4-5.0); ALKALINE PHOSPHATASE 76 U/L (46-116); ALT (SGPT) 92 U/L (10-68); BILIRUBIN - TOTAL 0.64 mg/dL (0.2-1.3); CALC OSMOLALITY 280 mosm/kg (275-300); CALCIUM 8.6 mg/dL (8.5-10.1); CARBON DIOXIDE 21.1 mmol/L (21.0-32.0); CHLORIDE - SERUM 106 mmol/L (98-107); CREATININE - SERUM 0.2 mg/dL (0.6-1.3); GLUCOSE 123 mg/dL (74-106); POTASSIUM - SERUM 3.3 mmol/L (3.5-5.1); PROTEIN - SERUM 5.6 g/dL (6.4-8.2); SODIUM 141 mmol/L (136-145); UREA NITROGEN 9 mg/dL (7-18); eGFR NON AFRICAN AMERICAN > 90 mL/min (90-120)
[2017-07-15] VITALS (24 sets, daily range): BP systolic 82–124; BP diastolic 52–90
[2017-07-15 03:53] LABS: BASOPHILS 0 % (0-2); EOSINOPHILS 0.6 % (0-7); HEMATOCRIT 33.6 % (36.0-48.0); HEMOGLOBIN 10.5 g/dL (12-16); IMMATURE GRANULOCYTES 1.3 % (0-5); LYMPHOCYTES 9.3 % (15-50); MCHC 31.3 g/dL (31.0-37.0); MCV 92.8 fL (80.0-100.0); MEAN PLATELET VOLUME 10.2 fL (7.4-10.4); MONOCYTES 3.3 % (2-11); NEUTROPHILS 85.5 % (40-80); PLATELET COUNT 193 10x3/uL (130-400); RBC 3.62 10x6/uL (4.00-5.40); RDW 18.7 % (11.5-14.5); WBC 6.7 10x3/uL (4.8-10.8)
[2017-07-15 04:11] LABS: ALBUMIN 3.4 g/dL (3.4-5.0); ALKALINE PHOSPHATASE 65 U/L (46-116); CALC OSMOLALITY 277 mosm/kg (275-300); CALCIUM 8.9 mg/dL (8.5-10.1); CARBON DIOXIDE 20.9 mmol/L (21.0-32.0); CHLORIDE - SERUM 106 mmol/L (98-107); CREATININE - SERUM 0.2 mg/dL (0.6-1.3); GLUCOSE 91 mg/dL (74-106); PROTEIN - SERUM 5.5 g/dL (6.4-8.2); SODIUM 140 mmol/L (136-145); UREA NITROGEN 10 mg/dL (7-18); eGFR NON AFRICAN AMERICAN > 90 mL/min (90-120)
[2017-07-15 04:22] LABS: ALT (SGPT) 65 U/L (10-68); POTASSIUM - SERUM 3.3 mmol/L (3.5-5.1)
[2017-07-16] VITALS (24 sets, daily range): BP systolic 90–131; BP diastolic 63–89
[2017-07-16 03:31] LABS: BASOPHILS 0.1 % (0-2); EOSINOPHILS 1.3 % (0-7); HEMATOCRIT 31.8 % (36.0-48.0); HEMOGLOBIN 9.8 g/dL (12-16); IMMATURE GRANULOCYTES 1.6 % (0-5); LYMPHOCYTES 5.1 % (15-50); MCH 29.1 pg (26.0-34.0); MCHC 30.8 g/dL (31.0-37.0); MCV 94.4 fL (80.0-100.0); MEAN PLATELET VOLUME 10.4 fL (7.4-10.4); MONOCYTES 2.1 % (2-11); NEUTROPHILS 89.8 % (40-80); RBC 3.37 10x6/uL (4.00-5.40); RDW 18.7 % (11.5-14.5); WBC 6.8 10x3/uL (4.8-10.8)
[2017-07-16 03:33] LABS: PLATELET COUNT 136 10x3/uL (130-400)
[2017-07-16 03:45] LABS: CALC OSMOLALITY 275 mosm/kg (275-300); CALCIUM 8.3 mg/dL (8.5-10.1); CARBON DIOXIDE 20.7 mmol/L (21.0-32.0); CHLORIDE - SERUM 106 mmol/L (98-107); CREATININE - SERUM 0.1 mg/dL (0.6-1.3); GLUCOSE 87 mg/dL (74-106); POTASSIUM - SERUM 3.4 mmol/L (3.5-5.1); SODIUM 140 mmol/L (136-145); UREA NITROGEN 8 mg/dL (7-18); eGFR NON AFRICAN AMERICAN > 90 mL/min (90-120)
[2017-07-17] VITALS (22 sets, daily range): BP systolic 80–138; BP diastolic 50–83
[2017-07-17 04:01] LABS: BASOPHILS 0 % (0-2); EOSINOPHILS 0 % (0-7); HEMATOCRIT 30.8 % (36.0-48.0); HEMOGLOBIN 9.7 g/dL (12-16); IMMATURE GRANULOCYTES 0.8 % (0-5); LYMPHOCYTES 4.9 % (15-50); MCH 29.1 pg (26.0-34.0); MCHC 31.5 g/dL (31.0-37.0); MCV 92.5 fL (80.0-100.0); MEAN PLATELET VOLUME 9.7 fL (7.4-10.4); MONOCYTES 3.4 % (2-11); NEUTROPHILS 90.9 % (40-80); RBC 3.33 10x6/uL (4.00-5.40); RDW 18.4 % (11.5-14.5)
[2017-07-17 04:10] LABS: CALC OSMOLALITY 276 mosm/kg (275-300); CARBON DIOXIDE 21.7 mmol/L (21.0-32.0); CHLORIDE - SERUM 105 mmol/L (98-107); GLUCOSE 90 mg/dL (74-106); POTASSIUM - SERUM 3.8 mmol/L (3.5-5.1); SODIUM 140 mmol/L (136-145); UREA NITROGEN 6 mg/dL (7-18)
[2017-07-17 04:14] LABS: CREATININE - SERUM 0.2 mg/dL (0.6-1.3); eGFR NON AFRICAN AMERICAN > 90 mL/min (90-120)
[2017-07-17 04:15] LABS: PLATELET COUNT 177 10x3/uL (130-400)
[2017-07-18] VITALS (24 sets, daily range): BP systolic 74–141; BP diastolic 54–97
[2017-07-18 04:02] LABS: BASOPHILS 0 % (0-2); EOSINOPHILS 0 % (0-7); HEMATOCRIT 32.9 % (36.0-48.0); HEMOGLOBIN 10.4 g/dL (12-16); IMMATURE GRANULOCYTES 0.5 % (0-5); LYMPHOCYTES 3.4 % (15-50); MCH 29.3 pg (26.0-34.0); MCHC 31.6 g/dL (31.0-37.0); MCV 92.7 fL (80.0-100.0); MONOCYTES 2.2 % (2-11); NEUTROPHILS 93.9 % (40-80); RBC 3.55 10x6/uL (4.00-5.40); RDW 18.7 % (11.5-14.5)
[2017-07-18 04:21] LABS: PLATELET COUNT 340 10x3/uL (130-400); WBC 11.2 10x3/uL (4.8-10.8)
[2017-07-18 04:27] LABS: ALBUMIN 3.4 g/dL (3.4-5.0); CALC OSMOLALITY 277 mosm/kg (275-300); CALCIUM 8.3 mg/dL (8.5-10.1); CARBON DIOXIDE 23.3 mmol/L (21.0-32.0); CHLORIDE - SERUM 103 mmol/L (98-107); GLUCOSE 90 mg/dL (74-106); MAGNESIUM - SERUM 1.3 mg/dL (1.8-2.4); PHOSPHOROUS 3.3 mg/dL (2.5-4.9); SODIUM 141 mmol/L (136-145); UREA NITROGEN 5 mg/dL (7-18)
[2017-07-18 04:28] LABS: CREATININE - SERUM 0.3 mg/dL (0.6-1.3); POTASSIUM - SERUM 2.9 mmol/L (3.5-5.1); eGFR NON AFRICAN AMERICAN > 90 mL/min (90-120)
[2017-07-18 15:22] LABS: POTASSIUM - SERUM 3.6 mmol/L (3.5-5.1)
[2017-07-18 20:09] LABS: AFB SPECIMEN PROCESSING Concentration (())
[2017-07-19] VITALS (26 sets, daily range): BP systolic 92–140; BP diastolic 64–97
[2017-07-19 03:31] LABS: BASOPHILS 0.2 % (0-2); EOSINOPHILS 0.3 % (0-7); HEMATOCRIT 30.9 % (36.0-48.0); IMMATURE GRANULOCYTES 0.9 % (0-5); LYMPHOCYTES 7.3 % (15-50); MCH 29.8 pg (26.0-34.0); MCHC 32.4 g/dL (31.0-37.0); MEAN PLATELET VOLUME 9.7 fL (7.4-10.4); MONOCYTES 3.3 % (2-11); RBC 3.36 10x6/uL (4.00-5.40); RDW 19.1 % (11.5-14.5)
[2017-07-19 03:32] LABS: PLATELET COUNT 192 10x3/uL (130-400); WBC 6.5 10x3/uL (4.8-10.8)
[2017-07-19 03:41] LABS: CALC OSMOLALITY 275 mosm/kg (275-300); CALCIUM 8.7 mg/dL (8.5-10.1); CARBON DIOXIDE 24.7 mmol/L (21.0-32.0); CHLORIDE - SERUM 102 mmol/L (98-107); CREATININE - SERUM 0.3 mg/dL (0.6-1.3); GLUCOSE 94 mg/dL (74-106); SODIUM 140 mmol/L (136-145); UREA NITROGEN 5 mg/dL (7-18); eGFR NON AFRICAN AMERICAN > 90 mL/min (90-120)
[2017-07-19 03:44] LABS: POTASSIUM - SERUM 2.9 mmol/L (3.5-5.1)
[2017-07-19 06:42] LABS: MAGNESIUM - SERUM 2.1 mg/dL (1.8-2.4); PHOSPHOROUS 2.9 mg/dL (2.5-4.9)
[2017-07-20] VITALS (24 sets, daily range): BP systolic 98–197; BP diastolic 62–95
[2017-07-20 04:02] LABS: BASOPHILS 0 % (0-2); EOSINOPHILS 0.7 % (0-7); HEMATOCRIT 29.7 % (36.0-48.0); HEMOGLOBIN 9.3 g/dL (12-16); IMMATURE GRANULOCYTES 1.3 % (0-5); LYMPHOCYTES 8.5 % (15-50); MCH 28.7 pg (26.0-34.0); MCHC 31.3 g/dL (31.0-37.0); MCV 91.7 fL (80.0-100.0); MEAN PLATELET VOLUME 9.5 fL (7.4-10.4); MONOCYTES 3.6 % (2-11); NEUTROPHILS 85.9 % (40-80); PLATELET COUNT 230 10x3/uL (130-400); RBC 3.24 10x6/uL (4.00-5.40); RDW 18.7 % (11.5-14.5)
[2017-07-20 04:03] LABS: CALC OSMOLALITY 274 mosm/kg (275-300); CALCIUM 8.2 mg/dL (8.5-10.1); CARBON DIOXIDE 30.3 mmol/L (21.0-32.0); CHLORIDE - SERUM 102 mmol/L (98-107); CREATININE - SERUM 0.3 mg/dL (0.6-1.3); GLUCOSE 92 mg/dL (74-106); SODIUM 139 mmol/L (136-145); UREA NITROGEN 4 mg/dL (7-18); eGFR NON AFRICAN AMERICAN > 90 mL/min (90-120)
[2017-07-20 04:04] LABS: WBC 4.5 10x3/uL (4.8-10.8)
[2017-07-20 04:06] LABS: POTASSIUM - SERUM 2.9 mmol/L (3.5-5.1)
[2017-07-21] VITALS (23 sets, daily range): BP systolic 97–156; BP diastolic 67–99
[2017-07-21 04:58] LABS: BASOPHILS 0.3 % (0-2); EOSINOPHILS 0.3 % (0-7); HEMOGLOBIN 10.9 g/dL (12-16); IMMATURE GRANULOCYTES 4.3 % (0-5); LYMPHOCYTES 8.3 % (15-50); MCH 29.1 pg (26.0-34.0); MCHC 31.1 g/dL (31.0-37.0); MCV 93.3 fL (80.0-100.0); MEAN PLATELET VOLUME 9.4 fL (7.4-10.4); MONOCYTES 5.2 % (2-11); NEUTROPHILS 81.6 % (40-80); RBC 3.75 10x6/uL (4.00-5.40); RDW 18.2 % (11.5-14.5)
[2017-07-21 05:03] LABS: PLATELET COUNT 327 10x3/uL (130-400)
[2017-07-21 05:20] LABS: CALC OSMOLALITY 272 mosm/kg (275-300); CARBON DIOXIDE 32.6 mmol/L (21.0-32.0); CHLORIDE - SERUM 100 mmol/L (98-107); CREATININE - SERUM 0.3 mg/dL (0.6-1.3); GLUCOSE 97 mg/dL (74-106); SODIUM 138 mmol/L (136-145); UREA NITROGEN 5 mg/dL (7-18); eGFR NON AFRICAN AMERICAN > 90 mL/min (90-120)
[2017-07-21 05:25] LABS: POTASSIUM - SERUM 3.3 mmol/L (3.5-5.1)
[2017-07-21 19:11] LABS: FUNGUS STAIN Final report (())
[2017-07-22] VITALS (24 sets, daily range): BP systolic 84–147; BP diastolic 56–87
[2017-07-22 03:59] LABS: BASOPHILS 0.2 % (0-2); EOSINOPHILS 0.5 % (0-7); HEMATOCRIT 34.6 % (36.0-48.0); HEMOGLOBIN 10.7 g/dL (12-16); IMMATURE GRANULOCYTES 4.3 % (0-5); MCHC 30.9 g/dL (31.0-37.0); MCV 93.8 fL (80.0-100.0); MEAN PLATELET VOLUME 8.9 fL (7.4-10.4); MONOCYTES 6.2 % (2-11); NEUTROPHILS 78.8 % (40-80); PLATELET COUNT 322 10x3/uL (130-400); RBC 3.69 10x6/uL (4.00-5.40); RDW 18.1 % (11.5-14.5); WBC 6.1 10x3/uL (4.8-10.8)
[2017-07-22 04:19] LABS: ALBUMIN 2.9 g/dL (3.4-5.0); ALKALINE PHOSPHATASE 61 U/L (46-116); ALT (SGPT) 20 U/L (10-68); BILIRUBIN - DIRECT 0.31 mg/dL (0.00-0.30); BILIRUBIN - INDIRECT 0.49 mg/dL (0.00-1.00); CALC OSMOLALITY 294 mosm/kg (275-300); CALCIUM 8.2 mg/dL (8.5-10.1); CARBON DIOXIDE 36.7 mmol/L (21.0-32.0); CHLORIDE - SERUM 92 mmol/L (98-107); CREATININE - SERUM 0.2 mg/dL (0.6-1.3); GLUCOSE 85 mg/dL (74-106); MAGNESIUM - SERUM 1.4 mg/dL (1.8-2.4); PHOSPHOROUS 2.9 mg/dL (2.5-4.9); POTASSIUM - SERUM 3.1 mmol/L (3.5-5.1); PROTEIN - SERUM 5.7 g/dL (6.4-8.2); SODIUM 150 mmol/L (136-145); UREA NITROGEN 6 mg/dL (7-18); eGFR NON AFRICAN AMERICAN > 90 mL/min (90-120)
[2017-07-23] VITALS (25 sets, daily range): BP systolic 89–148; BP diastolic 63–94
[2017-07-23 04:25] LABS: BASOPHILS 0.2 % (0-2); EOSINOPHILS 0.2 % (0-7); HEMATOCRIT 34.4 % (36.0-48.0); HEMOGLOBIN 10.5 g/dL (12-16); IMMATURE GRANULOCYTES 3.5 % (0-5); LYMPHOCYTES 9.1 % (15-50); MCH 28.6 pg (26.0-34.0); MCHC 30.5 g/dL (31.0-37.0); MCV 93.7 fL (80.0-100.0); MEAN PLATELET VOLUME 8.7 fL (7.4-10.4); MONOCYTES 7.4 % (2-11); NEUTROPHILS 79.6 % (40-80); PLATELET COUNT 315 10x3/uL (130-400); RBC 3.67 10x6/uL (4.00-5.40); WBC 6.3 10x3/uL (4.8-10.8)
[2017-07-23 04:46] LABS: CALC OSMOLALITY 272 mosm/kg (275-300); CALCIUM 8.7 mg/dL (8.5-10.1); CARBON DIOXIDE 34.8 mmol/L (21.0-32.0); CHLORIDE - SERUM 97 mmol/L (98-107); GLUCOSE 88 mg/dL (74-106); POTASSIUM - SERUM 3.2 mmol/L (3.5-5.1); SODIUM 138 mmol/L (136-145); UREA NITROGEN 6 mg/dL (7-18)
[2017-07-23 04:47] LABS: CREATININE - SERUM 0.3 mg/dL (0.6-1.3); eGFR NON AFRICAN AMERICAN > 90 mL/min (90-120)
[2017-07-24] VITALS (24 sets, daily range): BP systolic 112–175; BP diastolic 55–100
[2017-07-24 05:20] LABS: BASOPHILS 0.4 % (0-2); EOSINOPHILS 0.4 % (0-7); HEMATOCRIT 37.9 % (36.0-48.0); HEMOGLOBIN 11.9 g/dL (12-16); IMMATURE GRANULOCYTES 3.4 % (0-5); LYMPHOCYTES 10.2 % (15-50); MCH 29.2 pg (26.0-34.0); MCHC 31.4 g/dL (31.0-37.0); MCV 93.1 fL (80.0-100.0); MEAN PLATELET VOLUME 8.7 fL (7.4-10.4); MONOCYTES 6.1 % (2-11); NEUTROPHILS 79.5 % (40-80); PLATELET COUNT 362 10x3/uL (130-400); RBC 4.07 10x6/uL (4.00-5.40); RDW 17.4 % (11.5-14.5)
[2017-07-24 05:44] LABS: WBC 8.4 10x3/uL (4.8-10.8)
[2017-07-24 05:50] LABS: CALCIUM 8.9 mg/dL (8.5-10.1); CARBON DIOXIDE 33.4 mmol/L (21.0-32.0); CHLORIDE - SERUM 97 mmol/L (98-107); CREATININE - SERUM 0.3 mg/dL (0.6-1.3); GLUCOSE 125 mg/dL (74-106); SODIUM 135 mmol/L (136-145); eGFR NON AFRICAN AMERICAN > 90 mL/min (90-120)
[2017-07-24 06:15] LABS: CALC OSMOLALITY 267 mosm/kg (275-300); UREA NITROGEN 4 mg/dL (7-18)
[2017-07-24 06:17] LABS: POTASSIUM - SERUM 2.8 mmol/L (3.5-5.1)
[2017-07-24 15:28] LABS: AMYLASE - SERUM 25 U/L (25-115)
[2017-07-24 15:36] LABS: LIPASE 43 U/L (73-393)
[2017-07-25] VITALS (25 sets, daily range): BP systolic 106–155; BP diastolic 51–98
[2017-07-25 04:26] LABS: BASOPHILS 0.2 % (0-2); EOSINOPHILS 0.2 % (0-7); HEMATOCRIT 37.9 % (36.0-48.0); HEMOGLOBIN 11.6 g/dL (12-16); IMMATURE GRANULOCYTES 1.8 % (0-5); LYMPHOCYTES 3.5 % (15-50); MCH 29.1 pg (26.0-34.0); MCHC 30.6 g/dL (31.0-37.0); MONOCYTES 6.5 % (2-11); NEUTROPHILS 87.8 % (40-80); PLATELET COUNT 373 10x3/uL (130-400); RBC 3.99 10x6/uL (4.00-5.40); RDW 17.1 % (11.5-14.5)
[2017-07-25 04:40] LABS: CALCIUM 8.8 mg/dL (8.5-10.1); CARBON DIOXIDE 33.4 mmol/L (21.0-32.0); CHLORIDE - SERUM 97 mmol/L (98-107); GLUCOSE 163 mg/dL (74-106); SODIUM 136 mmol/L (136-145)
[2017-07-25 04:47] LABS: CALC OSMOLALITY 273 mosm/kg (275-300); CREATININE - SERUM 0.2 mg/dL (0.6-1.3); POTASSIUM - SERUM 3.2 mmol/L (3.5-5.1); UREA NITROGEN 7 mg/dL (7-18); eGFR NON AFRICAN AMERICAN > 90 mL/min (90-120)
[2017-07-25 07:10] LABS: MAGNESIUM - SERUM 2.4 mg/dL (1.8-2.4); PHOSPHOROUS 2.6 mg/dL (2.5-4.9)
[2017-07-26] VITALS (24 sets, daily range): BP systolic 82–154; BP diastolic 61–117
[2017-07-26 05:00] LABS: BASOPHILS 0.1 % (0-2); EOSINOPHILS 0.1 % (0-7); HEMATOCRIT 34.9 % (36.0-48.0); HEMOGLOBIN 10.4 g/dL (12-16); IMMATURE GRANULOCYTES 2.2 % (0-5); LYMPHOCYTES 5.2 % (15-50); MCH 29.1 pg (26.0-34.0); MCHC 29.8 g/dL (31.0-37.0); MEAN PLATELET VOLUME 9.3 fL (7.4-10.4); MONOCYTES 6.5 % (2-11); NEUTROPHILS 85.9 % (40-80); PLATELET COUNT 370 10x3/uL (130-400); RBC 3.57 10x6/uL (4.00-5.40); RDW 17.1 % (11.5-14.5); WBC 15.6 10x3/uL (4.8-10.8)
[2017-07-26 05:01] LABS: MCV 97.8 fL (80.0-100.0)
[2017-07-26 05:07] LABS: CALC OSMOLALITY 266 mosm/kg (275-300); CALCIUM 8.9 mg/dL (8.5-10.1); CARBON DIOXIDE 33.9 mmol/L (21.0-32.0); CHLORIDE - SERUM 95 mmol/L (98-107); CREATININE - SERUM 0.2 mg/dL (0.6-1.3); GLUCOSE 121 mg/dL (74-106); SODIUM 133 mmol/L (136-145); UREA NITROGEN 12 mg/dL (7-18); eGFR NON AFRICAN AMERICAN > 90 mL/min (90-120)
[2017-07-27] VITALS (23 sets, daily range): BP systolic 72–135; BP diastolic 40–93
[2017-07-27 05:54] LABS: BASOPHILS 0.1 % (0-2); EOSINOPHILS 0 % (0-7); HEMATOCRIT 33.5 % (36.0-48.0); IMMATURE GRANULOCYTES 1.5 % (0-5); MCH 28.7 pg (26.0-34.0); MCHC 29.9 g/dL (31.0-37.0); MCV 96.3 fL (80.0-100.0); MEAN PLATELET VOLUME 9.6 fL (7.4-10.4); MONOCYTES 2.7 % (2-11); NEUTROPHILS 92.7 % (40-80); PLATELET COUNT 318 10x3/uL (130-400); RBC 3.48 10x6/uL (4.00-5.40); RDW 17.2 % (11.5-14.5)
[2017-07-27 06:17] LABS: ALBUMIN 2.8 g/dL (3.4-5.0); ALKALINE PHOSPHATASE 73 U/L (46-116); ALT (SGPT) 12 U/L (10-68); BILIRUBIN - TOTAL 0.52 mg/dL (0.2-1.3); CALC OSMOLALITY 273 mosm/kg (275-300); CALCIUM 9.5 mg/dL (8.5-10.1); CARBON DIOXIDE 31.8 mmol/L (21.0-32.0); CHLORIDE - SERUM 97 mmol/L (98-107); GLUCOSE 156 mg/dL (74-106); MAGNESIUM - SERUM 2.1 mg/dL (1.8-2.4); PROTEIN - SERUM 6.3 g/dL (6.4-8.2); SODIUM 135 mmol/L (136-145); UREA NITROGEN 14 mg/dL (7-18); WBC 11.6 10x3/uL (4.8-10.8)
[2017-07-27 06:20] LABS: CREATININE - SERUM 0.3 mg/dL (0.6-1.3); POTASSIUM - SERUM 3.3 mmol/L (3.5-5.1); eGFR NON AFRICAN AMERICAN > 90 mL/min (90-120)
[2017-07-28] VITALS: BP 88/54
[2017-07-28 05:10] LABS: BASOPHILS 0.2 % (0-2); EOSINOPHILS 0 % (0-7); HEMATOCRIT 37.2 % (36.0-48.0); HEMOGLOBIN 10.8 g/dL (12-16); IMMATURE GRANULOCYTES 4.5 % (0-5); LYMPHOCYTES 6.1 % (15-50); MEAN PLATELET VOLUME 9.8 fL (7.4-10.4); MONOCYTES 4.1 % (2-11); NEUTROPHILS 85.1 % (40-80); PLATELET COUNT 495 10x3/uL (130-400); RBC 3.72 10x6/uL (4.00-5.40); RDW 17.4 % (11.5-14.5); WBC 22.1 10x3/uL (4.8-10.8)
[2017-07-28 05:27] LABS: ALKALINE PHOSPHATASE 78 U/L (46-116); ALT (SGPT) 15 U/L (10-68); CALC OSMOLALITY 285 mosm/kg (275-300); CALCIUM 9.2 mg/dL (8.5-10.1); CARBON DIOXIDE 34.2 mmol/L (21.0-32.0); CHLORIDE - SERUM 100 mmol/L (98-107); CREATININE - SERUM 0.3 mg/dL (0.6-1.3); GLUCOSE 164 mg/dL (74-106); MAGNESIUM - SERUM 2.3 mg/dL (1.8-2.4); PROTEIN - SERUM 6.8 g/dL (6.4-8.2); SODIUM 140 mmol/L (136-145); UREA NITROGEN 21 mg/dL (7-18); eGFR NON AFRICAN AMERICAN > 90 mL/min (90-120)
[2017-07-28 09:51] VITALS: BP 119/72
[2017-07-28 10:45] VITALS: BP 91/55
[2017-07-28 15:35] VITALS: BP 88/49
[2017-08-14 07:09] LABS: FUNGUS MYCOLOGY CULTURE Final report (())
[2017-09-13 10:06] LABS: ACID FAST CULTURE Negative (()); ACID FAST SMEAR Negative (())
== END 2017-07-28 17:00 | disposition hospice, inpatient (51) | DRG 4 ==
LOC: D.ER 17:33 → D.ICU 21:36 → D.SDCHOLD 21:36 → D.M2 21:36 → D.ICU 22:58 → D.M2 07-27 22:47
PROVIDERS: Emergency Medicine; Family Medicine; Internal Medicine Nephrology; Internal Medicine Pulmonary Disease; Surgery
PROC: 0T9B70Z Drainage of Bladder with Drainage Device, Via Natural or Artificial Opening (ICD-10-PCS; principal; 2017-06-26)
PROC: 5A1955Z Respiratory Ventilation, Greater than 96 Consecutive Hours (ICD-10-PCS; 2017-06-26)
PROC: 02HV33Z Insertion of Infusion Device into Superior Vena Cava, Percutaneous Approach (ICD-10-PCS; 2017-06-28)
PROC: B548ZZA Ultrasonography of Superior Vena Cava, Guidance (ICD-10-PCS; 2017-06-28)
PROC: 0W9930Z Drainage of Right Pleural Cavity with Drainage Device, Percutaneous Approach (ICD-10-PCS; 2017-07-01)
PROC: 0W9930Z Drainage of Right Pleural Cavity with Drainage Device, Percutaneous Approach (ICD-10-PCS; 2017-07-08)
PROC: 3E0L4GC Introduction of Other Therapeutic Substance into Pleural Cavity, Percutaneous Endoscopic Approach (ICD-10-PCS; 2017-07-17)
PROC: 0DB98ZX Excision of Duodenum, Via Natural or Artificial Opening Endoscopic, Diagnostic (ICD-10-PCS; 2017-07-17)
PROC: 0B113F4 Bypass Trachea to Cutaneous with Tracheostomy Device, Percutaneous Approach (ICD-10-PCS; 2017-07-17)
PROC: 0B9J8ZX Drainage of Left Lower Lung Lobe, Via Natural or Artificial Opening Endoscopic, Diagnostic (ICD-10-PCS; 2017-07-17)
PROC: 0B9F8ZX Drainage of Right Lower Lung Lobe, Via Natural or Artificial Opening Endoscopic, Diagnostic (ICD-10-PCS; 2017-07-17)
PROC: 0DH63UZ Insertion of Feeding Device into Stomach, Percutaneous Approach (ICD-10-PCS; 2017-07-17)
PROC: 05H633Z Insertion of Infusion Device into Left Subclavian Vein, Percutaneous Approach (ICD-10-PCS; 2017-07-20)
DX: A41.9 Sepsis, unspecified organism (principal); J96.22 Acute and chronic respiratory failure with hypercapnia; J96.21 Acute and chronic respiratory failure with hypoxia; J15.211 Pneumonia due to Methicillin susceptible Staphylococcus aureus; E43 Unspecified severe protein-calorie malnutrition; I63.9 Cerebral infarction, unspecified; R40.2213 Coma scale, best verbal response, none, at hospital admission; E87.2 Acidosis; J44.1 Chronic obstructive pulmonary disease with (acute) exacerbation; J44.0 Chronic obstructive pulmonary disease with (acute) lower respiratory infection; I42.9 Cardiomyopathy, unspecified; J98.11 Atelectasis; Z68.1 Body mass index [BMI] 19.9 or less, adult; J93.9 Pneumothorax, unspecified; G81.94 Hemiplegia, unspecified affecting left nondominant side; J93.82 Other air leak; K56.7 Ileus, unspecified; E87.1 Hypo-osmolality and hyponatremia; Z51.5 Encounter for palliative care; F41.9 Anxiety disorder, unspecified; F32.9 Major depressive disorder, single episode, unspecified; E88.01 Alpha-1-antitrypsin deficiency; R00.0 Tachycardia, unspecified; Z99.81 Dependence on supplemental oxygen; R74.8 Abnormal levels of other serum enzymes; Z87.891 Personal history of nicotine dependence; J98.2 Interstitial emphysema; E87.6 Hypokalemia; L89.222 Pressure ulcer of left hip, stage 2; R40.2363 Coma scale, best motor response, obeys commands, at hospital admission; R40.2143 Coma scale, eyes open, spontaneous, at hospital admission

== ENCOUNTER 2017-07-28 17:22 | Inpatient (IN) | payer OTHER ==
[~2017-07-28] VITALS: Ht 162.6 cm; Wt 50.9 kg
[2017-07-28 17:34] VITALS: BP 85/49; Ht 162.6 cm; Wt 50.9 kg
[2017-07-28 20:54] VITALS: BP 80/46
== END 2017-07-29 08:57 | DRG 951 ==
LOC: D.M2 17:22
DX: Z51.5 Encounter for palliative care (principal)